=== PATIENT | female | born 1945 | race Caucasian/White ===

== ENCOUNTER 2017-03-22 10:00 | Emergency (ER) | payer MEDICARE, MEDICAID ==
--- NOTE | 2017-03-22 11:00 | RAD ---
CHEST PA AND LATERAL: HISTORY: A 71-year-old female with history of chest pain. COMPARISON: 03/26/15. FINDINGS: Postop midline sternotomy. Minimal cardiomegaly. There appear to be some stable dense calcific irina nges in the region of the mitral valve and mitral valve annulus. No confluent pneumonia, overt sylvester a, or pleural effusion. IMPRESSION: Stable chest. Postop midline sternotomy. No new process. POS: [facility]
[2017-03-22 11:08] LABS: #Lymphocytes 0.8 thou/uL (1.20-3.40); #Monocytes 0.5 thou/uL (0.11-0.59); #Neutrophils 6.3 thou/uL (1.40-6.50); %Eosinophils 0.5 % (0.0-10.0); %Lymphocytes 10.7 % (21.0-51.0); %Monocytes 5.9 % (0.0-10.0); Hematocrit 40.7 % (36.0-47.0); Mean Platelet Volume 7.2 fL (7.4-10.4); Red Blood Cell (RBC) Count 4.33 mill/uL (4.20-5.40); White Blood Cell (WBC) Count 7.6 thou/uL (4.8-10.8)
[2017-03-22] MEDS ORDERED: Acetaminophen 500 MG TAB ONE (11:22)
[2017-03-22 11:30] LABS: ALT (SGPT) 19 U/L (8-55); AST (SGOT) 22 U/L (5-34); Alkaline Phosphatase 84 U/L (40-150); Anion Gap 14 mmol/L (10-20); BUN (Urea Nitrogen) 15 mg/dL (9.8-20.1); Bilirubin, Total 0.7 mg/dL (0.2-1.2); Calc. Creatinine Clearance 0 mL/min (70-130); Calcium 9.3 mg/dL (7.8-10.44); Carbon Dioxide 25 mmol/L (23-31); Chloride 105 mmol/L (98-107); Estimated GFR-MDRD 55; Globulin 3.3 g/dL (2.4-3.5); Protein, Total 7.1 g/dL (6.0-8.3)
[2017-03-22 11:34] LABS: Troponin I 0.014 ng/mL (< 0.028)
[2017-03-22 12:15] LABS: Bilirubin Negative (Negative); Blood, Urine Negative (Negative); Glucose, Urine (Dipstick) Negative (Negative); Ketone, Urine Negative (Negative); Nitrite Negative (Negative); Protein, Urine (Dipstick) 30 mg/dL (Neg-Trace); Urobilinogen 0.2 mg/dL (0.2-1.0)
[2017-03-22 12:18] LABS: Bacteria/HPF None Seen HPF (None Seen); Hyaline Casts/LPF 0-3 HYALINE CAST LPF (0-3 Hyaline); Squamous Epithelial 0-3 HPF (0-3); WBC/HPF 0-3 HPF (0-3)
[2017-03-22 13:46] LABS: Troponin I 0.021 ng/mL (< 0.028)
--- NOTE | 2017-05-09 12:36 | EKG ---
Test Reason : Blood Pressure : / mmHG Vent. Rate : 066 BPM Atrial Rate : 066 BPM P-R Int : 158 ms QRS Dur : 082 ms QT Int : 434 ms P-R-T Axes : 049 055 051 degrees QTc Int : 454 ms Normal sinus rhythm Nospecific ST-T segment abnormalities Normal ECG Confirmed by DAVID CORNEJO ([id number]), senior technical editor ISAMAR FINLEY ([id number] on 05/09/2017 12:35:44 PM Referred By: Confirmed By:DAVID CORNEJO
== END 2017-03-22 14:21 | disposition home or self-care (01) ==
LOC: ERS 10:00
DX: R07.9 Chest pain, unspecified (principal); E11.9 Type 2 diabetes mellitus without complications; E78.5 Hyperlipidemia, unspecified; I10 Essential (primary) hypertension; M19.90 Unspecified osteoarthritis, unspecified site; J45.909 Unspecified asthma, uncomplicated; Z87.891 Personal history of nicotine dependence; Z79.4 Long term (current) use of insulin; Z79.82 Long term (current) use of aspirin; Z79.899 Other long term (current) drug therapy
CPT/HCPCS: 36415; 71020; 80053; 81003; 81015; 82553; 84484; 85025; 87086; 93005

== ENCOUNTER 2017-05-11 18:15 | Inpatient (IN) | payer MEDICARE, MEDICAID ==
[2017-05-11 19:00] LABS: #Eosinphils 0.2 thou/uL (0.0-0.7); #Lymphocytes 0.9 thou/uL (1.20-3.40); #Monocytes 0.9 thou/uL (0.11-0.59); #Neutrophils 5.2 thou/uL (1.40-6.50); %Basophils 0.5 % (0.0-1.0); %Eosinophils 2.4 % (0.0-10.0); %Monocytes 11.9 % (0.0-10.0); %Neutrophils 73.2 % (42.0-75.0); Hemoglobin 12.2 g/dL (12.0-16.0); Mean Corpuscular HGB CONC 32.3 g/dL (32.0-36.0); Mean Corpuscular Hemoglobin 30.3 pg (27.0-31.0); Mean Corpuscular Volume 93.8 fl (81.0-99.0); Mean Platelet Volume 6.7 fL (7.4-10.4); Platelet Count 240 thou/uL (130-400); RBC Distribution Width 15.3 % (11.5-14.5); Red Blood Cell (RBC) Count 4.04 mill/uL (4.20-5.40); White Blood Cell (WBC) Count 7.1 thou/uL (4.8-10.8)
[2017-05-11 19:16] LABS: ALT (SGPT) 20 U/L (8-55); AST (SGOT) 25 U/L (5-34); Albumin 3.9 g/dL (3.4-4.8); Alkaline Phosphatase 84 U/L (40-150); Anion Gap 12 mmol/L (10-20); BUN (Urea Nitrogen) 23 mg/dL (9.8-20.1); Bilirubin, Total 0.5 mg/dL (0.2-1.2); CK (CPK) 100 U/L (29-168); Calc. Creatinine Clearance 0 mL/min (70-130); Calcium 9.8 mg/dL (7.8-10.44); Carbon Dioxide 30 mmol/L (23-31); Chloride 101 mmol/L (98-107); Estimated GFR-MDRD 46; Globulin 3.4 g/dL (2.4-3.5); Glucose 152 mg/dL (80-115); Protein, Total 7.3 g/dL (6.0-8.3); Sodium 138 mmol/L (136-145)
[2017-05-11 19:19] LABS: CKMB 1.2 ng/mL (0-6.6); Troponin I 0.014 ng/mL (< 0.028)
--- NOTE | 2017-05-11 19:22 | RAD ---
AP CHEST: Indication: Cough. IMPRESSION: No focal consolidation. COMMENTS: Stable cardiomegaly. Midline sternotomy changes are similar to comparison dated 11-09-16. No acute osse ous abnormality is evident. POS: FL[facility]
[2017-05-11] MEDS ORDERED: Dextrose 5% in Water 1,000 ML IV PRN (20:00)
[2017-05-11] MEDS ORDERED: Guaifenesin DM 100-10/5 ML UDCUP PO PRN (20:00)
[2017-05-11] MEDS ORDERED: Amlodipine 5 MG TAB PO PRN (20:00)
[2017-05-11] MEDS ORDERED: Senokot 8.6 MG TAB PO PRN (20:00)
[2017-05-11] MEDS ORDERED: Dextrose 50% Abboject 50 ML SYRINGE SLOW IVP PRN (20:00)
[2017-05-11] MEDS ORDERED: methylPREDNISolone Sod Succ/PF 125 MG/2 ML VIAL ONE (20:04)
--- NOTE | 2017-05-11 21:34 | HP ---
REASON FOR ADMISSION: Acute chronic obstructive pulmonary disease exacerbation. HISTORY OF PRESENT ILLNESS: Patient gives history of having right-sided chest pain with coughing spe lls from last Thursday. This has been getting worse to the point she started bringing up brown sputum . She says that it is foul smelling. The right-sided chest discomfort is worse with deep breathing and coughing. No complaints of left-sided chest pain, palpitations, or PND. She normally ambulates inside the house without any assistive devices. Her grandkid had stomach flu, but the patient does n ot have any diarrhea. She uses inhalers in the house, but not nebulizers or oxygen. Has felt feveri sh, but has not measured any temperature as such at home. 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 CURRENT MEDICATIONS: Patient is on Lasix 20 mg daily, Eliquis 5 mg twice daily, Norvasc 5 mg daily, Zocor 20 mg p.o. at bedtime, Multaq 400 mg p.o. twice daily, Lyrica 300 mg p.o. at bedtime, fluoxetin e 40 mg p.o. at bedtime, omega-3 fatty acid 1 capsule daily, fish oil 1 capsule daily, vitamin D3 amador ly, Lopressor twice daily. ALLERGIES: Allergic to PENICILLIN and is LACTOSE intolerant. PERSONAL HISTORY: Quit smoking more than 10 years ago, does not abuse alcohol or drugs now. She stefania es with her daughter. FAMILY HISTORY: Mom in her 80s. She has had diabetes and coronary artery disease. Father too in his 80s. He has had history of rectal cancer, diabetes, and coronary artery disease. REVIEW OF SYSTEMS: The following complete review of systems was negative, unless otherwise mentioned in the HPI or below: Constitutional: Weight loss or gain, ability to conduct usual activities. Skin: Rash, itching. Eyes: Double vision, pain. ENT/Mouth: Nose bleeding, neck stiffness, pain, tenderness. Cardiovascular: Palpitations, dyspnea on exertion, orthopnea. Respiratory: Shortness of breath, wheezing, cough, hemoptysis, fever or night sweats. Gastrointestinal: Poor appetite, abdominal pain, heartburn, nausea, vomiting, constipation, or diarr hea. Genitourinary: Urgency, frequency, dysuria, nocturia. Musculoskeletal: Pain, swelling. Neurologic/Psychiatric: Anxiety, depression. Allergy/Immunologic: Skin rash, bleeding tendency. PHYSICAL EXAMINATION: GENERAL: Patient is a 71-year-old female who is currently not in any acute distress. VITAL SIGNS: Blood pressure 170/60, pulse 70 per minute, respiratory rate 24 per minute, temperature 97.9 degrees Fahrenheit, saturating 89% on room air and 97% on 2 liters nasal cannula. NECK: Supple, no elevated JVD. HEENT: Eyes: Extraocular muscles intact. Pupils reacting to light. Oral cavity mucous membranes a re dry. No exudates or congestion. CARDIOVASCULAR: S1, S2 heard. Regular rhythm. RESPIRATORY: Air entry 1+ bilateral. Scattered wheezes plus bilateral. Rhonchi plus bilateral. ABDOMEN: Soft, bowel sounds heard. No tenderness, rigidity, or guarding. EXTREMITIES: There is 1+ peripheral edema, no calf tenderness. VASCULAR SYSTEM: Peripheral pulses 1+ bilateral. No ischemic ulcerations or gangrene. CENTRAL NERVOUS SYSTEM: No gross focal deficits seen. Patient is alert, awake, and oriented well. PSYCHIATRIC: Patient's mood is euthymic. No hallucinations or delusions. LABORATORY AND X-RAY FINDINGS: EKG done shows normal sinus rhythm at 66 beats per minute, no gross S T-T wave changes. White count of 7, H&H 12 and 37, platelet count 240, MCV is 93 with 73% neutrophil s. Electrolytes are stable. BUN 23, creatinine 1.1, glucose 152. Liver enzymes are within normal l imits. One set of cardiac enzymes are negative. BNP is 260. Albumin is 3.9. Chest x-ray done show s mild cardiomegaly; otherwise no acute abnormality. CLINICAL IMPRESSION AND PLAN: Patient will be under observation on telemetry for acute COPD/asthma e xacerbation. We will place her on DuoNebs q.6 hourly, Solu-Medrol 40 mg IV q.6 hourly, Levaquin 750 mg IV daily. Influenza nasal swab is pending at present. We will continue our Multaq, aspirin, Eliq uis, Norvasc, fluoxetine, 70/30 insulin, Lyrica, Toprol-XL and Zocor as before. Patient's COPD flare -up improves by around 11 in the morning. She will be discharged, if not she will be switched over t o inpatient status. We will also involve walking program for patient to ambulate. She will be on Mu cinex and Tessalon Perles to bring up to help ease with bringing up her sputum.
[2017-05-11] MEDS: Benzonatate 100 MG CAP PO SCH (23:08)
[2017-05-11] MEDS: Acetaminophen 325 MG TAB PO PRN (23:08)
[2017-05-11] MEDS: guaiFENesin ER 600 MG TAB PO SCH (23:08)
[2017-05-11] MEDS: Insulin NPH/Reg Insulin Hm 300 UNITS/3 ML VIAL SC SCH (23:10)
[2017-05-11] MEDS: Apixaban 5 MG TAB PO SCH (23:13)
[2017-05-11] MEDS: Simvastatin 40 MG TAB PO SCH (23:13)
[2017-05-11] MEDS: Pregabalin 75 MG CAP PO SCH (23:13)
[2017-05-11] MEDS: Famotidine 20 MG TAB PO SCH (23:14)
[2017-05-12 02:16] VITALS: BMI 35.2
[2017-05-12 05:52] LABS: #Lymphocytes 0.3 thou/uL (1.20-3.40); #Monocytes 0.1 thou/uL (0.11-0.59); #Neutrophils 6.3 thou/uL (1.40-6.50); %Eosinophils 0.2 % (0.0-10.0); %Lymphocytes 5.1 % (21.0-51.0); %Monocytes 0.9 % (0.0-10.0); %Neutrophils 93.9 % (42.0-75.0); Hemoglobin 11.5 g/dL (12.0-16.0); Mean Corpuscular HGB CONC 32.5 g/dL (32.0-36.0); Mean Corpuscular Hemoglobin 30.2 pg (27.0-31.0); Mean Corpuscular Volume 92.8 fl (81.0-99.0); Mean Platelet Volume 6.9 fL (7.4-10.4); Platelet Count 213 thou/uL (130-400); RBC Distribution Width 15.1 % (11.5-14.5); Red Blood Cell (RBC) Count 3.81 mill/uL (4.20-5.40); White Blood Cell (WBC) Count 6.7 thou/uL (4.8-10.8)
[2017-05-12 06:09] LABS: Anion Gap 15 mmol/L (10-20); BUN (Urea Nitrogen) 27 mg/dL (9.8-20.1); Calc. Creatinine Clearance 68 mL/min (70-130); Calcium 9.1 mg/dL (7.8-10.44); Carbon Dioxide 23 mmol/L (23-31); Chloride 99 mmol/L (98-107); Estimated GFR-MDRD 42; Glucose 274 mg/dL (80-115); Potassium 4.7 mmol/L (3.5-5.1); Sodium 132 mmol/L (136-145)
[2017-05-12] MEDS: HumaLOG 300 UNITS/3 ML VIAL SC PRN ×3 (06:26→21:05)
[2017-05-12] MEDS ORDERED: Insulin NPH/Reg Insulin Hm 300 UNITS/3 ML VIAL SC SCH ×4 (09:00→22:00)
[2017-05-12] MEDS: Dronedarone HCl 400 MG TAB PO SCH ×2 (10:01→17:09)
[2017-05-12] MEDS: Amlodipine 5 MG TAB PO SCH (10:01)
[2017-05-12] MEDS: Benzonatate 100 MG CAP PO SCH ×3 (10:02→21:04)
[2017-05-12] MEDS: Apixaban 5 MG TAB PO SCH ×2 (10:02→21:03)
[2017-05-12] MEDS: Famotidine 20 MG TAB PO SCH ×2 (10:03→21:03)
[2017-05-12] MEDS: FLUoxetine HCl 20 MG/5 ML UDCUP PO SCH (10:03)
[2017-05-12] MEDS: guaiFENesin ER 600 MG TAB PO SCH ×2 (10:03→21:03)
[2017-05-12] MEDS: Insulin NPH/Reg Insulin Hm 300 UNITS/3 ML VIAL SC SCH (10:03)
[2017-05-12] MEDS ORDERED: Diabetic Tussin 200 MG/10 ML UDCUP PO PRN (12:49)
[2017-05-12] MEDS: Doxycycline 100 MG CAP PO SCH (21:03)
[2017-05-12] MEDS: Pregabalin 75 MG CAP PO SCH (21:04)
[2017-05-12] MEDS: Simvastatin 40 MG TAB PO SCH (21:04)
--- NOTE | 2017-05-12 22:20 | PDOC.PN ---
- Subjective Encounter Start Date: 05/12/17 Encounter Start Time: 12:00 Patient seen and examined. SOB/Wheezing +. No overnight events - Objective MAR Reviewed: Yes Vital Signs & Weight: Vital Signs (12 hours) Temp Pulse Resp BP Pulse Ox 05/12/17 19:47 97.2 F L 83 20 159/65 H 92 L 05/12/17 19:23 76 16 97 05/12/17 15:20 97.8 F 76 16 147/62 H 96 I&O: 05/11/17 05/12/17 05/13/17 06:59 06:59 06:59 Intake Total 300 Balance 300 Result Diagrams: 05/13/17 04:19 05/13/17 04:19 Additional Labs: Accuchecks 05/12/17 05/12/17 20:34 17:08 POC Glucose 367 H 309 H Radiology Reviewed by me: Yes (CXR - No infiltrate) EKG Reviewed by me: Yes (Tele SR) Phys Exam - Physical Examination Pt in mild resp distress, Accessory muscle of resp in use Respiratory: no rales, wheezing present Scat rhonchi. symmetrical Cardiovascular: RRR, no rub no heaves/pulsations Gastrointestinal: soft, non-tender, no distention, positive bowel sounds Musculoskeletal: no edema Neurological: non-focal, moves all 4 limbs Psychiatric: normal affect, A&O x 3 Dx/Plan - Plan IMPRESSION: 1. Acute hypoxic Resp failure/COPD Exacerbation 2. Par Afib on anticoag 3. DM2 - uncontrolled 4. HTN 5. Obesity BMI 35/CKD 3/CAD s/p CABG/Dyslipidemia PLAN: * Change Levaquin to Ceftriaxone with Doxy (Interaction with Multaq) * Cont IV Steroids * Increase Insulin dose due to hyperglycemia * Cont current meds as below * Change to inpt Review of Systems - Review of Systems Cardiovascular: negative: chest pain, palpitations, orthopnea, paroxysmal nocturnal dyspnea, edema, light headedness Gastrointestinal: negative: Nausea, Vomiting, Abdominal Pain, Diarrhea, Constipation, Melena, Hematochezia, Other Genitourinary: negative: Dysuria, Frequency, Incontinence, Hematuria, Retention - Medications/Allergies Allergies/Adverse Reactions: Allergies Allergy/AdvReac Type Severity Reaction Status Date / Time Penicillins Allergy Intermediate Verified 05/11/17 21:57 lactose Allergy Verified 05/11/17 21:57 Medications: Current Medications Acetaminophen (Tylenol) 650 mg PO Q4H PRN PRN Reason: Headache/Fever or Pain Last Admin: 05/11/17 23:08 Dose: 650 mg Albuterol/Ipratropium (Duoneb) 3 ml NEB [id number] [facility] Last Admin: 05/12/17 19:23 Dose: 3 ml Amlodipine Besylate (Norvasc) 5 mg PO DAILY [facility] Last Admin: 05/12/17 10:01 Dose: 5 mg Apixaban (Eliquis) 5 mg PO BID [facility] Last Admin: 05/12/17 21:03 Dose: 5 mg Aspirin (Aspirin Chewable) 81 mg PO DAILY [facility] Last Admin: 05/12/17 10:02 Dose: 81 mg Benzonatate (Tessalon) 100 mg PO TID [facility] Last Admin: 05/12/17 21:04 Dose: 100 mg Dextrose/Water (Dextrose 50%) 25 gm SLOW IVP PRN PRN PRN Reason: Hypoglycemia Doxycycline Hyclate (Vibramycin) 100 mg PO BID [facility] Last Admin: 05/12/17 21:03 Dose: 100 mg Dronedarone (Multaq) 400 mg PO BID-[facility] Last Admin: 05/12/17 17:09 Dose: 400 mg Famotidine (Pepcid) 20 mg PO BID [facility] Last Admin: 05/12/17 21:03 Dose: 20 mg Fluoxetine HCl (Prozac Oral Soln) 40 mg PO DAILY [facility] Last Admin: 05/12/17 10:03 Dose: 40 mg Glucagon (Glucagon) 1 mg IM PRN PRN PRN Reason: Hypoglycemia Guaifenesin (Mucinex) 600 mg PO Q12HR [facility] Last Admin: 05/12/17 21:03 Dose: 600 mg Guaifenesin (Robitussin Sf) 200 mg PO Q4H PRN PRN Reason: Cough Guaifenesin/Dextromethorphan (Robitussin Dm) 15 ml PO Q4H PRN PRN Reason: Cough Dextrose/Water (D5w) 1,000 mls @ 0 mls/hr IV .Q0M PRN; As Directed PRN Reason: Hypoglycemia Insulin Human Isoph/Insulin Regular (Humulin 70/30) 28 units SC BID-[facility] Insulin Human Isoph/Insulin Regular (Humulin 70/30) 28 units SC NOW [facility] Stop: 05/12/17 23:59 Insulin Human Lispro (Humalog) 0 units SC .MILD SLIDING SCALE PRN PRN Reason: Mild Correctional Scale Last Admin: 05/12/17 13:21 Dose: 5 unit Insulin Human Lispro (Humalog) 0 units SC .BEDTIME SLIDING SC PRN PRN Reason: Bedtime Correctional Scale Last Admin: 05/12/17 21:05 Dose: 5 unit Methylprednisolone Sodium Succinate (Solu-Medrol) 20 mg IVP Q8HR [facility] Last Admin: 05/12/17 21:57 Dose: 20 mg Metoprolol Succinate (Toprol Xl) 25 mg PO DAILY [facility] Last Admin: 05/12/17 10:03 Dose: 25 mg Pregabalin (Lyrica) 300 mg PO HS [facility] Last Admin: 05/12/17 21:04 Dose: 300 mg Senna (Senokot) 2 tab PO HSPRN PRN PRN Reason: Constipation Simvastatin (Zocor) 20 mg PO QPM [facility] Last Admin: 05/12/17 21:04 Dose: 20 mg Sodium Chloride (Flush - Normal Saline) 10 ml IVF Q12HR [facility] Last Admin: 05/12/17 21:05 Dose: 10 ml Sodium Chloride (Flush - Normal Saline) 10 ml IVF PRN PRN PRN Reason: Saline Flush Last Admin: 05/12/17 21:56 Dose: 10 ml
[2017-05-13] MEDS: Acetaminophen 325 MG TAB PO PRN (00:19)
[2017-05-13] MEDS: HumaLOG 300 UNITS/3 ML VIAL SC PRN ×3 (02:13→17:33)
[2017-05-13 05:37] LABS: ALT (SGPT) 19 U/L (8-55); AST (SGOT) 22 U/L (5-34); Albumin 3.4 g/dL (3.4-4.8); Alkaline Phosphatase 70 U/L (40-150); Anion Gap 15 mmol/L (10-20); BUN (Urea Nitrogen) 33 mg/dL (9.8-20.1); Bilirubin, Total 0.5 mg/dL (0.2-1.2); Calc. Creatinine Clearance 78 mL/min (70-130); Calcium 9.3 mg/dL (7.8-10.44); Carbon Dioxide 24 mmol/L (23-31); Chloride 98 mmol/L (98-107); Estimated GFR-MDRD 49; Glucose 124 mg/dL (80-115); Magnesium 2.1 mg/dL (1.6-2.6); Potassium 4.8 mmol/L (3.5-5.1); Protein, Total 6.4 g/dL (6.0-8.3); Sodium 132 mmol/L (136-145)
[2017-05-13 06:43] LABS: Hemoglobin 11.1 g/dL (12.0-16.0); Mean Corpuscular HGB CONC 32.9 g/dL (32.0-36.0); Mean Corpuscular Hemoglobin 30.4 pg (27.0-31.0); Mean Corpuscular Volume 92.5 fl (81.0-99.0); Platelet Count 240 thou/uL (130-400); RBC Distribution Width 15.3 % (11.5-14.5); Red Blood Cell (RBC) Count 3.65 mill/uL (4.20-5.40); White Blood Cell (WBC) Count 12.8 thou/uL (4.8-10.8)
[2017-05-13 06:57] LABS: Anisocytosis SLIGHT = 6-15 cells (100X) (0-5/hpf); Band 5 % (5-11); Lymphocytes 5 % (21-51); MDiff Complete? YES; Monocytes 2 % (0-10); Neutrophil 87 % (42-75); PLT Morphology Comment Appears Adequate; Reactive Lymphocytes 1 % (0-10)
[2017-05-13] MEDS: Dronedarone HCl 400 MG TAB PO SCH ×2 (09:36→16:30)
[2017-05-13] MEDS: FLUoxetine HCl 20 MG/5 ML UDCUP PO SCH (09:37)
[2017-05-13] MEDS: guaiFENesin ER 600 MG TAB PO SCH ×2 (09:37→21:18)
[2017-05-13] MEDS: Benzonatate 100 MG CAP PO SCH ×3 (09:37→21:18)
[2017-05-13] MEDS: Amlodipine 5 MG TAB PO SCH (09:37)
[2017-05-13] MEDS: Apixaban 5 MG TAB PO SCH ×2 (09:37→21:17)
[2017-05-13] MEDS: Famotidine 20 MG TAB PO SCH ×2 (09:38→21:18)
[2017-05-13] MEDS: Doxycycline 100 MG CAP PO SCH ×2 (09:38→21:17)
[2017-05-13] MEDS: Insulin NPH/Reg Insulin Hm 300 UNITS/3 ML VIAL SC SCH ×2 (09:39→17:32)
--- NOTE | 2017-05-13 21:05 | PDOC.PN ---
- Subjective Encounter Start Date: 05/13/17 Encounter Start Time: 11:00 Patient seen and examined. SOB on exertion +. Cough with scant production +. No overnight events - Objective MAR Reviewed: Yes Vital Signs & Weight: Vital Signs (12 hours) Temp Pulse Resp BP Pulse Ox 05/13/17 20:08 97.6 F 67 22 H 128/70 93 L 05/13/17 17:00 97.4 F L 67 22 H 94 L 05/13/17 16:50 97.4 F L 67 22 H 153/71 H 94 L 05/13/17 15:57 66 16 05/13/17 14:56 97.6 F 66 18 157/71 H 94 L 05/13/17 11:47 89 L 05/13/17 11:45 97.7 F 68 20 144/65 H 89 L 05/13/17 09:37 73 I&O: 05/12/17 05/13/17 05/14/17 06:59 06:59 06:59 Intake Total 1680 480 Output Total 800 1600 Balance 880 -1120 Result Diagrams: 05/13/17 04:19 05/13/17 04:19 Additional Labs: Accuchecks 05/13/17 05/13/17 05/13/17 16:56 11:49 02:07 POC Glucose 176 H 258 H 215 H 05/12/17 20:34 POC Glucose 367 H Phys Exam - Physical Examination Constitutional: NAD Respiratory: no rales Scat wheezing/rhochi Cardiovascular: RRR, no rub Gastrointestinal: soft, non-tender, positive bowel sounds Neurological: non-focal, moves all 4 limbs Dx/Plan - Plan IMPRESSION: 1. Acute hypoxic Resp failure/COPD Exacerbation 2. Par Afib on anticoag 3. DM2 - uncontrolled 4. HTN 5. Obesity BMI 35/CKD 3/CAD s/p CABG/Dyslipidemia PLAN: * Cont Ceftriaxone with Doxy * Cont IV Steroids at current dose * Novolin 70/30 changed to 28 units BID * Cont current meds as below * Probably need home O2 at dc Review of Systems - Review of Systems Cardiovascular: negative: chest pain, palpitations, orthopnea, paroxysmal nocturnal dyspnea, edema, light headedness Gastrointestinal: negative: Nausea, Vomiting, Abdominal Pain, Diarrhea, Constipation, Melena, Hematochezia Genitourinary: negative: Dysuria, Frequency, Incontinence, Hematuria, Retention - Medications/Allergies Allergies/Adverse Reactions: Allergies Allergy/AdvReac Type Severity Reaction Status Date / Time Penicillins Allergy Intermediate Verified 05/11/17 21:57 lactose Allergy Verified 05/11/17 21:57 Medications: Current Medications Acetaminophen (Tylenol) 650 mg PO Q4H PRN PRN Reason: Headache/Fever or Pain Last Admin: 05/13/17 00:19 Dose: 650 mg Albuterol/Ipratropium (Duoneb) 3 ml NEB [id number] [facility] Last Admin: 05/13/17 19:40 Dose: 3 ml Amlodipine Besylate (Norvasc) 5 mg PO DAILY [facility] Last Admin: 05/13/17 09:37 Dose: 5 mg Apixaban (Eliquis) 5 mg PO BID [facility] Last Admin: 05/13/17 09:37 Dose: 5 mg Aspirin (Aspirin Chewable) 81 mg PO DAILY [facility] Last Admin: 05/13/17 09:37 Dose: 81 mg Benzonatate (Tessalon) 100 mg PO TID [facility] Last Admin: 05/13/17 16:30 Dose: Not Given Dextrose/Water (Dextrose 50%) 25 gm SLOW IVP PRN PRN PRN Reason: Hypoglycemia Doxycycline Hyclate (Vibramycin) 100 mg PO BID [facility] Last Admin: 05/13/17 09:38 Dose: 100 mg Dronedarone (Multaq) 400 mg PO BID-[facility] Last Admin: 05/13/17 16:30 Dose: 400 mg Famotidine (Pepcid) 20 mg PO BID [facility] Last Admin: 05/13/17 09:38 Dose: 20 mg Fluoxetine HCl (Prozac Oral Soln) 40 mg PO DAILY [facility] Last Admin: 05/13/17 09:37 Dose: 40 mg Glucagon (Glucagon) 1 mg IM PRN PRN PRN Reason: Hypoglycemia Guaifenesin (Mucinex) 600 mg PO Q12HR [facility] Last Admin: 05/13/17 09:37 Dose: 600 mg Guaifenesin (Robitussin Sf) 200 mg PO Q4H PRN PRN Reason: Cough Last Admin: 05/13/17 00:20 Dose: 200 mg Guaifenesin/Dextromethorphan (Robitussin Dm) 15 ml PO Q4H PRN PRN Reason: Cough Dextrose/Water (D5w) 1,000 mls @ 0 mls/hr IV .Q0M PRN; As Directed PRN Reason: Hypoglycemia Insulin Human Isoph/Insulin Regular (Humulin 70/30) 28 units SC BID-[facility] Last Admin: 05/13/17 17:32 Dose: 28 unit Insulin Human Lispro (Humalog) 0 units SC .MILD SLIDING SCALE PRN PRN Reason: Mild Correctional Scale Last Admin: 05/13/17 17:33 Dose: 2 unit Insulin Human Lispro (Humalog) 0 units SC .BEDTIME SLIDING SC PRN PRN Reason: Bedtime Correctional Scale Last Admin: 05/13/17 02:13 Dose: 2 unit Methylprednisolone Sodium Succinate (Solu-Medrol) 20 mg IVP Q8HR [facility] Last Admin: 05/13/17 15:14 Dose: 20 mg Metoprolol Succinate (Toprol Xl) 25 mg PO DAILY [facility] Last Admin: 05/13/17 09:38 Dose: 25 mg Pregabalin (Lyrica) 300 mg PO HS [facility] Last Admin: 05/12/17 21:04 Dose: 300 mg Senna (Senokot) 2 tab PO HSPRN PRN PRN Reason: Constipation Simvastatin (Zocor) 20 mg PO QPM [facility] Last Admin: 05/12/17 21:04 Dose: 20 mg Sodium Chloride (Flush - Normal Saline) 10 ml IVF Q12HR [facility] Last Admin: 05/13/17 11:31 Dose: 10 ml Sodium Chloride (Flush - Normal Saline) 10 ml IVF PRN PRN PRN Reason: Saline Flush Last Admin: 05/13/17 06:00 Dose: 10 ml
[2017-05-13] MEDS: Pregabalin 75 MG CAP PO SCH (21:17)
[2017-05-13] MEDS: Simvastatin 40 MG TAB PO SCH (21:18)
[2017-05-14] MEDS: HumaLOG 300 UNITS/3 ML VIAL SC PRN ×3 (05:49→20:30)
[2017-05-14] MEDS: Amlodipine 5 MG TAB PO SCH (08:10)
[2017-05-14] MEDS: Apixaban 5 MG TAB PO SCH ×2 (08:10→20:20)
[2017-05-14] MEDS: Benzonatate 100 MG CAP PO SCH ×3 (08:10→20:19)
[2017-05-14] MEDS: guaiFENesin ER 600 MG TAB PO SCH ×2 (08:10→20:20)
[2017-05-14] MEDS: Dronedarone HCl 400 MG TAB PO SCH ×2 (08:10→16:19)
[2017-05-14] MEDS: Doxycycline 100 MG CAP PO SCH ×2 (08:10→20:18)
[2017-05-14] MEDS: Famotidine 20 MG TAB PO SCH ×2 (08:10→20:20)
[2017-05-14] MEDS: Insulin NPH/Reg Insulin Hm 300 UNITS/3 ML VIAL SC SCH ×2 (08:11→16:19)
[2017-05-14] MEDS: FLUoxetine HCl 20 MG/5 ML UDCUP PO SCH (08:11)
--- NOTE | 2017-05-14 17:27 | PDOC.PN ---
- Subjective Encounter Start Date: 05/14/17 Encounter Start Time: 16:00 Patient seen and examined. SOB improving. Cough +. No overnight events - Objective MAR Reviewed: Yes Vital Signs & Weight: Vital Signs (12 hours) Temp Pulse Resp BP Pulse Ox 05/14/17 16:37 98.3 F 69 20 149/75 H 95 05/14/17 11:30 97.4 F L 68 20 145/69 H 90 L 05/14/17 08:10 73 05/14/17 08:02 97.7 F 73 20 147/74 H 93 L 05/14/17 08:00 97.7 F 73 20 93 L 05/14/17 06:28 62 16 92 L I&O: 05/13/17 05/14/17 05/15/17 06:59 06:59 06:59 Intake Total 1680 480 Output Total 800 1600 Balance 880 -1120 Result Diagrams: 05/13/17 04:19 05/13/17 04:19 Additional Labs: Accuchecks 05/14/17 05/14/17 05/14/17 16:06 11:15 05:25 POC Glucose 137 H 308 H 214 H 05/13/17 21:32 POC Glucose 259 H Phys Exam - Physical Examination Constitutional: NAD Respiratory: no rales, no rhonchi Scat wheezing Cardiovascular: RRR, no rub Gastrointestinal: soft, non-tender, positive bowel sounds Musculoskeletal: no edema Neurological: moves all 4 limbs Dx/Plan - Plan IMPRESSION: 1. Acute hypoxic Resp failure/COPD Exacerbation - improving 2. Par Afib on anticoag 3. DM2 - uncontrolled 4. HTN 5. Obesity BMI 35/CKD 3/CAD s/p CABG/Dyslipidemia PLAN: * Change IV steroids to PO * DC IV Ceftriaxone at dc * Cont PO Doxy * Cont Novolin 70/30 at 28 units BID * Cont current meds as below * Probably need home O2 at dc * DC in AM if stable Review of Systems - Review of Systems Cardiovascular: negative: chest pain, palpitations, orthopnea, paroxysmal nocturnal dyspnea, edema, light headedness Gastrointestinal: negative: Nausea, Vomiting, Abdominal Pain, Diarrhea, Constipation, Melena, Hematochezia - Medications/Allergies Allergies/Adverse Reactions: Allergies Allergy/AdvReac Type Severity Reaction Status Date / Time Penicillins Allergy Intermediate Verified 05/11/17 21:57 lactose Allergy Verified 05/11/17 21:57 Medications: Current Medications Acetaminophen (Tylenol) 650 mg PO Q4H PRN PRN Reason: Headache/Fever or Pain Last Admin: 05/13/17 00:19 Dose: 650 mg Albuterol/Ipratropium (Duoneb) 3 ml NEB [id number] [facility] Last Admin: 05/14/17 16:27 Dose: Not Given Amlodipine Besylate (Norvasc) 5 mg PO DAILY [facility] Last Admin: 05/14/17 08:10 Dose: 5 mg Apixaban (Eliquis) 5 mg PO BID [facility] Last Admin: 05/14/17 08:10 Dose: 5 mg Aspirin (Aspirin Chewable) 81 mg PO DAILY [facility] Last Admin: 05/14/17 08:10 Dose: 81 mg Benzonatate (Tessalon) 100 mg PO TID [facility] Last Admin: 05/14/17 14:01 Dose: 100 mg Dextrose/Water (Dextrose 50%) 25 gm SLOW IVP PRN PRN PRN Reason: Hypoglycemia Doxycycline Hyclate (Vibramycin) 100 mg PO BID [facility] Last Admin: 05/14/17 08:10 Dose: 100 mg Dronedarone (Multaq) 400 mg PO BID-[facility] Last Admin: 05/14/17 16:19 Dose: 400 mg Famotidine (Pepcid) 20 mg PO BID [facility] Last Admin: 05/14/17 08:10 Dose: 20 mg Fluoxetine HCl (Prozac Oral Soln) 40 mg PO DAILY [facility] Last Admin: 05/14/17 08:11 Dose: 40 mg Glucagon (Glucagon) 1 mg IM PRN PRN PRN Reason: Hypoglycemia Guaifenesin (Mucinex) 600 mg PO Q12HR [facility] Last Admin: 05/14/17 08:10 Dose: 600 mg Guaifenesin (Robitussin Sf) 200 mg PO Q4H PRN PRN Reason: Cough Last Admin: 05/13/17 00:20 Dose: 200 mg Guaifenesin/Dextromethorphan (Robitussin Dm) 15 ml PO Q4H PRN PRN Reason: Cough Dextrose/Water (D5w) 1,000 mls @ 0 mls/hr IV .Q0M PRN; As Directed PRN Reason: Hypoglycemia Insulin Human Isoph/Insulin Regular (Humulin 70/30) 28 units SC BID-[facility] Last Admin: 05/14/17 16:19 Dose: 28 unit Insulin Human Lispro (Humalog) 0 units SC .MILD SLIDING SCALE PRN PRN Reason: Mild Correctional Scale Last Admin: 05/14/17 11:17 Dose: 5 unit Insulin Human Lispro (Humalog) 0 units SC .BEDTIME SLIDING SC PRN PRN Reason: Bedtime Correctional Scale Last Admin: 05/13/17 02:13 Dose: 2 unit Metoprolol Succinate (Toprol Xl) 25 mg PO DAILY [facility] Last Admin: 05/14/17 08:10 Dose: 25 mg Prednisone (Prednisone) 20 mg PO QAM-[facility] Pregabalin (Lyrica) 300 mg PO HS [facility] Last Admin: 05/13/17 21:17 Dose: 300 mg Senna (Senokot) 2 tab PO HSPRN PRN PRN Reason: Constipation Simvastatin (Zocor) 20 mg PO QPM [facility] Last Admin: 05/13/17 21:18 Dose: 20 mg Sodium Chloride (Flush - Normal Saline) 10 ml IVF Q12HR [facility] Last Admin: 05/14/17 08:15 Dose: 10 ml Sodium Chloride (Flush - Normal Saline) 10 ml IVF PRN PRN PRN Reason: Saline Flush Last Admin: 05/13/17 06:00 Dose: 10 ml
[2017-05-14] MEDS: Pregabalin 75 MG CAP PO SCH (20:19)
[2017-05-14] MEDS: Simvastatin 40 MG TAB PO SCH (20:19)
[2017-05-15] MEDS ORDERED: predniSONE 20 MG TAB PO SCH (08:00)
[2017-05-15] MEDS: FLUoxetine HCl 20 MG/5 ML UDCUP PO SCH (08:02)
[2017-05-15] MEDS: Famotidine 20 MG TAB PO SCH (08:03)
[2017-05-15] MEDS: Benzonatate 100 MG CAP PO SCH ×2 (08:03→14:41)
[2017-05-15] MEDS: guaiFENesin ER 600 MG TAB PO SCH (08:03)
[2017-05-15] MEDS: Doxycycline 100 MG CAP PO SCH (08:03)
[2017-05-15] MEDS: Apixaban 5 MG TAB PO SCH (08:03)
[2017-05-15] MEDS: Amlodipine 5 MG TAB PO SCH (08:03)
[2017-05-15] MEDS: Dronedarone HCl 400 MG TAB PO SCH (08:03)
[2017-05-15] MEDS: Insulin NPH/Reg Insulin Hm 300 UNITS/3 ML VIAL SC SCH (08:04)
[2017-05-15] MEDS: Acetaminophen 325 MG TAB PO PRN (09:26)
--- NOTE | 2017-05-15 13:13 | DIS ---
DATE OF ADMISSION: 05/12/2017 DATE OF DISCHARGE: 05/15/2017 DISCHARGE DISPOSITION: Home. FOLLOWUP: 1. Follow up with primary care physician, Kristi Castro in 1 week. 2. Home oxygen has been arranged. The patient was seen and examined on the day of discharge. Denies any new complaints. No chest pain , shortness of breath, palpitations. Overall, symptomatically feels much better. ALLERGIES: PENICILLIN and LACTOSE. DISCHARGE MEDICATIONS: 1. Doxycycline 100 mg twice a day for next 4 days. 2. Prednisone taper. 3. Other home medications were resumed including amlodipine 5 mg daily, Eliquis 5 mg b.i.d., aspirin 81 mg daily, vitamin D3 2000 units b.i.d., Multaq 400 mg b.i.d., fish oil b.i.d., Prozac 40 mg daily , Lasix 20 mg daily, NovoLog mix 70-30 20 units b.i.d., Toprol-XL 25 mg daily, Lyrica 300 mg at [facility], simvastatin 20 mg q.p.m. INPATIENT CONSULTANTS: None. BRIEF HOSPITAL COURSE: The patient is a 71-year-old female with COPD, coronary artery disease, hyper tension and diabetes mellitus type 2, presented to the hospital with worsening shortness of breath. Her workup in the emergency room was consistent with acute hypoxic respiratory failure secondary to c hronic obstructive pulmonary disease exacerbation. She showed good improvement with steroids, antibi otics and nebulizer treatments. On the day of discharge, she quantified for home oxygen which will b e arranged. Symptomatically, she feels much better and stable for discharge. Plan of care was discussed with the patient in detail. She stated understanding. FINAL DIAGNOSES: 1. Acute hypoxic respiratory failure secondary to chronic obstructive pulmonary disease exacerbation . 2. Chronic respiratory failure. Home oxygen will be arranged. 3. Diabetes mellitus type 2, uncontrolled secondary to steroids. 4. Paroxysmal atrial fibrillation on anticoagulation. 5. Hypertension. 6. Obesity with a BMI of 35. 7. Chronic kidney disease stage 3. 8. Coronary artery disease, status post coronary artery bypass graft. 9. Dyslipidemia. Plan of care was discussed with the patient in detail. She stated understanding. Total time coordinating the discharge of this patient including the home oxygen setup was 35 minutes.
[2017-05-15 15:37] VITALS: BP 171/78; TEMP 97.2
--- NOTE | 2017-06-20 20:17 | EKG ---
Test Reason : Blood Pressure : / mmHG Vent. Rate : 066 BPM Atrial Rate : 066 BPM P-R Int : 178 ms QRS Dur : 086 ms QT Int : 418 ms P-R-T Axes : 038 059 039 degrees QTc Int : 438 ms Normal sinus rhythm with sinus arrhythmia Normal ECG Confirmed by TO JOSE MANUEL Mukherjee ([id number]), city editor ISAMAR FINLEY ([id number]) on 06/20/2017 8:17:00 PM Referred By: Confirmed By:JOSE MANUEL ECHAVARRIA M.D.
== END 2017-05-15 15:23 | disposition home or self-care (01) | DRG 189 ==
LOC: ERS 18:15 → 2SW 19:01 → OBSVTOIN 05-12 14:17 → T4-A 05-13 16:25
PROVIDERS: ADMIT Internal Medicine; ATTEND Internal Medicine
DX: J96.21 Acute and chronic respiratory failure with hypoxia (principal); E11.22 Type 2 diabetes mellitus with diabetic chronic kidney disease; E11.65 Type 2 diabetes mellitus with hyperglycemia; J44.1 Chronic obstructive pulmonary disease with (acute) exacerbation; I48.0 Paroxysmal atrial fibrillation; Z79.01 Long term (current) use of anticoagulants; E66.9 Obesity, unspecified; Z68.35 Body mass index [BMI] 35.0-35.9, adult; E78.5 Hyperlipidemia, unspecified; I25.10 Atherosclerotic heart disease of native coronary artery without angina pectoris; Z95.1 Presence of aortocoronary bypass graft; I12.9 Hypertensive chronic kidney disease with stage 1 through stage 4 chronic kidney disease, or unspecified chronic kidney disease; N18.3 Chronic kidney disease, stage 3 (moderate); T38.0X5A Adverse effect of glucocorticoids and synthetic analogues, initial encounter; Z23 Encounter for immunization; Z79.4 Long term (current) use of insulin
CPT/HCPCS: 36415; 36416; 71045; 80048; 80053; 82553; 83605; 83735; 83880; 84484; 85025; 87040; 87070; 87205; 87804; 90471; 90732; 93005; 94640; 94760; 96374; A4216; G0009; J1956; J2920; J2930; J7506; J7620

== ENCOUNTER 2017-06-01 14:05 | Outpatient (CLI) | payer MEDICARE, MEDICAID ==
--- NOTE | 2017-06-01 15:40 | RAD ---
RADIOGRAPH CHEST 2 VIEWS: Date: 06/01/17. Time: 2:57 p.m. HISTORY: A 71-year-old female with fever. COMPARISON: 05/11/17. FINDINGS: There is cardiomegaly, and the cardiac size has increased since the prior study. There are diffuse b ilateral mild interstitial infiltrates, which could represent pulmonary interstitial edema, new or wo rse since the prior study. Sternotomy wires are again noted. No pneumothorax. No consolidation. N o definite pleural effusion identified. IMPRESSION: 1. Diffuse mild interstitial densities, which questionably represent pulmonary interstitial edema. 2. Cardiomegaly. 3. The findings questionably represent congestive heart failure. 4. Recommend short interval followup. [facility] [] POS: [facility]
== END 2017-06-01 14:06 | disposition home or self-care (01) ==
LOC: RAD-FRANK 14:05
PROVIDERS: ATTEND Nurse Practitioner Family
DX: R50.9 Fever, unspecified (principal); J98.4 Other disorders of lung; I51.7 Cardiomegaly
CPT/HCPCS: 71046

== ENCOUNTER 2017-06-02 10:46 | Observation (INO) | payer MEDICARE, MEDICAID ==
[2017-06-02] MEDS ORDERED: Acetaminophen 500 MG TAB ONE (11:01)
[2017-06-02 11:25] LABS: #Lymphocytes 0.8 thou/uL (1.20-3.40); #Monocytes 0.4 thou/uL (0.11-0.59); #Neutrophils 2.4 thou/uL (1.40-6.50); %Basophils 0.4 % (0.0-1.0); %Eosinophils 0.2 % (0.0-10.0); %Lymphocytes 21.6 % (21.0-51.0); %Monocytes 10.5 % (0.0-10.0); %Neutrophils 67.3 % (42.0-75.0); Hemoglobin 12.9 g/dL (12.0-16.0); Mean Corpuscular HGB CONC 31.9 g/dL (32.0-36.0); Mean Corpuscular Hemoglobin 29.3 pg (27.0-31.0); Mean Corpuscular Volume 92.1 fl (81.0-99.0); Mean Platelet Volume 7.5 fL (7.4-10.4); Platelet Count 143 thou/uL (130-400); RBC Distribution Width 15.6 % (11.5-14.5); White Blood Cell (WBC) Count 3.6 thou/uL (4.8-10.8)
[2017-06-02 11:50] LABS: ALT (SGPT) 25 U/L (8-55); AST (SGOT) 31 U/L (5-34); Albumin 3.6 g/dL (3.4-4.8); Alkaline Phosphatase 56 U/L (40-150); Anion Gap 16 mmol/L (10-20); BUN (Urea Nitrogen) 17 mg/dL (9.8-20.1); Bilirubin, Total 0.5 mg/dL (0.2-1.2); CK (CPK) 131 U/L (29-168); Calc. Creatinine Clearance 0 mL/min (70-130); Calcium 9.1 mg/dL (7.8-10.44); Carbon Dioxide 24 mmol/L (23-31); Chloride 101 mmol/L (98-107); Estimated GFR-MDRD 64; Globulin 3.2 g/dL (2.4-3.5); Glucose 149 mg/dL (80-115); Potassium 4.3 mmol/L (3.5-5.1); Protein, Total 6.8 g/dL (6.0-8.3); Sodium 137 mmol/L (136-145)
[2017-06-02 11:51] LABS: CKMB 1.7 ng/mL (0-6.6); Troponin I 0.084 ng/mL (< 0.028)
--- NOTE | 2017-06-02 12:05 | RAD ---
CHEST 1 VIEW: Date: 06/02/17 HISTORY: Chest pain. COMPARISON: 05/30/17, 06/01/17. FINDINGS: Portable upright chest demonstrates sternotomy wires. Normal cardiac silhouette. Pulmonary vessels ar e slightly prominent. Patchy interstitial opacities superimposed upon chronic change. No pneumothorax or osseous abnormalities. IMPRESSION: 1. Atherosclerosis. 2. Interstitial infiltrates superimposed upon chronic change. POS: [facility]
[2017-06-02 15:10] LABS: Troponin I 0.074 ng/mL (< 0.028)
[2017-06-02] MEDS ORDERED: Guaifenesin DM 100-10/5 ML UDCUP PO PRN (15:34)
[2017-06-02 15:54] VITALS: BMI 35.9
--- NOTE | 2017-06-02 16:06 | HP ---
REASON FOR ADMISSION: Chest pain and severe deconditioning. HISTORY OF PRESENT ILLNESS: The patient gives history of feeling sick for almost a week now. The pa nika has had nauseous feeling and has not been able to eat well. She was also feeling weak and had felt feverish. This was from Thursday. She went to see her primary care physician yesterday, Ms. Kristi Bustillo. She was checked for flu and it was negative. The patient has complaints of cough with expe ctoration of brown sputum. She has had some back pain which started this morning. This was associat ed with headache. Home health came to check on her this morning and they asked her to go to the [facility] room. Her daughter who is here at bedside also mentions that her family members have had flu-l jordon illness and patient also got it. On Thursday, patient's blood pressure was 88/40. Yesterday when they went to see her primary care physician, Dr. Kristi Bustillo, most of her medications were discontinu ed and she was asked to take only Toprol-XL, Eliquis, and Multaq. Currently, she has no complaints o f shortness of breath, chest pain or palpitation. PAST MEDICAL AND SURGICAL HISTORY: Chronic atrial fibrillation, hypertension, diabetes mellitus type 2, history of CABG for 4-vessel disease, hysterectomy, bilateral carotid artery disease, dyslipidemi a, peripheral neuropathy, tonsillectomy, and depression. CURRENT MEDICATIONS: The patient is on Toprol-XL 25 mg daily, Eliquis 5 mg twice daily, Multaq 400 m g twice daily, and NovoLog 70/30 two times daily. ALLERGIES: Allergic to LACTOSE and PENICILLIN. PERSONAL HISTORY: Quit smoking more than 10 years ago, does not abuse alcohol or drugs. She lives w ith her daughter. FAMILY HISTORY: Mother had history of diabetes and coronary artery disease. Both parents in . Father had history of rectal cancer, diabetes and coronary artery disease. REVIEW OF SYSTEMS: The following complete review of systems was negative, unless otherwise mentioned in the HPI or below: Constitutional: Weight loss or gain, ability to conduct usual activities. Sk in: Rash, itching. Eyes: Double vision, pain. ENT/Mouth: Nose bleeding, neck stiffness, pain, te nderness. Cardiovascular: Palpitations, dyspnea on exertion, orthopnea. Respiratory: Shortness of breath, wheezing, cough, hemoptysis, fever or night sweats. Gastrointestinal: Poor appetite, abdom inal pain, heartburn, nausea, vomiting, constipation, or diarrhea. Genitourinary: Urgency, frequenc y, dysuria, nocturia. Musculoskeletal: Pain, swelling. Neurologic/Psychiatric: Anxiety, depressio n. Allergy/Immunologic: Skin rash, bleeding tendency. PHYSICAL EXAMINATION: GENERAL: The patient is a 71-year-old female who is currently not in any acute distress. VITAL SIGNS: Blood pressure 122/46, pulse 74 per minute, respiratory rate 18 per minute, temperature 98.3 degrees Fahrenheit, saturating 98% on 2 liters nasal cannula. NECK: Supple, no elevated JVD. HEENT: Eyes, extraocular muscles intact. Pupils reacting to light. Oral cavity mucous membranes ar e moist. No exudates or congestion. CARDIOVASCULAR: S1, S2 heard. Regular rhythm. RESPIRATORY: Air entry 1+ bilateral. Scattered rhonchi plus no wheezes. ABDOMEN: Soft, bowel sounds heard. No tenderness, rigidity or guarding. EXTREMITIES: No peripheral edema or calf tenderness. VASCULAR SYSTEM: Peripheral pulses 1+ bilateral. No ischemic ulcerations or gangrene. CENTRAL NERVOUS SYSTEM: No gross focal deficits seen. Patient is alert, awake, and oriented well. PSYCHIATRIC: The patient's mood is euthymic. No hallucinations or delusions. LABORATORY DATA AND X-RAY FINDINGS: White count 3.6, H and H 12 and 40, platelet count 143, MCV is 9 2 with 67% neutrophils. Electrolytes are stable. BUN 17, creatinine 0.8, glucose 149, troponin I 0. 08. BNP is 431, albumin is 3.6. Chest x-ray done shows no acute process. Chest x-ray done shows pa tchy infiltrates superimposed upon chronic changes. CLINICAL IMPRESSION AND PLAN: The patient will be under observation on telemetry for atypical chest pain with demand ischemia and mild elevation in her BNP. The patient states she has had bronchitis a nd was recently hospitalized and has not really recovered well plus she apparently got really reinfec vijaya with another virus, which was running in the family. She will be closely monitored on telemetry. We will not diurese her for now. The plan is to get PT evaluation and rehabilitation evaluation as well. We will place her back on Eliquis, aspirin, and Multaq as before along with Toprol-XL. We wi ll see if she has any RVR with her atrial fibrillation in which case, we will get Dr. Parisi to co me see her and then diurese her if needed. We will continue to closely monitor her otherwise.
[2017-06-02 17:52] LABS: Troponin I 0.071 ng/mL (< 0.028)
[2017-06-02] MEDS: Dronedarone HCl 400 MG TAB PO SCH (17:55)
[2017-06-02] MEDS: Ondansetron HCl/PF 4 MG/2 ML Vial SLOW IVP PRN (18:44)
[2017-06-02] MEDS: Famotidine 20 MG TAB PO SCH (21:22)
[2017-06-02] MEDS: Docusate 100 MG CAP PO SCH (21:22)
[2017-06-02] MEDS: Apixaban 5 MG TAB PO SCH (21:22)
[2017-06-03 05:21] LABS: #Lymphocytes 0.6 thou/uL (1.20-3.40); #Monocytes 0.4 thou/uL (0.11-0.59); %Basophils 0.2 % (0.0-1.0); %Eosinophils 1.2 % (0.0-10.0); %Lymphocytes 18.9 % (21.0-51.0); %Monocytes 13.1 % (0.0-10.0); %Neutrophils 66.6 % (42.0-75.0); Hemoglobin 11.4 g/dL (12.0-16.0); Mean Corpuscular HGB CONC 32.1 g/dL (32.0-36.0); Mean Corpuscular Hemoglobin 29.4 pg (27.0-31.0); Mean Corpuscular Volume 91.9 fl (81.0-99.0); Mean Platelet Volume 7.6 fL (7.4-10.4); Platelet Count 132 thou/uL (130-400); RBC Distribution Width 15.3 % (11.5-14.5); Red Blood Cell (RBC) Count 3.87 mill/uL (4.20-5.40); White Blood Cell (WBC) Count 2.9 thou/uL (4.8-10.8)
[2017-06-03 05:34] LABS: Anion Gap 13 mmol/L (10-20); BUN (Urea Nitrogen) 15 mg/dL (9.8-20.1); Calc. Creatinine Clearance 109 mL/min (70-130); Calcium 8.6 mg/dL (7.8-10.44); Carbon Dioxide 23 mmol/L (23-31); Chloride 103 mmol/L (98-107); Estimated GFR-MDRD 72; Glucose 112 mg/dL (80-115); Potassium 4.4 mmol/L (3.5-5.1); Sodium 135 mmol/L (136-145)
[2017-06-03] MEDS: Acetaminophen 325 MG TAB PO PRN ×2 (08:18→22:15)
[2017-06-03] MEDS: Famotidine 20 MG TAB PO SCH ×2 (08:19→20:31)
[2017-06-03] MEDS: Docusate 100 MG CAP PO SCH ×2 (08:19→20:31)
[2017-06-03] MEDS: Apixaban 5 MG TAB PO SCH ×2 (08:19→20:31)
[2017-06-03] MEDS: Dronedarone HCl 400 MG TAB PO SCH ×2 (08:19→16:02)
[2017-06-03] MEDS ORDERED: FLU VACC TS2017-18 (>65YR) 0.5 ML SYRINGE IM ONE (09:00)
--- NOTE | 2017-06-03 11:25 | PDOC.PN ---
- Subjective Encounter Start Date: 06/03/17 Encounter Start Time: 08:00 Subjective: no chest pain or palp -: breathing better, is amb in room - Objective Resuscitation Status: Resuscitation Status FULL:Full Resuscitation MAR Reviewed: Yes Vital Signs & Weight: Vital Signs (12 hours) Temp Pulse Pulse Pulse Resp BP BP 06/03/17 10:30 57 L 62 116/65 06/03/17 08:00 97.8 F 75 20 06/03/17 04:00 98.2 F 85 24 H 126/58 L 06/03/17 03:28 06/02/17 23:45 99.0 F 90 22 H BP BP Pulse Ox 06/03/17 10:30 126/59 L 06/03/17 08:00 165/74 H 93 L 06/03/17 04:00 96 06/03/17 03:28 93 L 06/02/17 23:45 136/62 93 L Weight Weight 229 lb 3 oz I&O: 06/02/17 06/03/17 06/04/17 06:59 06:59 06:59 Intake Total 462 Output Total 800 200 Balance -338 -200 Result Diagrams: 06/03/17 04:56 06/03/17 04:56 Phys Exam - Physical Examination HEENT: PERRLA, moist MMs Neck: no JVD, supple Respiratory: no wheezing, no rales Cardiovascular: RRR, no significant murmur Gastrointestinal: soft, non-tender, positive bowel sounds Musculoskeletal: no edema, pulses present Neurological: non-focal, moves all 4 limbs Psychiatric: A&O x 3 Dx/Plan (1) Demand ischemia of myocardium Code(s): I24.8 - OTHER FORMS OF ACUTE ISCHEMIC HEART DISEASE Status: Acute (2) Physical deconditioning Code(s): R53.81 - OTHER MALAISE Status: Acute (3) Acute bronchitis Code(s): J20.9 - ACUTE BRONCHITIS, UNSPECIFIED Status: Acute Qualifiers: Bronchitis organism: unspecified organism Qualified Code(s): J20.9 - Acute bronchitis, unspecified (4) CAD (coronary artery disease) Code(s): I25.10 - ATHSCL HEART DISEASE OF [place] CORONARY ARTERY W/O ANG PCTRS Status: Chronic Qualifiers: Coronary Disease-Associated Artery/Lesion type: [place] artery [place] vs. transplanted heart: [place] heart Associated angina: without angina Qualified Code(s): I25.10 - Atherosclerotic heart disease of [place] coronary artery without angina pectoris Comment: chronic and stable (5) DM type 2 (diabetes mellitus, type 2) Status: Chronic Qualifiers: Diabetes mellitus complication status: with unspecified complications Diabetes mellitus long term care phlebotomist insulin use: with fci use Qualified Code(s) : E11.8 - Type 2 diabetes mellitus with unspecified complications; Z79.4 - terminal block assembler (current) use of insulin; Z79.4 - terminal block assembler (current) use of insulin; Z79.4 - prison (current) use of insulin; Z79.4 - terminal block assembler (current) use of insulin (6) Dyslipidemia Code(s): E78.5 - HYPERLIPIDEMIA, UNSPECIFIED Status: Chronic (7) HTN (hypertension) Code(s): I10 - ESSENTIAL (PRIMARY) HYPERTENSION Status: Chronic Qualifiers: Hypertension type: essential hypertension Qualified Code(s): I10 - Essential (primary) hypertension (8) Paroxysmal a-fib Code(s): I48.0 - PAROXYSMAL ATRIAL FIBRILLATION Status: Chronic Comment: on eliquis and multaq - Plan hemostable -: may dc to inpt rehab if accepted anytime -: afib is rate controlled, no other arrythmias seen on telemetry * . Review of Systems - Medications/Allergies Allergies/Adverse Reactions: Allergies Allergy/AdvReac Type Severity Reaction Status Date / Time Penicillins Allergy Intermediate Verified 05/11/17 21:57 lactose Allergy Verified 05/11/17 21:57 Medications: Current Medications Acetaminophen (Tylenol) 650 mg PO Q4H PRN PRN Reason: Headache/Fever or Pain Last Admin: 06/03/17 08:18 Dose: 650 mg Apixaban (Eliquis) 5 mg PO BID [facility] Last Admin: 06/03/17 08:19 Dose: 5 mg Aspirin (Aspirin Chewable) 81 mg PO DAILY [facility] Last Admin: 06/03/17 08:19 Dose: 81 mg Docusate Sodium (Colace) 100 mg PO BID [facility] Last Admin: 06/03/17 08:19 Dose: 100 mg [facility] Last Admin: 06/03/17 08:19 Dose: 400 mg Famotidine (Pepcid) 20 mg PO BID [facility] Last Admin: 06/03/17 08:19 Dose: 20 mg Guaifenesin/Dextromethorphan (Robitussin Dm) 15 ml PO Q4H PRN PRN Reason: Cough Insulin Detemir 20 units/ (Miscellaneous Medication) 0.2 mls @ 0 mls/hr SC QAM [facility] Metoprolol Succinate (Toprol Xl) 25 mg PO DAILY [facility] Last Admin: 06/03/17 08:19 Dose: 25 mg Ondansetron HCl (Zofran) 4 mg SLOW IVP Q4H PRN PRN Reason: Nausea/Vomiting Last Admin: 06/02/17 18:44 Dose: 4 mg
[2017-06-03] MEDS: Insulin Detemir 100 UNITS/ML 20 UNITS in Pre-Filled Syringe 1 EACH SC SCH (13:23)
[2017-06-03] MEDS: Ondansetron HCl/PF 4 MG/2 ML Vial SLOW IVP PRN (23:09)
[2017-06-03] MEDS ORDERED: Benzonatate 100 MG CAP PO PRN (23:44)
[2017-06-04] MEDS: Acetaminophen 325 MG TAB PO PRN ×2 (04:59→09:47)
[2017-06-04 08:03] VITALS: TEMP 97.6
[2017-06-04] MEDS: Docusate 100 MG CAP PO SCH (08:23)
[2017-06-04] MEDS: Dronedarone HCl 400 MG TAB PO SCH (08:23)
[2017-06-04] MEDS: Famotidine 20 MG TAB PO SCH (08:23)
[2017-06-04] MEDS: Apixaban 5 MG TAB PO SCH (08:23)
[2017-06-04] MEDS: Insulin Detemir 100 UNITS/ML 20 UNITS in Pre-Filled Syringe 1 EACH SC SCH (08:24)
[2017-06-04] MEDS: Ondansetron HCl/PF 4 MG/2 ML Vial SLOW IVP PRN (09:47)
--- NOTE | 2017-06-04 11:29 | PDOC.PN ---
- Subjective Encounter Start Date: 06/04/17 Encounter Start Time: 08:20 Subjective: feels better -: this am is amb to restroom and back in the room -: no sob - Objective Resuscitation Status: Resuscitation Status FULL:Full Resuscitation MAR Reviewed: Yes Vital Signs & Weight: Vital Signs (12 hours) Temp Pulse Resp BP Pulse Ox 06/04/17 07:50 97.6 F 62 18 06/04/17 07:33 97.6 F 62 18 157/63 H 95 06/04/17 05:25 59 L 20 89 L 06/04/17 04:56 98.1 F 59 L 16 132/78 98 06/04/17 02:44 96 06/03/17 23:30 152/59 H Weight Weight 229 lb 3 oz I&O: 06/03/17 06/04/17 06/05/17 06:59 06:59 06:59 Intake Total 462 1890 480 Output Total 800 200 200 Balance -338 1690 280 Result Diagrams: 06/03/17 04:56 06/03/17 04:56 Additional Labs: Accuchecks 06/04/17 08:20 POC Glucose 128 H Phys Exam - Physical Examination HEENT: PERRLA, moist MMs Neck: no JVD, supple Respiratory: no wheezing, no rales rhonchi+ Cardiovascular: RRR, no significant murmur Gastrointestinal: soft, non-tender, positive bowel sounds Musculoskeletal: no edema, pulses present Neurological: non-focal, moves all 4 limbs Psychiatric: A&O x 3 Dx/Plan (1) Demand ischemia of myocardium Code(s): I24.8 - OTHER FORMS OF ACUTE ISCHEMIC HEART DISEASE Status: Resolved (2) Physical deconditioning Code(s): R53.81 - OTHER MALAISE Status: Acute (3) Acute bronchitis Code(s): J20.9 - ACUTE BRONCHITIS, UNSPECIFIED Status: Acute Qualifiers: Bronchitis organism: unspecified organism Qualified Code(s): J20.9 - Acute bronchitis, unspecified Comment: resolving (4) CAD (coronary artery disease) Code(s): I25.10 - ATHSCL HEART DISEASE OF [place] CORONARY ARTERY W/O ANG PCTRS Status: Chronic Qualifiers: Coronary Disease-Associated Artery/Lesion type: [place] artery [place] vs. transplanted heart: [place] heart Associated angina: without angina Qualified Code(s): I25.10 - Atherosclerotic heart disease of [place] coronary artery without angina pectoris Comment: chronic and stable (5) DM type 2 (diabetes mellitus, type 2) Status: Chronic Qualifiers: Diabetes mellitus complication status: with unspecified complications Diabetes mellitus long term care pharmacist insulin use: with long term care pharmacist use Qualified Code(s) : E11.8 - Type 2 diabetes mellitus with unspecified complications; Z79.4 - residential (current) use of insulin; Z79.4 - residential (current) use of insulin; Z79.4 - residential (current) use of insulin; Z79.4 - residential (current) use of insulin (6) Dyslipidemia Code(s): E78.5 - HYPERLIPIDEMIA, UNSPECIFIED Status: Chronic (7) HTN (hypertension) Code(s): I10 - ESSENTIAL (PRIMARY) HYPERTENSION Status: Chronic Qualifiers: Hypertension type: essential hypertension Qualified Code(s): I10 - Essential (primary) hypertension (8) Paroxysmal a-fib Code(s): I48.0 - PAROXYSMAL ATRIAL FIBRILLATION Status: Chronic Comment: on reagan and vivian - Plan hemostable -: may dc to inpt rehab anytime -: demetrice avilad at rehab -: d/w daughter and patient at bedside * .
[2017-06-04 14:28] VITALS: BP 139/65
--- NOTE | 2017-06-05 14:11 | DIS ---
DISCHARGE DISPOSITION: To home. PRIMARY DISCHARGE DIAGNOSES: 1. Acute bronchitis with recent viral illness. 2. Deconditioning. 3. Demand ischemia. SECONDARY DISCHARGE DIAGNOSES: Coronary artery disease, diabetes mellitus type 2, dyslipidemia, hype rtension, paroxysmal atrial fibrillation. PROCEDURES DONE DURING HOSPITALIZATION: Chest x-ray showed chronic interstitial lung changes. White count of 2.9, H&H 11 and 35, platelet count 132 with 66% neutrophils. Troponin I was indetermi cassidy with peaking up to 0.08, CK-MB 1.7. BNP 431, BUN 15, creatinine 0.7. DISCHARGE MEDICATIONS: Eliquis 5 mg twice daily, aspirin 81 mg daily, Symbicort inhaler 2 puffs twic e daily, Multaq 400 mg b.i.d., Pepcid 20 mg twice daily, fish oil 1 capsule twice daily, Prozac 40 mg daily, 70/30 insulin 20 units q.a.m. and 28 units q.p.m., metoprolol 25 mg daily, simvastatin 20 mg p.o. q.p.m. ALLERGIES: PENICILLIN and LACTOSE. DISCHARGE PLAN: The patient is being discharged to inpatient rehab. BRIEF COURSE DURING HOSPITALIZATION: The patient initially came in with complaints of chest pain and deconditioning. She had not been eating well, was feeling weak. She had recent history of viral fe marisol. Also, systolic blood pressures on Thursday were 88/40. In view of above-mentioned factors, she w as placed under observation. The patient had deconditioning and was exhausted from the recent viral illness. She still has some bronchitis associated with that. Otherwise, she remained hemodynamicall y stable. A troponin was trended and has remained stable. She is chest pain free. Due to deconditi oning, she is being discharged to inpatient rehab for further recuperation prior to going home. Karol sánchez see a face to face documentation on [place] for the day of discharge. A total of 35 minutes was spent on discharge plan.
== END 2017-06-04 15:51 ==
LOC: ERS 10:46 → 2SW 13:14
PROVIDERS: ADMIT Internal Medicine; ATTEND Internal Medicine
DX: J20.9 Acute bronchitis, unspecified (principal); B34.9 Viral infection, unspecified; R53.81 Other malaise; I24.8 Other forms of acute ischemic heart disease; I25.10 Atherosclerotic heart disease of native coronary artery without angina pectoris; E78.5 Hyperlipidemia, unspecified; I48.0 Paroxysmal atrial fibrillation; I10 Essential (primary) hypertension; R07.9 Chest pain, unspecified; E11.42 Type 2 diabetes mellitus with diabetic polyneuropathy; F32.9 Major depressive disorder, single episode, unspecified; Z79.4 Long term (current) use of insulin; Z79.82 Long term (current) use of aspirin; Z79.01 Long term (current) use of anticoagulants; Z79.899 Other long term (current) drug therapy; Z88.0 Allergy status to penicillin; Z91.011 Allergy to milk products; Z95.1 Presence of aortocoronary bypass graft; Z90.710 Acquired absence of both cervix and uterus; Z90.89 Acquired absence of other organs; Z87.891 Personal history of nicotine dependence
CPT/HCPCS: 71045; 80048; 80053; 82550; 82553; 82962; 83880; 84484 ×2; 85025 ×2; 93005; 94640; 96374; 96376 ×2; 97116 ×2; 97139; 99285; G0378; G8978; G8979; G8987; G8988; 36415; 36416; J1815; J2405; J7620

== ENCOUNTER 2018-01-03 10:54 | Emergency (ER) | payer MEDICARE, MEDICAID ==
[2018-01-03] MEDS ORDERED: Metoclopramide HCl 10 MG/2 ML VIAL ONE ×2 (11:15→13:14)
[2018-01-03] MEDS ORDERED: Ketorolac Tromethamine 30 MG/ML VIAL ONE (11:15)
[2018-01-03] MEDS ORDERED: diphenhydrAMINE 50 MG/ML VIAL ONE ×2 (11:15→13:14)
[2018-01-03] MEDS ORDERED: hydrALAZINE 20 MG/ML VIAL ONE (11:21)
[2018-01-03 11:33] LABS: #Eosinphils 0.1 thou/uL (0.0-0.7); #Lymphocytes 0.9 thou/uL (1.20-3.40); #Monocytes 0.5 thou/uL (0.11-0.59); #Neutrophils 5.6 thou/uL (1.40-6.50); %Basophils 0.3 % (0.0-1.0); %Eosinophils 1.8 % (0.0-10.0); %Lymphocytes 12.4 % (21.0-51.0); %Neutrophils 78.4 % (42.0-75.0); Hemoglobin 14.1 g/dL (12.0-16.0); Mean Corpuscular HGB CONC 34.1 g/dL (32.0-36.0); Mean Corpuscular Hemoglobin 30.4 pg (27.0-31.0); Mean Corpuscular Volume 89.1 fL (78.0-98.0); Mean Platelet Volume 6.9 fL (7.4-10.4); Platelet Count 216 thou/uL (130-400); RBC Distribution Width 15.7 % (11.5-14.5); Red Blood Cell (RBC) Count 4.64 mill/uL (4.20-5.40); White Blood Cell (WBC) Count 7.2 thou/uL (4.8-10.8)
[2018-01-03 11:53] LABS: ALT (SGPT) 17 U/L (8-55); AST (SGOT) 20 U/L (5-34); Alkaline Phosphatase 83 U/L (40-150); Anion Gap 14 mmol/L (10-20); BUN (Urea Nitrogen) 18 mg/dL (9.8-20.1); Bilirubin, Total 0.7 mg/dL (0.2-1.2); CRP (Inflammatory) 3.93 mg/dL (= or < 0.5); Calc. Creatinine Clearance 0 mL/min (70-130); Calcium 9.8 mg/dL (7.8-10.44); Carbon Dioxide 27 mmol/L (23-31); Chloride 105 mmol/L (98-107); Estimated GFR-MDRD 48; Globulin 3.7 g/dL (2.4-3.5); Glucose 98 mg/dL (83-110); Potassium 5.4 mmol/L (3.5-5.1); Protein, Total 7.7 g/dL (6.0-8.3); Sodium 141 mmol/L (136-145)
--- NOTE | 2018-01-03 12:00 | CT ---
CT HEAD WITOUT CONTRAST: Multiple axial tomograms were obtained through the head without IV enhancement. INDICATION: Headache. COMPARISON: CT head 09/26/16. FINDINGS: Low attenuation in the brainstem at the level of the shannon is stable from the prior study. Ventricles have normal size and position. There is mild cortical volume loss. There is no evidence of intracr anial hemorrhage or mass. No evidence of acute infarct. Sinuses and mastoids are well aerated and c lear. IMPRESSION: No acute abnormality identified. POS: [facility]
== END 2018-01-03 15:06 | disposition home or self-care (01) ==
LOC: ERS 10:54
DX: R51 Headache (principal); R11.0 Nausea; E78.5 Hyperlipidemia, unspecified; M19.90 Unspecified osteoarthritis, unspecified site; J45.909 Unspecified asthma, uncomplicated; I48.91 Unspecified atrial fibrillation; E11.40 Type 2 diabetes mellitus with diabetic neuropathy, unspecified; I11.0 Hypertensive heart disease with heart failure; I50.9 Heart failure, unspecified; F41.9 Anxiety disorder, unspecified; Z86.73 Personal history of transient ischemic attack (TIA), and cerebral infarction without residual deficits; Z79.4 Long term (current) use of insulin; Z87.891 Personal history of nicotine dependence; Z79.899 Other long term (current) drug therapy; Z79.82 Long term (current) use of aspirin
CPT/HCPCS: 36415; 70450; 80053; 85025; 85652; 86140; 96365; 96375; J0360; J1200; J1885; J2765

== ENCOUNTER 2018-06-25 20:26 | Inpatient (IN) | payer MEDICARE, MEDICAID ==
--- NOTE | 2018-06-25 21:24 | RAD ---
PORTABLE CHEST ONE VIEW: 06/25/18 at 8:05 p.m. HISTORY: Shortness of breath. FINDINGS/IMPRESSION: Comparison made with exam of 06/01/17. There are changes of median sternotomy. The heart size is borderline. Mild pulmonary vascular congest ion is seen with small pleural effusions. No pneumothoraces or lobar consolidation are seen. POS: [facility]
[2018-06-25] MEDS ORDERED: Furosemide 40 MG/4 ML VIAL ONE (21:49)
[2018-06-25 22:40] LABS: #Basophils 0.1 thou/uL (0.0-0.2); #Eosinphils 0.1 thou/uL (0.0-0.7); #Lymphocytes 0.8 thou/uL (1.20-3.40); #Monocytes 0.7 thou/uL (0.11-0.59); #Neutrophils 4.8 thou/uL (1.40-6.50); %Basophils 0.8 % (0.0-1.0); %Eosinophils 1.9 % (0.0-10.0); %Lymphocytes 12.9 % (21.0-51.0); %Monocytes 10.2 % (0.0-10.0); %Neutrophils 74.2 % (42.0-75.0); Hemoglobin 9.8 g/dL (12.0-16.0); Mean Corpuscular HGB CONC 30.1 g/dL (32.0-36.0); Mean Corpuscular Hemoglobin 26.1 pg (27.0-31.0); Mean Corpuscular Volume 86.8 fL (78.0-98.0); Mean Platelet Volume 8.3 fL (7.4-10.4); Platelet Count 188 thou/uL (130-400); RBC Distribution Width 18.2 % (11.5-14.5); Red Blood Cell (RBC) Count 3.76 mill/uL (4.20-5.40); White Blood Cell (WBC) Count 6.5 thou/uL (4.8-10.8)
[2018-06-25] MEDS ORDERED: Nitroglycerin 2% Ointment 1 INCH/1 GM Packet ONE (23:25)
[2018-06-25 23:28] LABS: ALT (SGPT) 27 U/L (8-55); AST (SGOT) 24 U/L (5-34); Albumin 3.7 g/dL (3.4-4.8); Alkaline Phosphatase 85 U/L (40-150); Anion Gap 12 mmol/L (10-20); BUN (Urea Nitrogen) 25 mg/dL (9.8-20.1); Bilirubin, Total 0.8 mg/dL (0.2-1.2); Calc. Creatinine Clearance 0 mL/min (70-130); Carbon Dioxide 26 mmol/L (23-31); Chloride 107 mmol/L (98-107); Estimated GFR-MDRD 44; Globulin 2.9 g/dL (2.4-3.5); Glucose 100 mg/dL (83-110); Potassium 4.8 mmol/L (3.5-5.1); Protein, Total 6.6 g/dL (6.0-8.3); Sodium 140 mmol/L (136-145)
[2018-06-26] MEDS ORDERED: Ondansetron PF 4 MG/2 ML Vial IVP PRN ×2 (01:21→10:03)
[2018-06-26] MEDS ORDERED: Acetaminophen 325 MG TAB PO PRN ×2 (01:21→10:03)
[2018-06-26] MEDS ORDERED: Ondansetron ODT 4 MG TAB SL PRN (01:21)
[2018-06-26] MEDS ORDERED: Ondansetron ODT 4 MG TAB PO PRN (10:03)
[2018-06-26] MEDS ORDERED: HumaLOG 300 UNITS/3 ML VIAL SC PRN ×2 (10:03)
[2018-06-26] MEDS ORDERED: hydrALAZINE 20 MG/ML VIAL SLOW IVP PRN (10:03)
[2018-06-26] MEDS ORDERED: Dextrose 5% in Water 1,000 ML IV PRN (10:03)
[2018-06-26] MEDS ORDERED: Dextrose 50% Abboject 50 ML SYRINGE SLOW IVP PRN (10:03)
[2018-06-26] MEDS ORDERED: HYDROcodone/Acetaminophen 5/325 mg Tablet PO PRN (10:03)
[2018-06-26] MEDS ORDERED: Calcium Carbonate 500 MG ChewTAB PO PRN (10:03)
[2018-06-26] MEDS: PROVENTIL INHALER 6.7 G (200 INHALATIONS) INH SCH ×3 (13:22→23:27)
[2018-06-26] MEDS: Furosemide 40 MG/4 ML VIAL SLOW IVP SCH (14:21)
--- NOTE | 2018-06-26 14:21 | HP ---
PRIMARY CARE PHYSICIAN: DEMETRIO Brito HAND [employer]: Ryan Parisi MD CHIEF COMPLAINT: Shortness of breath. HISTORY OF PRESENT ILLNESS: Ms. Hadley is a very pleasant 73-year-old female, who has a history of coronary artery disease. She has a history of 4-vessel CABG about 5 years ago. Also has hypertension, diabetes, and atrial fibrillation as well as asthma. She says that she has been getting short of breath off and on for some time, but in the last 2 days, it got extremely worse. She says she got to the point, where she could barely walk from the living room and back and get extremely short of breath. She said this is not typical for her. She also says she could not sleep in the last couple of days. When asked if she got short of breath if she were to try to lay flat, she says yes and in fact, she was having to sleep pretty much sitting upright. She also says she could hear her heart beating in her ears and it felt like it was irregular. She also was noting some muscle cramps in both legs as well as increasing swelling in her legs. She told her daughter about her symptoms and her daughter convinced her to come to the emergency room. In the ER, she was evaluated and found to have an elevated BNP. A chest x-ray was done and showed increased pulmonary vascular markings consistent with congestive heart failure and she is being admitted for this. She denies having any chest pain; however. She says that she recently saw Dr. Parisi, a couple of weeks ago. He did an echocardiogram at that time. She said that he told her she had some type of valve that was pressed against her chest wall, but otherwise there had been no significant change. He made a decrease in her dose of isosorbide, but otherwise there were no other changes. REVIEW OF SYSTEMS: All systems were reviewed and are negative except for that mentioned in the history of present illness. PAST MEDICAL HISTORY: Significant for asthma, atrial fibrillation, hypertension, diabetes, coronary artery disease status post bypass, carotid artery disease, peripheral neuropathy and peripheral vascular disease, hyperlipidemia, and depression. PAST SURGICAL HISTORY: She has had a hysterectomy, tonsillectomy, and 4-vessel bypass. She has had surgery for peripheral vascular disease with stents placed in her legs as well as her abdomen and bilateral carotid endarterectomies. ALLERGIES: ALLERGIES ARE TO PENICILLIN, WHICH SHE SAYS CAUSES SOME MEDICINE TO LOCALIZE IN 1 AREA AND GET IT VERY HARD, PAINFUL ABOVE, SOUNDS LIKE A LOCALIZED REACTION. SOCIAL HISTORY: She has 2 living children and 1 is . She is single. She lives with her daughter. She is a former smoker. She quit back in 2007. She started smoking when she was 11 years old and she says at the most, she smoked up to 5 packs of cigarettes a day, but on average about a pack a day and possibly for about 40 years. She denies any alcohol use and with regard to code status, she says she really does not know, but for right now, she is a full code. FAMILY HISTORY: Significant for coronary artery disease in her father. He also had rectal cancer. There is also diabetes in the family as well. MEDICATIONS: Her medications include; 1. Albuterol inhaler 2 puffs q.6 as needed. 2. Eliquis 5 mg twice daily. 3. Aspirin 81 mg daily. 4. Symbicort 160/4.5 one puff twice a day. 5. Multaq 400 mg twice daily. 6. Fish oil 1 capsule twice a day. 7. Fluoxetine 40 mg daily. 8. Insulin 70/30 of 20 units in the morning and in the evening. 9. Isosorbide 15 mg daily. 10. Metoprolol 25 mg daily. 11. Montelukast 10 mg daily. 12. Pregabalin 300 mg at bedtime. 13. Simvastatin 20 mg q.p.m. PHYSICAL EXAMINATION: GENERAL: She is alert and oriented. She is in no acute distress; however, she is sitting up almost upright and says that she is unable to lay back flat. She is well developed and well nourished. VITAL SIGNS: Her blood pressure is 134/74, heart rate is 51, respiratory rate is 14, and temperature is 97.7. HEENT: Pupils are equal, round, and reactive. Extraocular muscles are intact. Her sclerae anicteric. Throat, there is no erythema and no exudates. NECK: No adenopathy. She did have bilateral carotid bruits. LUNGS: She has some scattered rales, but no rhonchi. CARDIOVASCULAR: She had a normal S1 and S2. She had a grade 2/6 systolic murmur. ABDOMEN: Obese. It is soft. She had some mild mid to left upper quadrant tenderness. There is no rebound. No guarding. No organomegaly. EXTREMITIES: On her extremities, she has 1+ edema and some mild erythema. NEUROLOGIC: Grossly intact. SKIN AND INTEGUMENT: She had some mild erythema on her lower extremities, but there were no skin lesions. No appreciable rashes. LABORATORY RESULTS: Her white blood cell count 6.5, hemoglobin 9.8, hematocrit is 32.6, and platelet count is 188. Sodium is 140, potassium 4.8, chloride is 107, CO2 is 26, BUN of 25, creatinine 1.2, and glucose is 109. Natriuretic peptide was 775 and troponin is less than 0.010. Chest x-ray, she had cardiomegaly as well as increased pulmonary vascular markings and what appeared to be bilateral pleural effusions with the right greater than the left. Her EKG was a left bundle-branch block. ASSESSMENT AND PLAN: This is a pleasant 73-year-old female, who presents with shortness of breath with hypoxemia, which is new onset in the setting of having history of coronary artery disease. She had a chest x-ray radiographic evidence of decompensated heart failure. 1. For new onset heart failure, we will need to get the echo results from Dr. Parisi's office. She will be started on Lasix IV. Continue her home medications. Consider adding an angiotensin-converting enzyme inhibitor if her renal function will tolerate and we will consult Cardiology for further recommendations. There are no obvious precipitating factors at this time. 2. Coronary artery disease. This appears to be clinically stable. Her troponins were all negative. She has had 3 sets. Once again, we will start her usual home medications and further recommendations from Cardiology. 3. Diabetes mellitus. Continue her home medications as well as a sliding scale insulin. 4. Atrial fibrillation. Her heart rate appears to be controlled and she is on Eliquis for stroke prevention. Further recommendations are to follow. Job ID: [id number]
[2018-06-26] MEDS: Dronedarone HCl 400 MG TAB PO SCH (17:38)
[2018-06-26] MEDS: Mometasone/Formoterol 120 PUFF INHALER INH SCH (18:52)
[2018-06-26] MEDS: Pregabalin 75 MG CAP PO SCH (20:09)
[2018-06-26] MEDS: Atorvastatin Calcium 20 MG TAB PO SCH (20:10)
[2018-06-26] MEDS: Apixaban 5 MG TAB PO SCH (20:10)
[2018-06-26] MEDS: HumuLIN 70/30 (300 UNITS/3 ML VIAL) SC SCH (20:11)
[2018-06-26] MEDS: Isosorbide Dinitrate 5 MG TAB PO SCH (20:12)
[2018-06-27 04:22] VITALS: BMI 34.5
[2018-06-27] MEDS: Furosemide 40 MG/4 ML VIAL SLOW IVP SCH ×3 (05:32→14:48)
[2018-06-27 06:11] LABS: #Eosinphils 0.2 thou/uL (0.0-0.7); #Lymphocytes 0.7 thou/uL (1.20-3.40); #Monocytes 0.7 thou/uL (0.11-0.59); #Neutrophils 4.8 thou/uL (1.40-6.50); %Basophils 0.6 % (0.0-1.0); %Eosinophils 2.7 % (0.0-10.0); %Lymphocytes 10.2 % (21.0-51.0); %Monocytes 10.2 % (0.0-10.0); %Neutrophils 76.3 % (42.0-75.0); Hemoglobin 9.8 g/dL (12.0-16.0); Mean Corpuscular HGB CONC 30.9 g/dL (32.0-36.0); Mean Corpuscular Hemoglobin 26.7 pg (27.0-31.0); Mean Corpuscular Volume 86.6 fL (78.0-98.0); Platelet Count 211 thou/uL (130-400); RBC Distribution Width 17.8 % (11.5-14.5); Red Blood Cell (RBC) Count 3.67 mill/uL (4.20-5.40); White Blood Cell (WBC) Count 6.4 thou/uL (4.8-10.8)
[2018-06-27 06:31] LABS: Anion Gap 15 mmol/L (10-20); BUN (Urea Nitrogen) 24 mg/dL (9.8-20.1); Calc. Creatinine Clearance 72 mL/min (70-130); Calcium 8.9 mg/dL (7.8-10.44); Carbon Dioxide 24 mmol/L (23-31); Chloride 102 mmol/L (98-107); Estimated GFR-MDRD 48; Glucose 78 mg/dL (83-110); Potassium 4.3 mmol/L (3.5-5.1); Sodium 137 mmol/L (136-145)
[2018-06-27] MEDS: Fish Oil 1,000 MG CAP PO SCH ×2 (08:52→22:53)
[2018-06-27] MEDS: HumuLIN 70/30 (300 UNITS/3 ML VIAL) SC SCH ×2 (08:52→22:54)
[2018-06-27] MEDS: Isosorbide Dinitrate 5 MG TAB PO SCH (08:52)
[2018-06-27] MEDS: FLUoxetine HCl 20 MG CAP PO SCH (08:52)
[2018-06-27] MEDS: Dronedarone HCl 400 MG TAB PO SCH ×2 (08:53→17:17)
[2018-06-27] MEDS: Apixaban 5 MG TAB PO SCH ×2 (08:53→22:59)
[2018-06-27] MEDS: Montelukast Sodium 10 mg Tablet PO SCH (08:53)
[2018-06-27] MEDS: Aspirin Chewable 81 MG TAB PO SCH (08:53)
[2018-06-27] MEDS: PROVENTIL INHALER 6.7 G (200 INHALATIONS) INH SCH ×3 (08:55→18:32)
[2018-06-27] MEDS: Mometasone/Formoterol 120 PUFF INHALER INH SCH ×2 (08:56→18:31)
[2018-06-27] MEDS ORDERED: Metoprolol Tartrate 25 MG TAB PO SCH (09:00)
--- NOTE | 2018-06-27 09:35 | PDOC.PN ---
- Subjective Encounter Start Date: 06/27/18 Encounter Start Time: 09:33 Ms. Hadley was seen today in follow-up of CHF exacerbation. She is breathing better today. She notes less leg edema - Objective Resuscitation Status - Order Detail: 06/26/18 09:57 Resuscitation Status Routine Resuscitation Status: FULL: Full Resuscitation MAR Reviewed: Yes Vital Signs & Weight: Vital Signs (12 hours) Temp Pulse Resp BP Pulse Ox 06/27/18 08:56 52 L 12 97 06/27/18 08:55 52 L 12 06/27/18 07:44 97.5 F L 51 L 18 114/68 96 06/27/18 04:00 98.5 F 57 L 16 106/59 L 94 L 06/27/18 00:00 97.9 F 56 L 16 122/86 93 L Weight Weight 218 lb I&O: 06/26/18 06/27/18 06/28/18 06:59 06:59 06:59 Intake Total 460 1640 Output Total 400 3825 Balance 60 -2185 Result Diagrams: 06/27/18 05:52 06/27/18 05:52 Additional Labs: Accuchecks 06/27/18 06/26/18 06/26/18 05:31 20:00 16:37 POC Glucose 92 225 H 112 H 06/26/18 10:44 POC Glucose 119 H Phys Exam - Physical Examination HEENT: PERRLA Respiratory: no wheezing + rales at both bases Cardiovascular: RRR, no significant murmur, no rub Gastrointestinal: soft, non-tender, no distention, positive bowel sounds Musculoskeletal: pulses present, edema present trace pedal edema Dx/Plan (1) CHF exacerbation Code(s): I50.9 - HEART FAILURE, UNSPECIFIED Status: Acute (2) Atrial fibrillation Code(s): I48.91 - UNSPECIFIED ATRIAL FIBRILLATION Status: Chronic (3) DM type 2 (diabetes mellitus, type 2) Status: Chronic Qualifiers: (4) Dyslipidemia Code(s): E78.5 - HYPERLIPIDEMIA, UNSPECIFIED Status: Chronic (5) HTN (hypertension) Code(s): I10 - ESSENTIAL (PRIMARY) HYPERTENSION Status: Chronic Qualifiers: - Plan * Acute CHF exacerbation- improved with diurese * Continue IV Lasix * AFIB- her heart rate has been stable, mainly in the 50's * HTN- blood pressure is controlled * DM- blood glucose is stable.
--- NOTE | 2018-06-27 15:37 | CON ---
DATE OF CONSULTATION: PRIMARY CARE DOCTOR: DEMETRIO Brito [facility] [employer] [facility] SPECIALIST: Ryan Parisi MD REASON FOR CARDIOLOGY CONSULT: New onset of CHF. HISTORY OF PRESENT ILLNESS: Ms. Hadley is a 73-year-old female with a significant history of coronary artery disease with CABG x4 in 2011, insulin-dependent diabetes, hypertension, paroxysmal atrial fibrillation, TIA in 2007, and the patient had a bilateral carotid endarterectomy and stent placement in her right femoral as well as her abdomen. The patient presents to the Emergency Department for worsening of shortness of breath for a few days. The patient is with O2 saturation of 77 at home. After the patient received the Lasix in the ER, the patient's breathing condition has improved. At this moment, she is on room air with O2 saturation 90% to 92%. However, at this moment, she is complaining of dizziness due to hypotensive, blood pressure 101/42. She denies any dyspnea or syncopal episode, fluttering or palpitation in her chest or chest pain or discomfort in her chest. No nausea, vomiting, numbness, or tingling to the left upper extremity or posterior to the neck. On May 28, she followed up with Ms. Chisholm, who is Dr. Parisi's PA for hypotension and the patient's Imdur was cut down to half tablet daily and she followed up with Dr. Parisi's within the 2 weeks. Her blood pressure was stable ways with Imdur 15 mg once a day. The patient underwent CABG x4 in 2010 and also the patient has underwent cardiac catheterization in 2014 shows patent graft and with heavily calcified LAD. At that time, which is very difficult to intervene and continued medical treatment. The patient had an echocardiogram done in June 2018; however, at this moment, unable to retrieve the patient's echo results at this moment. However, in November 2017, the echocardiogram shows EF of 50% to 55%, severe left atrial enlargement, moderate to severe mitral valve stenosis, and severely elevated RVSP 68.22 mmHg and grade 3 diastolic dysfunction with elevated left atrial pressure. PAST MEDICAL HISTORY: 1. Coronary artery disease. 2. Insulin-dependent diabetes. 3. Hypertension. 4. Paroxysmal atrial fibrillation. 5. Hyperlipidemia. 6. TIA in 2007. 7. Obstructive sleep apnea. 8. Peripheral artery disease. PAST SURGICAL HISTORY: The patient's surgical history; 1. Partial hysterectomy. 2. CABG x4 in 2010. 3. Cervical surgery. 4. Bilateral carotid endarterectomy by Dr. Damon in 2012. 5. Stent placement in the right femoral and abdomen by Dr. Damon. 6. Tonsillectomy. FAMILY HISTORY: The patient's father due to the heart-related problems. There are no history for her mother's side since the patient's mother when she was young. The patient had 1 brother who has mesothelioma. The patient has 2 daughters, 1 of daughter has a myocardial infarction at the age of 41, but she also has a history of diabetes. SOCIAL HISTORY: She is a . She is living with her daughter. Also she has a 3 children, 1 daughter living well. Another daughter has history of myocardial infarction and diabetes. Her son has some health issue. She is an ex-smoker, she quit in 2007. She used to smoke 5 pack a day. She is a social drinker. She drink around the holiday time. She denies any drug abuse. She drinks 4 cup of coffee a day and a 4 bottle of water a day. She has sedative lifestyle at this moment. ALLERGIES: SHE IS ALLERGIC TO MILK, COLYTE, AND PENICILLIN. MEDICATIONS: The patient home medication; 1. Simvastatin 20 mg once a day. 2. Fish oil 1 tablet twice a day. 3. Aspirin 81 mg once a day. 4. Vitamin D3 of 2000 units once a day. 5. NovoLog 70/30 as a protocol. 6. Lyrica 300 mg once a day. 7. Singulair once a day. 8. Fish oil 1000 mg capsule once a day. 9. Metoprolol succinate 25 mg once a day. 10. Multaq 400 mg twice a day. 11. Flonase 1 spray each nare every day. 12. CoQ10 of 100 mg once a day. 13. Fluoxetine 40 mg once a day. 14. Eliquis 5 mg twice a day. 15. Symbicort. 16. Isosorbide mononitrate 30 mg half tablet once a day. 17. Norvasc 5 mg once a day. REVIEW OF SYSTEMS: A 12-point review of systems negative unless this mentioned in the HPI. PHYSICAL EXAMINATION: VITAL SIGNS: Blood pressure 101/42, temperature 97.6, pulse is 56 and sinus rhythm, respiratory rate 18, and O2 saturation 90% to 92% with room air. GENERAL: The patient is alert and oriented x4, not in acute distress. She is eating well. HEAD: Normocephalic and atraumatic. EYES: Extraocular muscle movement intact. ENT AND MOUTH: Oral and nasal mucosa moist without lesion. NECK: No JVD. Normal range of motion. RESPIRATORY: Clear to auscultate bilaterally, but very diminished at the bases. CARDIOVASCULAR: Regular rate and rhythm. Normal S1 and S2. There is no S3 or S4. No significant murmur, heaves, or thrill noted. Carotid pulses are present, but significant bruit bilaterally more to the right side. 2+ pulses in bilateral upper and lower extremities. They have significant edema of the lower extremities with a very tight skin to knee down with discoloration. ABDOMEN: Soft and nontender. No mass to palpate. Bowel sounds are present. SKIN: Warm and dry. No lesion, rash, or ischemia noted, except discoloration to the bilateral lower extremities. MUSCULOSKELETAL: The patient able to move all extremities without difficulty. She does not use a walker or cane at home. She denied claudication at this moment. NEUROLOGIC: The patient is alert and oriented x4, nonfocal. PSYCHIATRIC: The patient's mood is appropriate at this moment. LABORATORY DATA: WBC 6.4, hemoglobin 9.8, hematocrit 31.7, and platelets 211. Sodium 137, potassium 4.3, BUN 24, creatinine 1.11, glucose 142, AST 24, and ALT 27. Troponin is negative. BNP is 775.9. Chest x-ray show mild pulmonary vascular congestion with small pleural effusion. ASSESSMENT AND PLAN: 1. Acute on diastolic acute on chronic diastolic heart failure. The patient's condition is stable at this moment with Lasix 40 mg IV push twice a day. We would like to continue those medications at this moment for couple days since she still have a tightness skin to the bilateral lower extremities, although the patient is able to tolerate on room air. She is on metoprolol; however, I would like to go ahead to titrate to the succinate. She is not on angiotensin-converting enzyme inhibitor or angiotensin receptor blockers and due to history of chronic kidney disease and also hypotensive and would like to continue, monitor at this moment. 2. Hypotension. The patient is complaining of dizziness due to hypotensive. We would like to go ahead to isosorbide, which is going to be stopped in hold for moment till the patient's vital signs are more stable. 3. Paroxysmal atrial fibrillation. The patient's EKG has showed the patient is sinus tariq to sinus rhythm. She is on Eliquis 5 mg twice a day, aspirin 81 mg once a day, and Multaq 400 mg once a day and also metoprolol succinate 25 mg once a day. We would like to continue to monitor. 4. Coronary artery disease with a history of coronary artery bypass grafting. The patient's condition is stable at this moment. She is on a beta carmelita, statin, and aspirin at this moment. 5. Evwveiep-uk-jigvwl mitral valve stenosis. We would like to continue metoprolol succinate 25 mg once a day for now, although the patient's heart rates have been in 50s to low 60s due to mitral valve stenosis. The patient might be a good candidate for mitral valve balloon. We would like to defer to Dr. Parisi's. 6. Hyperlipidemia. The patient is on statin. 7. Insulin-dependent diabetes, which is managed by primary care doctor. Thank you very much for allowing the Cardiology Service to participate in the care of this patient. We will follow along the patient's care team and make further recommendations as appropriate. Job ID: [id number]
[2018-06-27] MEDS: Pregabalin 75 MG CAP PO SCH (22:51)
[2018-06-27] MEDS: Atorvastatin Calcium 20 MG TAB PO SCH (22:53)
[2018-06-27] MEDS: Triple Antibiotic Ointment 30 GM TUBE TOP SCH (22:54)
[2018-06-28] MEDS: PROVENTIL INHALER 6.7 G (200 INHALATIONS) INH SCH ×4 (00:30→18:07)
[2018-06-28] MEDS: HumuLIN 70/30 (300 UNITS/3 ML VIAL) SC SCH ×2 (07:14→21:42)
[2018-06-28] MEDS: Triple Antibiotic Ointment 30 GM TUBE TOP SCH ×2 (07:14→21:43)
[2018-06-28] MEDS: Dronedarone HCl 400 MG TAB PO SCH ×2 (07:14→18:17)
[2018-06-28] MEDS: Apixaban 5 MG TAB PO SCH ×2 (07:14→21:28)
[2018-06-28] MEDS: Fish Oil 1,000 MG CAP PO SCH ×2 (07:15→21:28)
[2018-06-28] MEDS: FLUoxetine HCl 20 MG CAP PO SCH (07:15)
[2018-06-28] MEDS: Aspirin Chewable 81 MG TAB PO SCH (07:15)
[2018-06-28] MEDS: Furosemide 40 MG TAB PO SCH (07:15)
[2018-06-28] MEDS: Montelukast Sodium 10 mg Tablet PO SCH (07:15)
--- NOTE | 2018-06-28 10:01 | CON ---
DATE OF CONSULTATION: 06/27/2018 ADDENDUM: Please refer to the notes dictated by my nurse practitioner, Gemma Hodge. INDICATION FOR CONSULTATION: A 73-year-old female with CHF exacerbation. A 73-year-old female has a history of hypotension with mitral and aortic valve stenosis. She was recently seen in the office and was found to have benriseg-uf-yznrtp mitral valve stenosis with also moderate aortic valve stenosis. Her actual blood pressure within the heart may be higher than what is estimated and by the blood pressures systolically that we are obtaining in the extremities. It could be that she has had worsening now for overall valvular status. She was seen in the office last I believe in January 2018. She may be approaching the time that she needs to have aortic valve replacement either by TAVR and mitral valve balloon angioplasty or mitral valve replacement. Most likely, she will need to undergo a KRISHNA to evaluate this. She has had a previous coronary artery bypass grafting due to her coronary artery disease and most likely may not be a candidate for the minimally invasive mitral valve repair or replacement, but certainly could undergo a TAVR. However, it is possible she could undergo a mitral valve balloon valvuloplasty and depending on how significant her disease has progressed, she may need to have evaluation by the cardiac surgeons for redo surgery for her aortic and mitral valve stenosis. I believe her last cardiac catheterization was in 2014, at which time she was found to have severe multivessel disease. She had evaluation of the coronary arteries at that time as well as the bypass grafts. Please note, from the dictation of my nurse practitioner concerning the description of her cardiac catheterization at that time. At this time, she is feeling better after some diuresis, but I would be somewhat hesitant to over diurese this lady with her aortic valve stenosis. She is already hypotensive. We will continue gentle diuresis and then further evaluation of the patient will be determined by Dr. Parisi when he reviews the patient tomorrow or Thursday, but she may very well need to undergo a transesophageal echocardiogram for further evaluation of the mitral valve as well as the aortic valve and then we will need to have consideration for most likely aortic and mitral valve replacement. I would agree with the remainder of the assessment and plan by the nurse practitioner. PHYSICAL EXAMINATION: GENERAL: Reveals an elderly overweight female. VITAL SIGNS: Her vital signs show blood pressure 105/54, heart rates in the 50s. Unfortunately, she remains in sinus rhythm. She does have a bundle branch block intermittently at times. She has a left bundle branch block. Respiratory rate is about 16. She is afebrile. HEENT: Unremarkable. CHEST: Few basilar rales. CARDIOVASCULAR: Heart sounds somewhat distant. She does have systolic murmur at the apex. I cannot hear any true diastolic murmur at the apex, but she has a systolic murmur at the upper sternal border slightly that occurs at the upper sternal border compatible with her aortic valve stenosis. ABDOMEN: Shows obesity. I cannot palpate any masses or tenderness. EXTREMITIES: Showed 1+ lower extremity edema. Pedal pulses are present. She has a well-healed midline surgical incision after median sternotomy. NEUROLOGIC: She appears to be fully intact. SKIN: Warm and dry. LABORATORY DATA: Please refer to the notes already dictated. IMPRESSION: 1. Congestive heart failure exacerbation, most likely associated with both mitral and aortic valve stenosis with continued gentle diuresis. Most likely, she will need to undergo a transesophageal echocardiogram for further evaluation of her valvular status or she may need to be referred for aortic and mitral valve replacement. 2. History of coronary artery disease and bypass surgery. Refer to those notes. This appears to be stable. She did not have any significant chest pain. She does have some chest discomfort when she becomes short of breath. She was unable to lie down due to shortness of breath and the congestive heart failure exacerbation. For the remainder of her assessment and plan, I would agree with the assessment and plan of the nurse practitioner. We will follow this patient very carefully, and we will consider further management by Dr. Parisi. Job ID: [id number]
--- NOTE | 2018-06-28 10:06 | PRG ---
DATE OF SERVICE: 06/28/2018 SUBJECTIVE: Ms. Hadley is breathing better, feels better. OBJECTIVE: VITAL SIGNS: Her blood pressure is 142/64, pulse is 60, it is sinus on the monitor, is regular. LUNGS: Clear. CARDIAC: Normal S1, normal S2. No new murmur, rub, or gallop. ABDOMEN: Soft and nontender. EXTREMITIES: No edema. ASSESSMENT: 1. Previous bypass surgery. 2. Mitral stenosis. 3. Paroxysmal atrial fibrillation. 4. Congestive heart failure, appears to be diastolic, improved now on oral furosemide instead of intravenous. PLAN: Dr. Payne suggested the possibility of a transesophageal echo just to check her mitral valve to see whether anything else could be done with that valve. Also, apparently she has aortic stenosis, there is an echo from our office that was done recently as well, that information will be obtained. Dr. Parisi will resume care tomorrow, will keep n.p.o. after midnight in case he wants to do transesophageal echo with Dr. Payne that would be indicated. Job ID: [id number]
[2018-06-28] MEDS: Mometasone/Formoterol 120 PUFF INHALER INH SCH ×2 (10:32→18:08)
--- NOTE | 2018-06-28 11:27 | PQF ---
SORAIDA BARBA TONI MD [id number] [address] [place] [address] [id number] CLINICAL DOCUMENTATION IMPROVEMENT CLARIFICATION FORM: ICD-10 Updated PLEASE DO AN ADDENDUM TO THE PROGRESS NOTE WITH ANY DOCUMENTATION UPDATES OR ADDITIONS AND CARRY THROUGH TO DC SUMMARY. THANK YOU. DATE: 06-28-18 ATTN: DR. MERCADO Please exercise your independent, professional judgment in responding to the clarification form. Clinical indicators are provided on the bottom of this form for your review Please check appropriate box(s): [ X ] CKD Stage 3 [ ] No CKD - Insignificant lab value [ ] Other [ ] Unable to determine In addition, please specify: Present on Admission (POA): [ X ] Yes [ ] No [ ] Unable to determine For continuity of documentation, please document condition throughout progress notes and discharge summary. Thank You. CLINICAL INDICATORS - SIGNS / SYMPTOMS/ LABS are present in the medical record: Lab Results: GFR BUN CREAT 2-15 44 25 1.20 2-17 48 24 1.11 RISK FACTORS: 2-16 H&P (ROGELIO); HX CAD AND HTN TREATMENT LABS: 06-25 / 2-17 National Kidney Foundation Guidelines for CKD Staging Stage I Kidney damage with normal or increased GFR GFR > 90 Stage II Kidney damage with mildly decreased GFR GFR 60-89 Stage III Kidney damage with moderately decreased GFR GFR 30-59 Stage IV Kidney damage with severely decreased GFR GFR 16-29 Stage V Kidney failure GFR< 15 ESRD End Stage Renal Disease On dialysis Acute Renal Failure/Acute Kidney Failure defined as: Increases in SCr by (>) 0.3 mg/dl within 48 hours OR- Increases in SCr by (>) 1.5 times baseline, known or presumed to have occurred within the prior 7 days OR- Urine volume < 0.5 ml/kg/hour for 6 hours (KDIGO supplement 2012 for RIFLE/OFELIA criteria) THANK YOU, MICHELLE (This form is maintained as a part of the permanent medical record) 2014 [employer]. All Rights Reserved Michelle Prajapati RN, BS [email or web address] Cell [facility]ITALKarissa
--- NOTE | 2018-06-28 11:29 | PQF ---
SORAIDA BARBA TONI MD [id number] [facility] [place][note 3] [id number] CLINICAL DOCUMENTATION IMPROVEMENT CLARIFICATION FORM: ICD-10 Updated PLEASE DO AN ADDENDUM TO THE PROGRESS NOTE WITH ANY DOCUMENTATION UPDATES OR ADDITIONS AND CARRY THROUGH TO DC SUMMARY. THANK YOU. DATE: 06-28-18 ATTN: DR. MERCADO Please exercise your independent, professional judgment in responding to the clarification form. Clinical indicators are provided on the bottom of this form for your review Please check appropriate box(s): [X ] Acute Respiratory Failure: [X ] with Hypoxia[ ] with Hypercapnia [ ] Hypoxia [ ] Other diagnosis [ ] Unable to determine In addition, please specify: Present on Admission (POA): [ X] Yes [ ] No [ ] Unable to determine For continuity of documentation, please document condition throughout progress notes and discharge summary. Thank You. CLINICAL INDICATORS - SIGNS / SYMPTOMS / LABS ED: HYPOXIA ; NEW ONSET CHF * EMS CALLED FOR LOW OXYGEN SATURATION * NOT ON HOME O2 * O2 SAT 77% WHILE SITTING AT HOME * LE EDEMA CXR: MILD PULMONARY VASCULAR CONGESTION, SMALL BILATERAL PLEURAL EFFUSION RR 16-20 O2 SAT 95-97% ON 4LNC 2-15 H&P (ROGELIO): * REPORTS GETTING SOB OFF AND ON FOR SOME TIME - LAST 2 DAYS IT GOT EXTREMELY WORSE - BARELY ABLE TO WALK FROM LIVING ROOM AND BACK - GETTING EXTREMELY SOB * SOB IF LAY FLAT - SLEEP PRETTY MUCH SITTING UPRIGHT RISK FACTORS H&P (ROGELIO): * CHF EXACERBATION * HX OF SMOKING ON AVERGE ABOUT A PACK A DAY FOR ABOUT 40 YEARS - QUIT IN 2007 TREATMENTS: CPOE: OXYGEN VIA NC - 2-16 4- 3.5 LNC / 2-17 2.5 LNC / 2-18 RA MAR: ALBUTEROL INHALER 2-16 TO 2-18 DULERA INHALER 2-16 TO 2-18 LASIX IV 2-16 / 2-17 LASIX PO 2-18 THANK YOU, MICHELLE (This form is maintained as a part of the permanent medical record) 2014 [employer]. All Rights Reserved Michelle Prajapati RN, BS [email or web address] Cell [facility]
--- NOTE | 2018-06-28 15:39 | PDOC.PN ---
- Subjective Encounter Start Date: 06/28/18 Encounter Start Time: 10:20 Ms. Hadley was seen today in follow-up of CHF exacerbation. She is breathing better today. She is off supplemental oxygen. She denies having any chest pain. - Objective Resuscitation Status - Order Detail: 06/26/18 09:57 Resuscitation Status Routine Resuscitation Status: FULL: Full Resuscitation MAR Reviewed: Yes Vital Signs & Weight: Vital Signs (12 hours) Temp Pulse Resp BP Pulse Ox 06/28/18 15:36 97.7 F 66 18 130/60 90 L 06/28/18 14:27 62 12 06/28/18 11:46 97.8 F 55 L 18 120/57 L 90 L 06/28/18 10:32 64 16 06/28/18 10:30 64 16 06/28/18 07:31 97.6 F 60 18 142/64 H 90 L 06/28/18 04:00 98.5 F 59 L 16 121/57 L 90 L Weight Weight 226 lb 6.4 oz I&O: 06/27/18 06/28/18 06/29/18 06:59 06:59 06:59 Intake Total 1640 1640 Output Total 3825 2800 650 Balance -2185 -1160 -650 Result Diagrams: 06/27/18 05:52 06/27/18 05:52 Additional Labs: Accuchecks 06/28/18 06/28/18 06/27/18 10:47 05:48 19:58 POC Glucose 64 L 85 175 H 06/27/18 16:57 POC Glucose 102 Phys Exam - Physical Examination HEENT: PERRLA Respiratory: no wheezing, no rales, no rhonchi, clear to auscultation bilateral + coarse breath sounds Cardiovascular: RRR, no rub 2/6 systolic murmur Gastrointestinal: soft, non-tender, no distention, positive bowel sounds Musculoskeletal: pulses present, edema present trace pedal edema Neurological: non-focal Dx/Plan (1) CHF exacerbation Code(s): I50.9 - HEART FAILURE, UNSPECIFIED Status: Acute Qualifiers: Heart failure type: diastolic Qualified Code(s): I50.33 - Acute on chronic diastolic (congestive) heart failure (2) Atrial fibrillation Code(s): I48.91 - UNSPECIFIED ATRIAL FIBRILLATION Status: Chronic (3) DM type 2 (diabetes mellitus, type 2) Status: Chronic Qualifiers: (4) Dyslipidemia Code(s): E78.5 - HYPERLIPIDEMIA, UNSPECIFIED Status: Chronic (5) HTN (hypertension) Code(s): I10 - ESSENTIAL (PRIMARY) HYPERTENSION Status: Chronic Qualifiers: (6) Acute respiratory failure with hypoxia Code(s): J96.01 - ACUTE RESPIRATORY FAILURE WITH HYPOXIA Status: Acute (7) Chronic kidney disease, stage 2 (mild) Code(s): N18.2 - CHRONIC KIDNEY DISEASE, STAGE 2 (MILD) Status: Chronic - Plan * Acute on chronic diastolic heart failure- she is responding well to diureses * Acute on chronic respiratory failure due to above- improved, she is now off supplemental oxygen * HTN- blood pressure has been a bit low * DM- blood glucose is stable * AFIB- her heart rate is stable * ? Aortic stenosis- possible KRISHNA to assess her valve tomorrow
[2018-06-28] MEDS: Pregabalin 75 MG CAP PO SCH (21:30)
[2018-06-28] MEDS: Atorvastatin Calcium 20 MG TAB PO SCH (21:30)
[2018-06-29] MEDS: PROVENTIL INHALER 6.7 G (200 INHALATIONS) INH SCH ×3 (00:20→12:23)
[2018-06-29] MEDS: Mometasone/Formoterol 120 PUFF INHALER INH SCH (06:01)
[2018-06-29] MEDS ORDERED: Lidocaine 1% PF 5 ML VIAL ONE ×2 (07:06→14:55)
[2018-06-29] MEDS ORDERED: PROPOFOL 20 ML ONE (07:06)
[2018-06-29] MEDS: Apixaban 5 MG TAB PO SCH (09:29)
[2018-06-29] MEDS: Fish Oil 1,000 MG CAP PO SCH (09:29)
[2018-06-29] MEDS: Dronedarone HCl 400 MG TAB PO SCH ×2 (09:29→18:16)
[2018-06-29] MEDS: Aspirin Chewable 81 MG TAB PO SCH (09:29)
[2018-06-29] MEDS: Montelukast Sodium 10 mg Tablet PO SCH (09:30)
[2018-06-29] MEDS: FLUoxetine HCl 20 MG CAP PO SCH (09:30)
[2018-06-29] MEDS: Furosemide 40 MG TAB PO SCH (09:30)
[2018-06-29] MEDS: Triple Antibiotic Ointment 30 GM TUBE TOP SCH (09:32)
[2018-06-29] MEDS: HumuLIN 70/30 (300 UNITS/3 ML VIAL) SC SCH (09:34)
[2018-06-29 11:24] LABS: #Eosinphils 0.1 thou/uL (0.0-0.7); #Lymphocytes 0.6 thou/uL (1.20-3.40); #Monocytes 0.5 thou/uL (0.11-0.59); #Neutrophils 3.8 thou/uL (1.40-6.50); %Basophils 0.7 % (0.0-1.0); %Eosinophils 1.8 % (0.0-10.0); %Neutrophils 76.6 % (42.0-75.0); Mean Corpuscular HGB CONC 30.4 g/dL (32.0-36.0); Mean Corpuscular Hemoglobin 26.2 pg (27.0-31.0); Mean Corpuscular Volume 86.2 fL (78.0-98.0); Mean Platelet Volume 8.2 fL (7.4-10.4); Platelet Count 199 thou/uL (130-400); RBC Distribution Width 17.6 % (11.5-14.5); Red Blood Cell (RBC) Count 3.83 mill/uL (4.20-5.40)
[2018-06-29 11:37] LABS: Anion Gap 13 mmol/L (10-20); BUN (Urea Nitrogen) 27 mg/dL (9.8-20.1); Calc. Creatinine Clearance 63 mL/min (70-130); Calcium 9.1 mg/dL (7.8-10.44); Carbon Dioxide 28 mmol/L (23-31); Chloride 103 mmol/L (98-107); Estimated GFR-MDRD 41; Glucose 153 mg/dL (83-110); Magnesium 2.2 mg/dL (1.6-2.6); Phosphorus 3.9 mg/dL (2.3-4.7); Potassium 5.1 mmol/L (3.5-5.1); Sodium 139 mmol/L (136-145)
--- NOTE | 2018-06-29 13:53 | OP ---
DATE OF PROCEDURE: 06/29/2018 PREOPERATIVE DIAGNOSES: Aortic stenosis and mitral stenosis. POSTOPERATIVE DIAGNOSES: Moderate aortic stenosis and moderate mitral stenosis. PROCEDURE PERFORMED: Transesophageal echocardiography with color-flow Doppler. INDICATIONS FOR PROCEDURE: The patient was consented for the procedure. I discussed the procedure in full detail with the patient. Risks include, but not limited to the following: Damage to teeth and back of throat, damage to esophagus requiring emergent surgery. All questions answered. Given the above, the patient agreed to proceed above procedure. FINDINGS: Overall LVEF estimated at 50% to 55%. The mitral valve was well visualized. There was heavy calcification with moderate decreased excursion. Pressure half-time estimated at 131 with a mitral valve area of 1.7. This was repeated with a pressure half-time of 145 with valve area of 1.5. Aortic valve was also well visualized with decreased excursion. Aortic valve area by planimetry estimated at 1.2 to 1.4. IMPRESSION: Moderate aortic stenosis and moderate mitral stenosis. Job ID: [id number]
--- NOTE | 2018-06-29 14:37 | PDOC.PN ---
- Subjective Encounter Start Date: 06/29/18 Encounter Start Time: 09:00 Patient seen and examined for CHF. s/p KRISHNA. No new complaints. No overnight events - Objective Resuscitation Status - Order Detail: 06/26/18 09:57 Resuscitation Status Routine Resuscitation Status: FULL: Full Resuscitation MAR Reviewed: Yes Vital Signs & Weight: Vital Signs (12 hours) Temp Pulse Resp BP BP BP Pulse Ox 06/29/18 13:11 134/62 06/29/18 12:23 62 16 93 L 06/29/18 11:53 97.6 F 55 L 16 126/59 L 93 L 06/29/18 09:27 97.8 F 55 L 18 161/94 H 96 06/29/18 09:18 96 06/29/18 06:01 59 L 16 91 L 06/29/18 04:00 98.1 F 67 16 103/61 90 L Weight Weight 223 lb 1.6 oz I&O: 06/28/18 06/29/18 06/30/18 06:59 06:59 06:59 Intake Total 1640 980 120 Output Total 2800 1000 1800 Balance -1160 -20 -1680 Result Diagrams: 06/29/18 10:58 06/29/18 10:58 Additional Labs: Accuchecks 06/29/18 06/29/18 06/28/18 10:45 04:54 20:27 POC Glucose 130 H 133 H 142 H 06/28/18 16:29 POC Glucose 202 H EKG Reviewed by me: Yes (Tele SR) Phys Exam - Physical Examination Constitutional: NAD Respiratory: no wheezing, no rhonchi Cardiovascular: RRR, no rub Gastrointestinal: soft, positive bowel sounds Musculoskeletal: no edema Neurological: moves all 4 limbs Dx/Plan - Plan DVT proph w/SCDs IMPRESSION: 1. Acute on chronic diastolic HF exacerbation - ACC stage C/Acute hypoxic resp failure 2. Moderate /MS 3. Obesity BMI 34.9 4. CAD s/p CABG 5. Par Afib 6. DM2 PLAN: s/p KRISHNA Cont PO diuretics Cont ASA/Eliquis/Multaq and other meds as below DC home once cleared by Cardiology Review of Systems - Review of Systems Respiratory: negative: Cough, Dry, Shortness of Breath, Hemoptysis, SOB with Excertion, Pleuritic Pain, Sputum, Wheezing Cardiovascular: negative: chest pain, palpitations, orthopnea, paroxysmal nocturnal dyspnea, edema, light headedness, other Gastrointestinal: negative: Nausea, Vomiting, Abdominal Pain, Diarrhea, Constipation, Melena, Hematochezia, Other - Medications/Allergies Allergies/Adverse Reactions: Allergies Allergy/AdvReac Type Severity Reaction Status Date / Time Penicillins Allergy Intermediate Verified 06/26/18 01:57 lactose Allergy Verified 06/26/18 01:57 Medications: Current Medications Acetaminophen (Tylenol) 650 mg PO Q4H PRN PRN Reason: Headache/Fever/Mild Pain (1-3) Hydrocodone Bitart/Acetaminophen (Panacea 5/325) 1 tab PO Q4H PRN PRN Reason: Moderate Pain (4-6) Albuterol Sulfate (Proventil Hfa) 2 puff INH [id number] [facility] Last Admin: 06/29/18 12:23 Dose: 2 puff Albuterol/Ipratropium (Duoneb) 3 ml NEB Q4H PRN PRN Reason: SOB &/or Wheezing Apixaban (Eliquis) 5 mg PO BID [facility] Last Admin: 06/29/18 09:29 Dose: 5 mg Aspirin (Aspirin Chewable) 81 mg PO DAILY [facility] Last Admin: 06/29/18 09:29 Dose: 81 mg Atorvastatin Calcium (Lipitor) 20 mg PO HS [facility] Last Admin: 06/28/18 21:30 Dose: 20 mg Calcium Carbonate (Tums) 1,000 mg PO Q4H PRN PRN Reason: Heartburn or Indigestion Dextrose/Water (Dextrose 50%) 25 gm SLOW IVP PRN PRN PRN Reason: Hypoglycemia Dronedarone (Multaq) 400 mg [facility] BID[facility] Last Admin: 06/29/18 09:29 Dose: 400 mg Fish Oil (Fish Oil) 1,000 mg PO BID [facility] Last Admin: 06/29/18 09:29 Dose: 1,000 mg Fluoxetine HCl (Prozac) 40 mg PO DAILY [facility] Last Admin: 06/29/18 09:30 Dose: 40 mg Furosemide (Lasix) 40 mg PO QAM [facility] Last Admin: 06/29/18 09:30 Dose: 40 mg Glucagon (Glucagon) 1 mg IM PRN PRN PRN Reason: Hypoglycemia Hydralazine HCl (Apresoline) 10 mg SLOW IVP Q4H PRN PRN Reason: SBP > 180 and HR < 70 Dextrose/Water (D5w) 1,000 mls @ 0 mls/hr IV .Q0M PRN PRN Reason: Hypoglycemia Insulin Human Isoph/Insulin Regular (Humulin 70/30) 20 units SC QPM [facility] Last Admin: 06/28/18 21:42 Dose: Not Given Insulin Human Isoph/Insulin Regular (Humulin 70/30) 20 units SC QAM [facility] Last Admin: 06/29/18 09:34 Dose: Not Given Insulin Human Lispro (Humalog) 0 units SC .MODERATE SLIDING SC PRN PRN Reason: Moderate Correction[facility] Scale Last Admin: 06/28/18 18:18 Dose: 2 unit Insulin Human Lispro (Humalog) 0 units SC .BEDTIME SLIDING SC PRN PRN Reason: Bedtime Correctional Scale Last Admin: 06/26/18 20:16 Dose: 2 unit Metoprolol Succinate (Toprol Xl) 25 mg PO DAILY [facility] Last Admin: 06/29/18 09:28 Dose: 25 mg Mometasone Furoate/Formoterol Fumar (Dulera 200 Mcg/5 Mcg Inhaler) 1 puff INH BID-RT [facility] Last Admin: 06/29/18 06:01 Dose: 1 puff Montelukast Sodium (Singulair) 10 mg PO DAILY [facility] Last Admin: 06/29/18 09:30 Dose: 10 mg Neomycin/Polymyxin/Bacitracin (Triple Antibiotic Ointment) 1 gm TOP BID [facility] Last Admin: 06/29/18 09:32 Dose: 1 gm Ondansetron HCl (Zofran Odt) 4 mg PO Q6H PRN PRN Reason: Nausea/Vomiting Ondansetron HCl (Zofran) 4 mg IVP Q6H PRN PRN Reason: Nausea/Vomiting Pregabalin (Lyrica) 300 mg PO HS [facility] Last Admin: 06/28/18 21:30 Dose: 300 mg
[2018-06-29] MEDS ORDERED: PROPOFOL 200 MG/20 ML VIAL ONE (14:55)
[2018-06-29 16:59] VITALS: BP 106/49; TEMP 97.5
--- NOTE | 2018-06-29 17:18 | DIS ---
DATE OF ADMISSION: 06/25/2018 DATE OF DISCHARGE: 06/29/2018 DISCHARGE DISPOSITION: Home. FOLLOWUP: 1. Follow up with primary care physician, Dr. Kristi Bustillo, in 1 week. 2. Follow up with Dr. Parisi in 2 weeks. 3. Basic metabolic profile after 1 week is recommended, primary care physician advised to follow. DISCHARGE MEDICATIONS: Lasix 20 mg daily. Isosorbide dinitrate was discontinued. All other home medications were left unchanged. BRIEF HOSPITAL COURSE: The patient is a 73-year-old female with diabetes mellitus type 2, hypertension, and paroxysmal atrial fibrillation, presented to the hospital on June with shortness of breath. Her O2 saturation was 77% on arrival. Her workup was consistent with congestive heart failure exacerbation. She was started on IV diuretics with good response. She was evaluated by Cardiology. She underwent transesophageal echocardiogram on the day of discharge that showed moderate aortic stenosis and moderate mitral stenosis. Lasix has been changed to oral. She has been cleared by Cardiology for discharge. FINAL DIAGNOSES: 1. Acute hypoxic respiratory failure secondary to acute on chronic diastolic heart failure exacerbation. 2. Moderate aortic stenosis. 3. Moderate mitral stenosis. 4. Obesity with a BMI of 34.9. 5. Coronary artery disease, status post coronary artery bypass grafting. 6. Paroxysmal atrial fibrillation. 7. Diabetes mellitus type 2. 8. Mild intermittent asthma. 9. Hypertension. 10. Peripheral vascular disease. 11. Peripheral neuropathy. 12. Hyperlipidemia. 13. Chronic kidney disease stage 3. 14. Chronic anemia. Total time coordinating the discharge of this patient was 32 minutes. Plan was discussed with the patient and the family at the bedside. They stated understanding. Job ID: [id number]
--- NOTE | 2018-07-03 17:05 | EKG ---
Test Reason : Blood Pressure : / mmHG Vent. Rate : 057 BPM Atrial Rate : 057 BPM P-R Int : 160 ms QRS Dur : 134 ms QT Int : 504 ms P-R-T Axes : 007 000 088 degrees QTc Int : 490 ms Sinus bradycardia Left bundle branch block Abnormal ECG Confirmed by DARIUSZ SANCHEZ D.O. ([id number]), editor managing newspaper ISAMAR FINLEY ([id number]) on 07/03/2018 5:04:40 PM Referred By: Confirmed By:DARIUSZ SANCHEZ D.O.
== END 2018-06-29 18:29 | disposition home or self-care (01) | DRG 291 ==
LOC: ERS 20:26 → 2SE 23:13
PROVIDERS: ADMIT Hospitalist; ATTEND Hospitalist
PROC: B24BZZ4 Ultrasonography of Heart with Aorta, Transesophageal (ICD-10-PCS; principal; 2018-06-29)
DX: I13.0 Hypertensive heart and chronic kidney disease with heart failure and stage 1 through stage 4 chronic kidney disease, or unspecified chronic kidney disease (principal); I50.33 Acute on chronic diastolic (congestive) heart failure; J96.01 Acute respiratory failure with hypoxia; I95.9 Hypotension, unspecified; E11.22 Type 2 diabetes mellitus with diabetic chronic kidney disease; Z79.4 Long term (current) use of insulin; E78.5 Hyperlipidemia, unspecified; I25.10 Atherosclerotic heart disease of native coronary artery without angina pectoris; I48.0 Paroxysmal atrial fibrillation; G47.33 Obstructive sleep apnea (adult) (pediatric); I08.0 Rheumatic disorders of both mitral and aortic valves; E11.51 Type 2 diabetes mellitus with diabetic peripheral angiopathy without gangrene; Z68.34 Body mass index [BMI] 34.0-34.9, adult; Z95.1 Presence of aortocoronary bypass graft; E11.42 Type 2 diabetes mellitus with diabetic polyneuropathy; J45.20 Mild intermittent asthma, uncomplicated; N18.3 Chronic kidney disease, stage 3 (moderate); D63.1 Anemia in chronic kidney disease; F32.9 Major depressive disorder, single episode, unspecified; Z88.0 Allergy status to penicillin; Z87.891 Personal history of nicotine dependence; Z79.82 Long term (current) use of aspirin; E66.9 Obesity, unspecified; Z95.820 Peripheral vascular angioplasty status with implants and grafts; Z79.01 Long term (current) use of anticoagulants; Z79.51 Long term (current) use of inhaled steroids; Z86.73 Personal history of transient ischemic attack (TIA), and cerebral infarction without residual deficits; Z88.8 Allergy status to other drugs, medicaments and biological substances; Z91.011 Allergy to milk products
CPT/HCPCS: 36415; 36416; 71045; 80048; 80053; 83735; 83880; 84100; 84484; 85025; 93005; 93312; 94664; 94760; 96374; J1815; J1940; J2001; J2704

== ENCOUNTER 2018-07-06 09:22 | Outpatient (CLI) | payer MEDICARE, MEDICAID ==
--- NOTE | 2018-07-06 10:22 | RAD ---
TWO VIEWS CHEST: Comparison: 06-01-17 History: Respiratory failure. FINDINGS: Two views of the chest shows an enlarged cardiomediastinal silhouette. Atherosclerotic calcifications are seen in the aorta. The patient is status post sternotomy. There is no evidence of consolidation, mass, or pleural effusion. IMPRESSION: Cardiomegaly without evidence of acute cardiopulmonary disease. POS: [facility]
== END 2018-07-06 09:23 | disposition home or self-care (01) ==
LOC: RAD-FRANK 09:22
PROVIDERS: ATTEND Nurse Practitioner Family
DX: J96.90 Respiratory failure, unspecified, unspecified whether with hypoxia or hypercapnia (principal); I51.7 Cardiomegaly
CPT/HCPCS: 71046

== ENCOUNTER 2018-08-06 11:03 | Inpatient (IN) | payer MEDICARE, MEDICAID ==
[2018-08-06] MEDS ORDERED: Nitroglycerin 2% Ointment 1 INCH/1 GM Packet ONE (11:48)
[2018-08-06] MEDS ORDERED: Furosemide 40 MG/4 ML VIAL ONE (11:48)
--- NOTE | 2018-08-06 11:52 | RAD ---
FPortable upright frontal chest radiograph: 08/06/2018 COMPARISON: 07/06/2018 HISTORY: Shortness of breath, low oxygen saturation FINDINGS: Midline sternotomy wires are present. Heart and mediastinal contours are stable. No pneumot horax or pleural fluid. No focal consolidation or alveolar edema. Mild pulmonary vascular prominence. IMPRESSION: Mild pulmonary vascular prominence with no focal consolidation or alveolar edema.
[2018-08-06 11:58] LABS: #Lymphocytes 0.6 thou/uL (1.20-3.40); #Monocytes 0.5 thou/uL (0.11-0.59); #Neutrophils 7.2 thou/uL (1.40-6.50); %Basophils 0.5 % (0.0-1.0); %Eosinophils 0.5 % (0.0-10.0); %Lymphocytes 7.4 % (21.0-51.0); %Monocytes 6.4 % (0.0-10.0); %Neutrophils 85.1 % (42.0-75.0); Hemoglobin 7.6 g/dL (12.0-16.0); Mean Corpuscular HGB CONC 30.3 g/dL (32.0-36.0); Mean Corpuscular Hemoglobin 23.4 pg (27.0-31.0); Mean Corpuscular Volume 77.3 fL (78.0-98.0); Mean Platelet Volume 8.8 fL (7.4-10.4); Platelet Count 230 thou/uL (130-400); Red Blood Cell (RBC) Count 3.25 mill/uL (4.20-5.40); White Blood Cell (WBC) Count 8.4 thou/uL (4.8-10.8)
[2018-08-06 12:19] LABS: ALT (SGPT) 20 U/L (8-55); AST (SGOT) 28 U/L (5-34); Albumin 3.9 g/dL (3.4-4.8); Alkaline Phosphatase 60 U/L (40-150); Anion Gap 14 mmol/L (10-20); BUN (Urea Nitrogen) 21 mg/dL (9.8-20.1); CK (CPK) 365 U/L (29-168); Calc. Creatinine Clearance 0 mL/min (70-130); Calcium 9.3 mg/dL (7.8-10.44); Carbon Dioxide 23 mmol/L (23-31); Chloride 107 mmol/L (98-107); Estimated GFR-MDRD 49; Glucose 126 mg/dL (83-110); Lipase 10 U/L (8-78); Potassium 4.7 mmol/L (3.5-5.1); Protein, Total 6.9 g/dL (6.0-8.3); Sodium 139 mmol/L (136-145)
[2018-08-06 12:48] LABS: CKMB 4.6 ng/mL (0-6.6)
--- NOTE | 2018-08-06 13:30 | CT ---
FExam: CT angiogram of the chest HISTORY: Elevated d-dimer. Shortness of breath. Decreased O2 saturations COMPARISON: None TECHNIQUE: CT angiogram of the chest is performed in the axial plane. Three-dimensional reformatted i mages are submitted for interpretation FINDINGS: Mediastinum: Nonenlarged mediastinal lymph nodes. There are enlarged right paratracheal lymph node me asuring 1.5 x 1.4 cm. No significant hilar mass or lymphadenopathy. HEART: Normal size. No significant pericardial fluid. There are coronary calcifications. Calcificatio n mitral annulus. Aorta: Visualized aorta demonstrates atherosclerosis. No aneurysm or dissection Upper solid abdominal viscera: No abnormality enhancement. Opacification of the inferior vena cava du e to right heart failure Trachea and central bronchi: Patent Pleural spaces: Trace left and [id number] right-sided pleural effusion Lung parenchyma: Patchy groundglass opacities. No masses or consolidation. Pneumothorax: None Osseous structures: No lytic or blastic lesions Pulmonary arteries: Adequate contrast opacification pulmonary arterial system to the level of segment al arteries. No filling defect to suggest pulmonary embolism IMPRESSION: Adequate contrast opacification of the pulmonary arterial system to the level of the segm ental arteries. No filling defect to suggest thromboembolism.
[2018-08-06] MEDS ORDERED: Aspirin Chewable 81 MG TAB ONE (13:40)
[2018-08-06 13:44] LABS: Bilirubin Negative (Negative); Blood, Urine Negative (Negative); Clarity CLEAR (Clear); Glucose, Urine (Dipstick) Negative (Negative); Leukocyte Trace (Negative); Nitrite Negative (Negative); Protein, Urine (Dipstick) Negative (Neg-Trace); Specific Gravity, Urine 1.009 (1.002-1.036); Urobilinogen 0.2 mg/dL (0.2-1.0)
[2018-08-06 13:46] LABS: Bacteria/HPF None Seen HPF (None Seen); Hyaline Casts/LPF 0-3 HYALINE CAST LPF (0-3 Hyaline); RBC/HPF 0-3 HPF (0-3); Squamous Epithelial 0-3 HPF (0-3)
[2018-08-06] MEDS ORDERED: Ondansetron ODT 4 MG TAB SL PRN (14:56)
[2018-08-06] MEDS ORDERED: Ondansetron PF 4 MG/2 ML Vial IVP PRN (14:56)
[2018-08-06] MEDS ORDERED: ISOVUE-370 76%-LOCM 1 ML ONE (15:28)
[2018-08-06 15:40] LABS: Troponin I 0.438 ng/mL (< 0.028)
[2018-08-06 15:44] LABS: Hemoglobin 7.9 g/dL (12.0-16.0); Platelet Count 251 thou/uL (130-400)
[2018-08-06] MEDS ORDERED: Acetaminophen 325 MG TAB PO PRN (16:28)
[2018-08-06] MEDS ORDERED: Fluticasone Propionate Nasal Spray 16 gm Bottle NASAL PRN (16:44)
[2018-08-06] MEDS: Dronedarone HCl 400 MG TAB PO SCH (17:56)
[2018-08-06 18:16] LABS: Reticulocyte Count 3.2 % (0.5-1.5)
--- NOTE | 2018-08-06 18:25 | CON ---
DATE OF CONSULTATION: 08/06/2018 REASON FOR CONSULTATION: Positive troponins. PRIMARY ED TECH: Ryan Parisi MD HISTORY OF PRESENT ILLNESS: Ms. Hadley is a very pleasant 73-year-old white female, who comes to the hospital for chest pain. She has been noticing increase in episodes of chest pain as of lately and saw Dr. Parisi in the office and underwent a PET scan stress testing for this. Recently, she continued to have a little worsening of her chest pain, so PCP recommended she come in for further evaluation to the ER. She was initially seen and her troponin was mildly elevated, so she was admitted and Cardiology is being consulted. Dr. Parisi follows her for history of cardiomyopathy. She has a previous bypass. The last catheterization was in 2014, at which point, she had the patent bypasses. She currently on my evaluation, denies any chest pain, tightness, or pressure. There is no evidence of bleeding that she can tell, but her hemoglobin did drop significantly from admission to now. No other issues at this time. Breathing is at baseline. PAST MEDICAL HISTORY: 1. Bronchial asthma. 2. Paroxysmal atrial fibrillation. 3. Chronic anticoagulation on Eliquis. 4. Hypertension. 5. Type 2 diabetes. 6. Coronary artery disease status post CABG as above. 7. Carotid artery disease. 8. Peripheral neuropathy. 9. Hyperlipidemia. 10. Depression. PAST SURGICAL HISTORY: 1. Hysterectomy. 2. Tonsillectomy. 3. CABG x4. 4. Peripheral vascular disease stents placed on her legs and abdomen. 5. Bilateral carotid endarterectomies. OUTPATIENT MEDICATIONS: 1. Simvastatin 20 mg q.p.m. 2. Lyrica. 3. Singulair. 4. Toprol-XL 12.5 mg a day. 5. Insulin NovoLog 70/30. 6. Lasix 20 mg a day. 7. Fish oil. 8. Prozac 40 mg a day. 9. Multaq 400 mg b.i.d. 10. Symbicort. 11. Aspirin 81 a day. 12. Eliquis 5 mg b.i.d. 13. Albuterol inhaler. 14. Fluticasone. 15. PreserVision. 16. [place]-3 fish oil. ALLERGIES: PENICILLIN AND LACTOSE. SOCIAL HISTORY: No alcohol, tobacco, or drugs. She did smoke in the past, but started when she was 11 years old, up to 5 packs a day, but she quit smoking in 2007. She has smoked for about 40 years. No alcohol or drug use. FAMILY HISTORY: Coronary artery disease in father. REVIEW OF SYSTEMS: A 12-point review of systems is done and is all negative unless stated in the history of present illness. PHYSICAL EXAMINATION: VITAL SIGNS: Temperature 97.6, pulse 84, respiratory rate 16, saturation 94% on room air, and blood pressure 150/65. GENERAL: Awake, alert, and oriented x3, in no distress. HEENT: Normocephalic and atraumatic. NECK: Supple. LUNGS: Clear. CARDIOVASCULAR: S1 and S2. No S3 or S4. There is a grade 2/6 systolic murmur at the right upper sternal border. There is a second holosystolic murmur at the apex. ABDOMEN: Soft. Positive bowel sounds. EXTREMITIES: 1+ trace edema. SKIN: Warm and dry. LABORATORY DATA: Laboratory work was reviewed. CBC with a white count of 8.4, hemoglobin of 7.6 and up to 7.9, her baseline is at 10 and actually 14 back in 2018. Hematocrit of 25 and platelet count of 230. Coags, D-dimer is a little bit elevated. Chemistries were unremarkable except for glucose of 126. Troponin was 0.38 and then 0.43 with a BNP was 1182. Her BNP baseline is in the 700s to 200s. UA was unremarkable. CT of the chest shows no filling defects to suggest acute thromboembolism. There is trace left and [id number] right-sided pleural effusions. Patchy ground-glass opacities suggestive of pulmonary edema. Chest x-ray showed mild pulmonary vascular prominence with no focal consolidation or alveolar hemorrhage. Most recent echocardiogram was done a little over a month ago. This is a transesophageal echo and it showed moderate and moderate MR. ASSESSMENT AND PLAN: 1. Acute on chronic systolic and diastolic heart failure, most recent ejection fraction at 50% to 55%. 2. Anemia: Concern for gastrointestinal bleeding given the change from her baseline. 3. Non-ST elevation myocardial infarction. Elevated troponins. She did have chest pain. This would suggest an acute coronary syndrome; however, at this time, I am concerned she may be having some bleeding, so this would make it prohibitive for her to have full anticoagulation with any agent until we document stabilization of hemoglobin or no evidence of active bleeding. 4. I have spoken with her and her daughter at length about the current situation. Plan moving forward would be to continue to trend troponins and repeat an echocardiogram. If left ventricular function remains normal and troponin does not really significantly rise, I would probably think this is demand ischemia from her low hemoglobin. We would recommend to keep hemoglobin above 10. We would recommend 2 units of blood transfused slowly with Lasix in between. Other than that, I would recommend against any anticoagulation at this time. We will hold Eliquis for now. 5. Would continue other medications. 6. If her troponin continues to climb or she continues to have episodes of chest pain, we will plan on doing a heart catheterization on Thursday; however, she would not be a candidate for any stenting. We will only do diagnostic at that time depending on the situation. 7. I expect continue to trend troponins and hemoglobin, will give us a better picture of what really is going on at this time. 8. She will remain in the hospital over the weekend definitely and we will continue to monitor. 9. We will follow. Job ID: [id number]
--- NOTE | 2018-08-06 18:36 | HP ---
CHIEF COMPLAINT: Chest pain. HISTORY OF PRESENT ILLNESS: This patient is a 73-year-old female, who presented via the emergency department. This patient has a significant past medical history notable for severe coronary artery disease with a history of bypass and apparently a positive stress test on Thursday. The patient reports that she was hospitalized a month ago with shortness of breath, and at that time, she was diagnosed with diastolic heart failure. She also has a history of atrial fibrillation and takes Eliquis and Multaq. The patient developed some sharp chest pain on Thursday. Prior to her stress test, called EMS, had an EKG, which was read as normal, so she declined to go to the hospital because she wanted to follow through with her stress test, which she did. The pain resolved spontaneously, but she was not able to determine exactly when. Following the stress test, she had some nausea, vomiting, and diarrhea for about 48 hours that spontaneously resolved as well. She has had since then some 10/10 pain in her legs associated with cramping that seems to be worse at night and occurs occasionally during the day. She followed up with her PCP for the leg cramps and the PCP called Dr. Parisi's office to follow up on the stress test and was told that it was abnormal. She had recurrent chest pressure today, which she states feels like it is more her back at the T4 level. Additionally, she had dull pain to her left arm since yesterday. She was sent to the emergency department by her PCP. In the ER, workup revealed the patient had new anemia and a Hemoccult was sent and it turned out to be positive as well. The patient denies any melena, hematochezia, or other GI symptoms. She does admit to a 10-pound weight loss over the last 3 months with increasing fatigue and weakness since April. She has never had a screening colonoscopy. She denied fevers, chills, palpitations, cough, abdominal pain, dysuria, hematuria, or edema. REVIEW OF SYSTEMS: All other systems were reviewed and all pertinent positive and negative findings were noted in history of present illness. PAST MEDICAL HISTORY: Asthma; atrial fibrillation; hypertension; diabetes mellitus; coronary artery disease; carotid disease; peripheral neuropathy; PVD; hyperlipidemia; depression; diastolic congestive heart failure; chronic kidney disease, stage 3, and cataracts. PAST SURGICAL HISTORY: Hysterectomy, tonsillectomy, 4-vessel CABG, peripheral vascular disease in the legs and abdomen, bilateral carotid endarterectomy. FAMILY HISTORY: Father had coronary artery disease and rectal cancer. SOCIAL HISTORY: The patient is a nonsmoker, nondrinker, and nondrug user. She is not . She is undecided presently on her code status, but her daughter, Yolanda would be her surrogate decision maker. ALLERGIES: PENICILLIN AND LACTOSE. MEDICATIONS: 1. Albuterol 2 puffs q.6 hours p.r.n. 2. Eliquis 5 mg b.i.d. 3. Aspirin 81 mg p.o. daily. 4. Symbicort 160/4.5 one puff b.i.d. 5. Multaq 400 mg b.i.d. 6. Fish oil one capsule b.i.d. 7. Fluoxetine 40 mg p.o. daily. 8. 70/30 insulin 20 units b.i.d. 9. Metoprolol 25 mg daily. 10. Montelukast 10 mg p.o. daily. 11. Gabapentin 300 mg p.o. at bedtime. 12. Simvastatin 20 mg p.o. at bedtime. 13. Lasix 20 mg p.o. daily. PHYSICAL EXAMINATION: VITAL SIGNS: Temperature is 97.6, pulse 84, respirations 16, O2 saturation 94% on room air, and BP 152/65. GENERAL APPEARANCE: Age-appropriate female, in no distress. She is awake, alert, oriented, in no distress, conversant, pleasant. HEENT: PERRL. No OP lesions. NECK: Supple and symmetric. No JVD or bruits. HEART: Regular with a 2/6 systolic murmur at the upper sternal borders. LUNGS: Clear to auscultation bilaterally. ABDOMEN: Soft, nontender, and nondistended. Normal bowel sounds. EXTREMITIES: No cyanosis, clubbing, or edema. NEUROLOGIC: Alert and oriented x3. Cranial nerves appear to be grossly intact. She has no focal deficits. SKIN: Warm and dry. PSYCHIATRIC: Normal affect and behavior. LABORATORY DATA: White count 8.4, hemoglobin 7.6, and platelets 230. Sodium 139, potassium 4.7, chloride 107, CO2 is 23, BUN 21, creatinine 1.1, glucose 126. Stool for occult blood is positive. BNP 1182. Troponin 0.389 and subsequent 0.44. D-dimer was 0.73. CTA of the chest negative. Chest x-ray, mild pulmonary vascular prominence with no focal consolidations. EKG, left bundle branch block with PACs. IMPRESSION AND PLAN: 1. Chest pain in a patient with a history of coronary artery disease, who apparently just had a positive stress test and now has mild elevation of troponins. This is occurring in the setting of some new onset anemia, which could represent some demand ischemia or may represent [id number] elevation myocardial infarction. Consult Cardiology for further assessment. 2. Anemia. The patient has new onset anemia. Her hemoglobin on June 29 was 10. Therefore, this represents a significant change. She has had no gastrointestinal symptoms relative to this. However, she does have a positive occult blood in the stool. We will consult GI and discus with Dr. Jennings, certainly need to manage this in the context of her cardiac situation. We will perform anemia panel. 3. Heme-positive stools. Consult with GI. 4. Diabetes mellitus. Hold on her long-acting insulin and give her a sliding scale coverage only for now. 5. History of atrial fibrillation, holding the Eliquis now due to the presence of gastrointestinal bleed. 6. Diastolic heart failure, appears to be relatively well compensated. 7. Chronic kidney disease, stage 3. The patient has received some contrast with CT scan. We will need to continue to monitor her levels. Job ID: [id number]
[2018-08-06 18:42] LABS: Troponin I 0.465 ng/mL (< 0.028)
[2018-08-06 18:47] LABS: Transferrin, Serum 356 mg/dL (173-360)
[2018-08-06 18:48] LABS: Iron 17 ug/dL (50-170); Iron Binding Capacity, Total 445 mcg/dL (265-497)
[2018-08-06] MEDS: PROVENTIL INHALER 6.7 G (200 INHALATIONS) INH SCH ×2 (19:02→23:32)
[2018-08-06] MEDS: Mometasone/Formoterol 120 PUFF INHALER INH SCH (19:04)
[2018-08-06] MEDS: Atorvastatin Calcium 10 MG TAB PO SCH (20:26)
[2018-08-06] MEDS: Fish Oil 1,000 MG CAP PO SCH (20:26)
[2018-08-06] MEDS: Montelukast Sodium 10 mg Tablet PO SCH (20:27)
[2018-08-06] MEDS: Pregabalin 75 MG CAP PO SCH (20:27)
[2018-08-06] MEDS ORDERED: Furosemide 40 MG/4 ML VIAL SLOW IVP SCH (21:00)
[2018-08-06 21:21] LABS: Hemoglobin 7.7 g/dL (12.0-16.0); Platelet Count 227 thou/uL (130-400)
[2018-08-07] MEDS: HYDROcodone/Acetaminophen 5/325 mg Tablet PO PRN ×2 (00:03→23:55)
--- NOTE | 2018-08-07 02:09 | CON ---
DATE OF CONSULTATION: 08/06/2018 REASON FOR CONSULTATION: Anemia of unknown origin. CONSULTING PHYSICIAN: Thang Dawn MD. HISTORY OF PRESENT ILLNESS: The patient is a 73-year-old female with past medical history of diabetes, hyperlipidemia, hypertension, osteoarthritis, asthma, atrial fibrillation, on chronic anticoagulation, congestive heart failure and peripheral neuropathy, presenting with increased weakness and shortness of breath. Per the patient and per the patient's daughter, she had been exhibiting increased shortness of breath and weakness that had been progressively getting worse over the last 3 months since [place] along with increased lower extremity cramping. She was recently evaluated by her primary operations asst who did a PET stress scan, which did show some concerning findings (see cardiology consultation note). However, she did develop some increased chest pain this last Thursday, which prompted her to see her PCP who then reviewed the cardiology records from the stress test and prompted her to seek healthcare admission at the ER. While in the ER, she underwent evaluation, which did not show any EKG changes, but was noted to have a significant anemia as well as an increase in her troponins concerning for possible underlying cardiac abnormality versus demand ischemia from significant anemia. Upon questioning the patient this evening, she denies any episodes of hematemesis, melena, hematochezia, or increased bleeding while on her full anticoagulation. She has never had a colonoscopy before and did have an EGD greater than 10 years ago with the findings of a hiatal hernia that was "nonoperable." She is currently having approximately 1 bowel movement per day that is solid in consistency and not indicative of change in her bowel habits. However, she does endorse a 10 pound weight loss over the last 3 months that was unintentional. Currently denies any nausea, vomiting, fevers, chills, abdominal pain, GI bleeding, dysphagia, odynophagia. REVIEW OF SYSTEMS: A 10-category review of systems was obtained with all responses negative except for the pertinent positives as listed in the HPI. PAST MEDICAL HISTORY: As per HPI. PAST SURGICAL HISTORY: Hysterectomy, tonsillectomy, CABG with 4 vessel bypass, peripheral vascular disease and bilateral carotid endarterectomy. FAMILY HISTORY: The patient states that her father was diagnosed with colon cancer, most likely diagnosed in his late 60s or early 70s. SOCIAL HISTORY: Denies any tobacco, alcohol, or illicit drug use. OUTPATIENT MEDICATIONS: Reviewed. ALLERGIES: PENICILLIN AND LACTOSE. PHYSICAL EXAMINATION: VITAL SIGNS: Temperature 97.6, pulse 84, blood pressure 152/65, respiratory rate 16, saturating 96% on room air. GENERAL: The patient was lying in bed, in no acute distress. Alert and oriented x4. HEENT: Normocephalic, atraumatic. No scleral icterus noted. CARDIOVASCULAR: Regular rate and rhythm with a 3/6 systolic murmur best heard at the right upper sternal border. No discernible gallops. RESPIRATORY: Clear to auscultation bilaterally, but decreased inspiratory effort noted. ABDOMEN: Normoactive bowel sounds. Soft, nontender, nondistended. EXTREMITIES: No cyanosis, clubbing, or edema. LABORATORY DATA: CBC with a white blood cell count of 8.4, hemoglobin 7.9, hematocrit 26.1, platelets 251. Chemistry with a sodium of 139, potassium 4.7, chloride 107, CO2 of 23, BUN 21, creatinine 1.1, glucose 126. AST 28, ALT 20, alkaline phosphatase 60, total bilirubin 1.0. Creatine kinase 365, troponin 0.438. BNP 1182, iron 17, ferritin 28, TIBC 445 with a percent saturation of 4%. FOBT positive. IMAGING DATA: CT of the chest/CT angio obtained on August 06, 2018, showed an enlarged right peritracheal lymph node measuring 1.5 x 1.4 cm, but there was no significant hilar mass or other lymphadenopathy. There was no evidence of aneurysm or dissection of the aorta and there was no filling defect to suggest pulmonary embolism within the lungs. ASSESSMENT AND PLAN: The patient is a 73-year-old female with past medical history of diabetes, hyperlipidemia, hypertension, osteoarthritis, asthma, atrial fibrillation on anticoagulation, congestive heart failure, peripheral neuropathy, presenting with significant anemia. Anemia of unknown origin. The patient is presenting with a 3 month history of progressively worsening shortness of breath and weakness especially with exertion, which was initially concerning for cardiac abnormality. She was ultimately evaluated by her outpatient operations asst and noted to have an abnormal stress test. With increased chest pain within the last week, this prompted her to seek healthcare assistance at the [facility] ER where she was noted to have a significant anemia along with increased troponins concerning for either demand ischemia versus an underlying cardiac abnormality. At the current time, she denies any episodes of overt gastrointestinal bleeding. However, upon evaluation of her iron indices, it is more consistent with an iron deficiency anemia and could be reflective of a chronic gastrointestinal bleed. The differential could include esophagitis, gastritis, Trey's ulcerations with a hiatal hernia (more likely), arteriovenous malformation, Dieulafoy lesion, adverse effect of chronic anticoagulation and/or gastrointestinal neoplasm (especially with never having had a colonoscopy before and a family history of colon cancer). However, workup for this anemia of unknown origin is a bit complicated and that she is exhibiting increased troponins, which could be indicative of an underlying cardiac abnormality in which case that would take priority over determination of this anemia and placing her at increased risk for complications with sedation for the procedures. RECOMMENDATIONS: 1. We would continue to trend H and H and transfuse as necessary to maintain an H and H of 7. 2. We would consider a higher H and H in this particular patient given her significant cardiac history. 3. Continue to monitor clinically for signs of active GI bleeding. 4. We would avoid anticoagulation, if possible except upon cardiology service recommendations. 5. Agree with infusion of blood and determination of troponins afterwards, which could help rule out demand ischemia. 6. We will hold both EGD and colonoscopy for now until a better understanding of what her cardiac status is. 7. We will continue to follow. Please call with any questions. Job ID: [id number]
[2018-08-07 06:52] LABS: #Eosinphils 0.1 thou/uL (0.0-0.7); #Lymphocytes 0.8 thou/uL (1.20-3.40); #Monocytes 0.6 thou/uL (0.11-0.59); #Neutrophils 4.6 thou/uL (1.40-6.50); %Basophils 0.7 % (0.0-1.0); %Eosinophils 1.2 % (0.0-10.0); %Lymphocytes 13.4 % (21.0-51.0); %Monocytes 9.5 % (0.0-10.0); %Neutrophils 75.3 % (42.0-75.0); Hemoglobin 8.6 g/dL (12.0-16.0); Mean Corpuscular Hemoglobin 24.2 pg (27.0-31.0); Mean Platelet Volume 8.4 fL (7.4-10.4); Platelet Count 229 thou/uL (130-400); RBC Distribution Width 19.3 % (11.5-14.5); Red Blood Cell (RBC) Count 3.54 mill/uL (4.20-5.40); White Blood Cell (WBC) Count 6.1 thou/uL (4.8-10.8)
[2018-08-07 07:12] LABS: Anion Gap 15 mmol/L (10-20); BUN (Urea Nitrogen) 26 mg/dL (9.8-20.1); Calc. Creatinine Clearance 51 mL/min (70-130); Calcium 9.1 mg/dL (7.8-10.44); Carbon Dioxide 22 mmol/L (23-31); Chloride 107 mmol/L (98-107); Estimated GFR-MDRD 34; Glucose 113 mg/dL (83-110); Potassium 4.2 mmol/L (3.5-5.1); Sodium 140 mmol/L (136-145)
[2018-08-07 07:38] LABS: CKMB 4.2 ng/mL (0-6.6)
[2018-08-07] MEDS: PROVENTIL INHALER 6.7 G (200 INHALATIONS) INH SCH ×4 (07:51→23:26)
[2018-08-07] MEDS: Mometasone/Formoterol 120 PUFF INHALER INH SCH ×2 (07:54→19:01)
[2018-08-07] MEDS: Fish Oil 1,000 MG CAP PO SCH ×2 (08:24→20:40)
[2018-08-07] MEDS: Dronedarone HCl 400 MG TAB PO SCH ×2 (08:24→16:34)
[2018-08-07] MEDS: Aspirin Chewable 81 MG TAB PO SCH (08:24)
[2018-08-07] MEDS: FLUoxetine HCl 20 MG CAP PO SCH (08:24)
[2018-08-07] MEDS ORDERED: Dextrose 5% in Water 1,000 ML IV PRN (08:51)
[2018-08-07] MEDS ORDERED: Insulin Regular 300 UNITS/3 ML VIAL SC PRN (08:51)
[2018-08-07] MEDS ORDERED: Dextrose 50% Abboject 50 ML SYRINGE SLOW IVP PRN (08:51)
[2018-08-07] MEDS ORDERED: Non-Formulary Item 1 EACH (Omega-3 Fatty Acids/Fish Oil [Omega 3 1,000 Mg Softgel] 1 CAP) PO SCH (09:00)
[2018-08-07] MEDS ORDERED: Furosemide 20 MG TAB PO SCH (09:00)
[2018-08-07] MEDS: Insulin Regular 300 UNITS/3 ML VIAL SC PRN (12:38)
[2018-08-07] MEDS ORDERED: Furosemide 100 MG/10 ML VIAL SLOW IVP SCH (13:15)
[2018-08-07] MEDS: Furosemide 40 MG/4 ML VIAL SLOW IVP SCH (13:54)
--- NOTE | 2018-08-07 14:19 | PDOC.PN ---
- Subjective Encounter Start Date: 08/07/18 Encounter Start Time: 14:17 Subjective: feels better.family at bedside -: denies any CP/SOB/dizziness.no BRB -ID no melena -: no abd pain - Objective MAR Reviewed: Yes Vital Signs & Weight: Vital Signs (12 hours) Temp Pulse Resp BP Pulse Ox 08/07/18 12:30 97.8 F 52 L 16 141/58 H 100 08/07/18 08:24 18 95 08/07/18 08:23 97.1 F L 54 L 16 108/60 87 L 08/07/18 07:54 58 L 12 91 L 08/07/18 07:51 58 L 12 08/07/18 04:00 97.9 F 62 20 129/58 L 95 Weight Weight 206 lb 12.8 oz I&O: 08/06/18 08/07/18 08/08/18 06:59 06:59 06:59 Intake Total 950 Output Total 350 Balance 600 Result Diagrams: 08/07/18 06:06 08/07/18 06:06 Additional Labs: Accuchecks 08/07/18 08/07/18 08/06/18 10:37 05:47 20:31 POC Glucose 191 H 137 H 175 H 08/06/18 17:24 POC Glucose 126 H Microbiology 08/06/18 12:23 Stool - Pending Stool Occult Blood (KEN) - Final 08/06/18 13:25 Urine voided Urine Culture - Preliminary NO GROWTH AT 12 HOURS Laboratory Tests 06/29/18 06/29/18 08/06/18 10:58 10:58 11:38 Hgb 10.0 L Creatinine 1.28 H Troponin I 0.389 H* 08/06/18 08/06/18 08/06/18 11:38 11:38 14:39 Hgb 7.6 L Creatinine 1.10 Troponin I 0.438 H* 08/06/18 08/06/18 08/06/18 15:21 18:02 21:07 Hgb 7.9 L 7.7 L Creatinine Troponin I 0.465 H* 08/07/18 08/07/18 08/07/18 06:06 06:06 06:06 Hgb 8.6 L Creatinine 1.49 H Troponin I 0.359 H* Phys Exam - Physical Examination Constitutional: NAD pale HEENT: PERRLA, moist MMs, sclera anicteric, oral pharynx no lesions Neck: no nodes, no JVD, supple, full ROM Respiratory: no wheezing, no rales, no rhonchi, clear to auscultation bilateral Cardiovascular: RRR, no significant murmur, no rub, gallop, irregular Gastrointestinal: soft, non-tender, no distention, positive bowel sounds Musculoskeletal: no edema, pulses present Neurological: non-focal, normal sensation, moves all 4 limbs Psychiatric: normal affect, A&O x 3 Skin: no rash Dx/Plan (1) Acute on chronic anemia Code(s): D64.9 - ANEMIA, UNSPECIFIED Status: Acute (2) NSTEMI (non-ST elevated myocardial infarction) Code(s): I21.4 - NON-ST ELEVATION (NSTEMI) MYOCARDIAL INFARCTION Status: Chronic Comment: Suspect demand ischemia.on cardio-prudent meds (3) ALISHA (acute kidney injury) Code(s): N17.9 - ACUTE KIDNEY FAILURE, UNSPECIFIED Status: Acute (4) Acute on chronic combined systolic and diastolic CHF, NYHA class 4 Code(s): I50.43 - ACUTE ON CHRONIC COMBINED SYSTOLIC AND DIASTOLIC HRT FAIL Status: Acute (5) CAD (coronary artery disease) Code(s): I25.10 - ATHSCL HEART DISEASE OF [place] CORONARY ARTERY W/O ANG PCTRS Status: Chronic Qualifiers: Comment: chronic and stable (6) Chronic kidney disease, stage 2 (mild) Code(s): N18.2 - CHRONIC KIDNEY DISEASE, STAGE 2 (MILD) Status: Chronic (7) DM type 2 (diabetes mellitus, type 2) Status: Chronic Qualifiers: (8) Dyslipidemia Code(s): E78.5 - HYPERLIPIDEMIA, UNSPECIFIED Status: Chronic (9) HTN (hypertension) Code(s): I10 - ESSENTIAL (PRIMARY) HYPERTENSION Status: Chronic Qualifiers: (10) Paroxysmal a-fib Code(s): I48.0 - PAROXYSMAL ATRIAL FIBRILLATION Status: Chronic Comment: on multaq.Eliquis on hold due to Ac Anemia - Plan plan discussed w/ family, DVT proph w/SCDs H/H stable.EGD/Colonoscopy tomorrow per pt -: monitor labs -: cont meds as below.HD stable.no active bleed -: Diurese.troponin trending down.on ASA,statin,BB.no GALDINO-I/ARB d/t alisha -: am labs * . Review of Systems - Review of Systems Constitutional: weakness. negative: fever, chills, sweats, malaise, other ENT: negative: Ear Pain, Ear Discharge, Nose Pain, Nose Discharge, Nose Congestion, Mouth Pain, Mouth Swelling, Throat Pain, Throat Swelling, Other Respiratory: negative: Cough, Dry, Shortness of Breath, Hemoptysis, SOB with Excertion, Pleuritic Pain, Sputum, Wheezing Cardiovascular: negative: chest pain, palpitations, orthopnea, paroxysmal nocturnal dyspnea, edema, light headedness, other Gastrointestinal: negative: Nausea, Vomiting, Abdominal Pain, Diarrhea, Constipation, Melena, Hematochezia, Other Genitourinary: negative: Dysuria, Frequency, Incontinence, Hematuria, Retention , Other Musculoskeletal: negative: Neck Pain, Shoulder Pain, Arm Pain, Back Pain, Hand Pain, Leg Pain, Foot Pain, Other Neurological: negative: Weakness, Numbness, Incoordination, Change in Speech, Confusion, Seizures, Other - Medications/Allergies Allergies/Adverse Reactions: Allergies Allergy/AdvReac Type Severity Reaction Status Date / Time Penicillins Allergy Intermediate Verified 08/06/18 15:12 lactose Allergy Verified 08/06/18 15:12 Medications: Current Medications Acetaminophen (Tylenol) 650 mg PO Q4H PRN PRN Reason: Headache/Fever/Mild Pain (1-3) Last Admin: 08/06/18 20:28 Dose: 650 mg Hydrocodone Bitart/Acetaminophen ([place] 5/325) 1 tab PO Q4H PRN PRN Reason: Moderate Pain (4-6) Hydrocodone Bitart/Acetaminophen ([place] 5/325) 2 tab PO Q4H PRN PRN Reason: Severe Pain (7-10) Last Admin: 08/07/18 00:03 Dose: 2 tab Albuterol Sulfate (Proventil Hfa) 2 puff INH [id number] [facility] Last Admin: 08/07/18 07:51 Dose: 2 puff Aspirin (Aspirin Chewable) 81 mg PO DAILY [facility] Last Admin: 08/07/18 08:24 Dose: 81 mg Atorvastatin Calcium (Lipitor) 10 mg PO HS [facility] Last Admin: 08/06/18 20:26 Dose: 10 mg Dextrose/Water (Dextrose 50%) 25 gm SLOW IVP PRN PRN PRN Reason: Hypoglycemia Dronedarone (Multaq) 400 mg PO BID-WM [facility] Last Admin: 08/07/18 08:24 Dose: 400 mg Fish Oil (Fish Oil) 1,000 mg PO BID [facility] Last Admin: 08/07/18 08:24 Dose: 1,000 mg Fluoxetine HCl (Prozac) 40 mg PO DAILY [facility] Last Admin: 08/07/18 08:24 Dose: 40 mg Fluticasone Propionate (Flonase Nasal [place]) 0 gm NASAL PRN PRN PRN Reason: Congestion Furosemide (Lasix) 80 mg SLOW IVP NOW [facility] Stop: 08/07/18 15:15 Last Admin: 08/07/18 13:54 Dose: 80 mg Furosemide (Lasix) 40 mg SLOW IVP 0600,1400 [facility] Last Admin: 08/07/18 13:54 Dose: 40 mg Glucagon (Glucagon) 1 mg IM PRN PRN PRN Reason: Hypoglycemia Dextrose/Water (D5w) 1,000 mls @ 0 mls/hr IV .Q0M PRN PRN Reason: Hypoglycemia Insulin Human Regular (Humulin R) 0 units SC .MODERATE SLIDING SC PRN PRN Reason: Moderate Correctional Scale Last Admin: 08/07/18 12:38 Dose: 2 units Insulin Human Regular (Humulin R) 0 units SC .BEDTIME SLIDING SC PRN PRN Reason: Bedtime Correctional Scale Metoprolol Succinate (Toprol Xl) 12.5 mg PO QPM [facility] Last Admin: 08/06/18 20:27 Dose: 12.5 mg Mometasone Furoate/Formoterol Fumar (Dulera 200 Mcg/5 Mcg Inhaler) 2 puff INH BID-RT [facility] Last Admin: 08/07/18 07:54 Dose: 2 puff Montelukast Sodium (Singulair) 10 mg PO QPM [facility] Last Admin: 08/06/18 20:27 Dose: 10 mg Pregabalin (Lyrica) 300 mg PO HS [facility] Last Admin: 08/06/18 20:27 Dose: 300 mg
--- NOTE | 2018-08-07 15:57 | PDOC.CTH ---
Cardiology Progress Note - Subjective She is doing well. She is a little more short winded today. She had a unit of blood yesterday and her Hgb is higher by a the expected unit. Had to be started on O2. - Objective Vital Signs Temp Pulse Resp BP Pulse Ox 08/07/18 14:26 52 L 12 08/07/18 12:30 97.8 F 52 L 16 141/58 H 100 08/07/18 08:24 18 95 08/07/18 08:23 97.1 F L 54 L 16 108/60 87 L 08/07/18 07:54 58 L 12 91 L 08/07/18 07:51 58 L 12 08/07/18 04:00 97.9 F 62 20 129/58 L 95 Weight 206 lb 12.8 oz 08/06/18 08/07/18 08/08/18 06:59 06:59 06:59 Intake Total 950 Output Total 350 Balance 600 - Physical Examination General/Neuro: alert & oriented x3, NAD Neck: no JVD present Lungs: unlabored respirations Heart: RRR Abdomen: NT/ND Extremities: + edema B (trace) - Telemetry Telemetry Rhythm: NSR - Labs Result Diagrams: 08/07/18 06:06 08/07/18 06:06 Troponin/CKMB CK-MB (CK-2) 4.2 ng/mL (0-6.6) 08/07/18 06:06 Troponin I 0.359 ng/mL (< 0.028) H* 08/07/18 06:06 - Assessment/Plan 1. Acute on chronic diastolic CHF 2. Anemia, possible GI in origin. 3. NSTEMI, demand ischemia likely given troponin trend. PLAN: - Will start diuresing today. - Will wait to start prep for colonoscopy until more euvolemic. - Will follow.
--- NOTE | 2018-08-07 16:15 | PRG ---
DATE OF SERVICE: 08/07/2018 REASON FOR CONSULTATION: Anemia of unknown origin. SUBJECTIVE: Overnight, the patient did not have any acute events or problems. She was given approximately 1 unit of PRBCs and responded well to treatment with improved shortness of breath and weakness when compared to admission. Currently, she denies any nausea, vomiting, fevers, chills, abdominal pain, hematemesis, melena, hematochezia, dysphagia, or odynophagia. She did have one bowel movement this morning that was "normal." OBJECTIVE: VITAL SIGNS: Temperature 97.8, pulse 52, blood pressure 141/58, respiratory rate 12, saturating 100% on 2 L nasal cannula (however, she did experience mild hypoxia this morning with oxygen saturations of 87% on 3 L nasal cannula). GENERAL: The patient was sitting at bedside, in no acute distress. Alert and oriented x4. CARDIOVASCULAR: Regular rate and rhythm. RESPIRATORY: Clear to auscultation bilaterally, but decreased inspiratory effort noted. ABDOMEN: Normoactive bowel sounds. Soft, nontender, nondistended. EXTREMITIES: No cyanosis, clubbing, or edema. LABORATORY DATA: CBC with a white blood cell count of 6.1, hemoglobin 8.6, hematocrit 27.6, platelets 229. Chemistry with a sodium of 140, potassium 4.2, chloride 107, CO2 of 22, BUN 26, creatinine 1.49, glucose 113. Troponin 0.359. IMAGING DATA: No current GI imaging is available for review. ASSESSMENT AND PLAN: The patient is a 73-year-old female with past medical history of diabetes, hyperlipidemia, hypertension, osteoarthritis, asthma, atrial fibrillation on anticoagulation, congestive heart failure, and peripheral neuropathy, presenting with significant anemia of unknown origin. Anemia of unknown origin. The patient is presenting with 3 months history of progressively worsening shortness of breath and weakness on exertion, and upon evaluation in the [facility] ER, she was noted to have a significant anemia. At this time, she does not endorse any episodes of overt gastrointestinal bleeding with no discernible etiology for her anemia at this time. Given the review of her current blood work, it is more consistent with an iron deficiency anemia and could be reflective of a chronic gastrointestinal bleed. Given her downtrending troponins, the most likely source of her troponinosis would be related to demand ischemia and decreased blood volume and oxygen carrying capacity. However, with the infusion of fluids and blood product, she did experience mild hypoxia this morning and may need some diuresis prior to instrumentation. RECOMMENDATIONS: 1. Would continue to trend H and H and transfuse as necessary to maintain an H and H of 7/. 2. We will continue to monitor clinically for signs of active GI bleeding. 3. Would avoid anticoagulation, except upon Cardiology service recommendations. 4. Would defer to Cardiology service for diuretic management and evaluation of the patient for euvolemia prior to EGD or colonoscopy. 5. We will hold on both EGD and colonoscopy for now until improvement of her respiratory/cardiac status. We will continue to follow. Please call with any questions. Job ID: [id number]
[2018-08-07] MEDS ORDERED: GoLYTELY 4,000 ml Bottle PO SCH (18:00)
[2018-08-07] MEDS: Montelukast Sodium 10 mg Tablet PO SCH (20:38)
[2018-08-07] MEDS: Pregabalin 75 MG CAP PO SCH (20:38)
[2018-08-07] MEDS: Atorvastatin Calcium 10 MG TAB PO SCH (20:40)
[2018-08-08] MEDS: Furosemide 40 MG/4 ML VIAL SLOW IVP SCH ×2 (06:01→14:15)
[2018-08-08] MEDS: PROVENTIL INHALER 6.7 G (200 INHALATIONS) INH SCH ×3 (07:35→18:57)
[2018-08-08] MEDS: Mometasone/Formoterol 120 PUFF INHALER INH SCH ×2 (07:38→19:01)
[2018-08-08 08:50] LABS: Hemoglobin 8.8 g/dL (12.0-16.0)
[2018-08-08 09:05] LABS: Anion Gap 14 mmol/L (10-20); BUN (Urea Nitrogen) 26 mg/dL (9.8-20.1); Calc. Creatinine Clearance 54 mL/min (70-130); Carbon Dioxide 24 mmol/L (23-31); Chloride 103 mmol/L (98-107); Estimated GFR-MDRD 36; Glucose 111 mg/dL (83-110); Potassium 4.2 mmol/L (3.5-5.1); Sodium 137 mmol/L (136-145)
[2018-08-08] MEDS: FLUoxetine HCl 20 MG CAP PO SCH (09:30)
[2018-08-08] MEDS: Dronedarone HCl 400 MG TAB PO SCH ×2 (09:30→17:48)
[2018-08-08] MEDS: Fish Oil 1,000 MG CAP PO SCH ×2 (09:30→21:22)
[2018-08-08] MEDS: Aspirin Chewable 81 MG TAB PO SCH (09:30)
--- NOTE | 2018-08-08 12:49 | PDOC.PN ---
- Subjective Encounter Start Date: 08/08/18 Encounter Start Time: 12:47 Subjective: feels much better.some breathing trouble yesterday but better today - Objective MAR Reviewed: Yes Vital Signs & Weight: Vital Signs (12 hours) Temp Pulse Resp BP Pulse Ox 08/08/18 08:00 97.6 F 56 L 18 141/61 H 08/08/18 07:38 57 L 12 08/08/18 07:35 57 L 12 08/08/18 04:00 97.3 F L 62 18 148/57 H 95 Weight Admit Weight 206 lb 12.8 oz Weight 210 lb 4 oz I&O: 08/07/18 08/08/18 08/09/18 06:59 06:59 06:59 Intake Total 950 1494 240 Output Total 350 1550 Balance 600 -56 240 Result Diagrams: 08/08/18 08:39 08/08/18 08:39 Additional Labs: Accuchecks 08/08/18 08/08/18 08/07/18 10:45 05:41 20:49 POC Glucose 215 H 125 H 261 H 08/07/18 16:46 POC Glucose 158 H Microbiology 08/06/18 13:25 Urine voided Urine Culture - Final Laboratory Tests 08/06/18 08/06/18 08/06/18 11:38 11:38 11:38 Hgb 7.6 L Creatinine 1.10 Troponin I 0.389 H* B-Natriuretic Peptide 08/06/18 08/06/18 08/06/18 11:38 14:39 15:21 Hgb 7.9 L Creatinine Troponin I 0.438 H* B-Natriuretic Peptide 1182.4 H 08/06/18 08/06/18 08/07/18 18:02 21:07 06:06 Hgb 7.7 L Creatinine 1.49 H Troponin I 0.465 H* B-Natriuretic Peptide 08/07/18 08/07/18 08/08/18 06:06 06:06 08:39 Hgb 8.6 L 8.8 L Creatinine Troponin I 0.359 H* B-Natriuretic Peptide 08/08/18 08/08/18 08:39 08:39 Hgb Creatinine 1.42 H Troponin I 0.241 H B-Natriuretic Peptide Phys Exam - Physical Examination Constitutional: NAD HEENT: PERRLA, moist MMs, sclera anicteric, oral pharynx no lesions Neck: no nodes, no JVD, supple, full ROM Respiratory: no wheezing, no rales, no rhonchi, clear to auscultation bilateral Cardiovascular: RRR, no significant murmur, no rub Gastrointestinal: soft, non-tender, no distention, positive bowel sounds Musculoskeletal: no edema, pulses present Neurological: non-focal, normal sensation, moves all 4 limbs Psychiatric: normal affect, A&O x 3 Skin: no rash Dx/Plan (1) Acute on chronic anemia Code(s): D64.9 - ANEMIA, UNSPECIFIED Status: Acute Comment: Eliquis on hold with suspicion of occult/slow GIB (2) NSTEMI (non-ST elevated myocardial infarction) Code(s): I21.4 - NON-ST ELEVATION (NSTEMI) MYOCARDIAL INFARCTION Status: Chronic Comment: Suspect demand ischemia.on cardio-prudent meds (3) ALISHA (acute kidney injury) Code(s): N17.9 - ACUTE KIDNEY FAILURE, UNSPECIFIED Status: Acute (4) Acute on chronic combined systolic and diastolic CHF, NYHA class 4 Code(s): I50.43 - ACUTE ON CHRONIC COMBINED SYSTOLIC AND DIASTOLIC HRT FAIL Status: Acute (5) CAD (coronary artery disease) Code(s): I25.10 - ATHSCL HEART DISEASE OF [place] CORONARY ARTERY W/O ANG PCTRS Status: Chronic Qualifiers: Comment: chronic and stable (6) Chronic kidney disease, stage 2 (mild) Code(s): N18.2 - CHRONIC KIDNEY DISEASE, STAGE 2 (MILD) Status: Chronic (7) DM type 2 (diabetes mellitus, type 2) Status: Chronic Qualifiers: (8) Dyslipidemia Code(s): E78.5 - HYPERLIPIDEMIA, UNSPECIFIED Status: Chronic (9) HTN (hypertension) Code(s): I10 - ESSENTIAL (PRIMARY) HYPERTENSION Status: Chronic Qualifiers: (10) Paroxysmal a-fib Code(s): I48.0 - PAROXYSMAL ATRIAL FIBRILLATION Status: Chronic Comment: on multaq.Eliquis on hold due to Ac Anemia (11) Moderate mitral stenosis Code(s): I05.0 - RHEUMATIC MITRAL STENOSIS Status: Acute (12) Moderate mitral stenosis by prior echocardiogram Code(s): I05.0 - RHEUMATIC MITRAL STENOSIS Status: Chronic Comment: ECHO 2018 (13) Moderate aortic stenosis by prior echocardiogram Code(s): I35.0 - NONRHEUMATIC AORTIC (VALVE) STENOSIS Status: Chronic Comment: ECHO 06/2018 - Plan DVT proph w/SCDs cont diuresis.Clinically better -: troponin trending down-suspect Demand ischemia -: H/H stable. EGD?colonoscope soon when ok w GI -: cont home meds as below.strict I/Os. -: urine cx negative so far.follow.no indication for Abx for now * . Review of Systems - Review of Systems Constitutional: weakness, malaise. negative: fever, chills, sweats, other Respiratory: SOB with Excertion. negative: Cough, Dry, Shortness of Breath, Hemoptysis, Pleuritic Pain, Sputum, Wheezing Cardiovascular: negative: chest pain, palpitations, orthopnea, paroxysmal nocturnal dyspnea, edema, light headedness, other Gastrointestinal: negative: Nausea, Vomiting, Abdominal Pain, Diarrhea, Constipation, Melena, Hematochezia, Other Genitourinary: negative: Dysuria, Frequency, Incontinence, Hematuria, Retention , Other Musculoskeletal: negative: Neck Pain, Shoulder Pain, Arm Pain, Back Pain, Hand Pain, Leg Pain, Foot Pain, Other Skin: negative: Rash, Lesions, Sp, Bruising, Other Neurological: negative: Weakness, Numbness, Incoordination, Change in Speech, Confusion, Seizures, Other - Medications/Allergies Allergies/Adverse Reactions: Allergies Allergy/AdvReac Type Severity Reaction Status Date / Time Penicillins Allergy Intermediate Verified 08/06/18 15:12 lactose Allergy Verified 08/06/18 15:12 Medications: Current Medications Acetaminophen (Tylenol) 650 mg PO Q4H PRN PRN Reason: Headache/Fever/Mild Pain (1-3) Last Admin: 08/06/18 20:28 Dose: 650 mg Hydrocodone Bitart/Acetaminophen ([place] 5/325) 1 tab PO Q4H PRN PRN Reason: Moderate Pain (4-6) Last Admin: 08/07/18 23:55 Dose: 1 tab Hydrocodone Bitart/Acetaminophen ([place] 5/325) 2 tab PO Q4H PRN PRN Reason: Severe Pain (7-10) Last Admin: 08/07/18 00:03 Dose: 2 tab Albuterol Sulfate (Proventil Hfa) 2 puff INH [id number] [facility] Last Admin: 08/08/18 07:35 Dose: 2 puff Aspirin (Aspirin Chewable) 81 mg PO DAILY [facility] Last Admin: 08/08/18 09:30 Dose: 81 mg Atorvastatin Calcium (Lipitor) 10 mg PO HS [facility] Last Admin: 08/07/18 20:40 Dose: 10 mg Dextrose/Water (Dextrose 50%) 25 gm SLOW IVP PRN PRN PRN Reason: Hypoglycemia Dronedarone (Multaq) 400 mg PO BID-WM [facility] Last Admin: 08/08/18 09:30 Dose: 400 mg Fish Oil (Fish Oil) 1,000 mg PO BID [facility] Last Admin: 08/08/18 09:30 Dose: 1,000 mg Fluoxetine HCl (Prozac) 40 mg PO DAILY [facility] Last Admin: 08/08/18 09:30 Dose: 40 mg Fluticasone Propionate (Flonase Nasal [place]) 0 gm NASAL PRN PRN PRN Reason: Congestion Furosemide (Lasix) 40 mg SLOW IVP 0600,1400 [facility] Last Admin: 08/08/18 06:01 Dose: 40 mg Glucagon (Glucagon) 1 mg IM PRN PRN PRN Reason: Hypoglycemia Dextrose/Water (D5w) 1,000 mls @ 0 mls/hr IV .Q0M PRN PRN Reason: Hypoglycemia Insulin Human Regular (Humulin R) 0 units SC .MODERATE SLIDING SC PRN PRN Reason: Moderate Correctional Scale Last Admin: 08/07/18 12:38 Dose: 2 units Insulin Human Regular (Humulin R) 0 units SC .BEDTIME SLIDING SC PRN PRN Reason: Bedtime Correctional Scale Last Admin: 08/07/18 20:52 Dose: 3 unit Metoprolol Succinate (Toprol Xl) 12.5 mg PO QPM [facility] Last Admin: 08/07/18 20:40 Dose: 12.5 mg Mometasone Furoate/Formoterol Fumar (Dulera 200 Mcg/5 Mcg Inhaler) 2 puff INH BID-RT [facility] Last Admin: 08/08/18 07:38 Dose: 2 puff Montelukast Sodium (Singulair) 10 mg PO QPM [facility] Last Admin: 08/07/18 20:38 Dose: 10 mg Pregabalin (Lyrica) 300 mg PO HS [facility] Last Admin: 08/07/18 20:38 Dose: 300 mg
[2018-08-08] MEDS: Insulin Regular 300 UNITS/3 ML VIAL SC PRN (14:16)
--- NOTE | 2018-08-08 17:23 | PDOC.CTH ---
Cardiology Progress Note - Subjective She is dong better. She diuresed well yesterday. - Objective Vital Signs Temp Pulse Resp BP BP Pulse Ox 08/08/18 14:14 57 L 12 08/08/18 14:08 97.4 F L 57 L 18 105/50 L 100 08/08/18 08:00 97.6 F 56 L 18 141/61 H 08/08/18 07:38 57 L 12 08/08/18 07:35 57 L 12 Admit Weight 206 lb 12.8 oz Weight 210 lb 4 oz 08/07/18 08/08/18 08/09/18 06:59 06:59 06:59 Intake Total 950 1494 480 Output Total 350 1550 Balance 600 -56 480 - Physical Examination General/Neuro: alert & oriented x3, NAD Neck: no JVD present Lungs: unlabored respirations Heart: RRR Abdomen: NT/ND Extremities: + edema B (1+, improved.) - Telemetry Telemetry Rhythm: NSR - Labs Result Diagrams: 08/08/18 08:39 08/08/18 08:39 Troponin/CKMB CK-MB (CK-2) 4.0 ng/mL (0-6.6) 08/08/18 08:39 Troponin I 0.241 ng/mL (< 0.028) H 08/08/18 08:39 - Assessment/Plan 1. Acute on chronic diastolic CHF 2. Anemia, possible GI in origin. 3. NSTEMI, demand ischemia likely given troponin trend. PLAN: - Continue diureses today. - Likely will be OK to have prep tomorrow for endoscopic evaluation thursday. - Dr. Parisi to follow in the morning.
[2018-08-08] MEDS: Montelukast Sodium 10 mg Tablet PO SCH (21:21)
[2018-08-08] MEDS: Atorvastatin Calcium 10 MG TAB PO SCH (21:22)
[2018-08-08] MEDS: Pregabalin 75 MG CAP PO SCH (21:26)
--- NOTE | 2018-08-08 23:15 | PRG ---
DATE OF SERVICE: 08/08/2018 REASON FOR CONSULTATION: Anemia of unknown origin. SUBJECTIVE: The patient did well with no acute events or problems overnight. She has been responding well to diuretic management with increased urinary output during this admission. She was given approximately 1 unit of PRBC since this admission and states that her shortness of breath and weakness have improved significantly. Currently, she denies any nausea, vomiting, fevers, chills, abdominal pain, GI bleeding, dysphagia, or odynophagia. She did have one bowel movement today that was normal in consistency. OBJECTIVE: VITAL SIGNS: Temperature 97.8, pulse 58, blood pressure 142/63, respiratory rate 19, saturating 98% on 2 L nasal cannula. GENERAL: The patient was sitting in chair at bedside, in no acute distress. Alert and oriented x4. CARDIOVASCULAR: Regular rate and rhythm. RESPIRATORY: Clear to auscultation bilaterally but with decreased inspiratory effort. ABDOMEN: Normoactive bowel sounds. Soft, nontender, nondistended. EXTREMITIES: No cyanosis, clubbing, or edema. LABORATORY DATA: No current GI studies are available for review. IMAGING DATA: No current GI imaging is available for review. ASSESSMENT AND PLAN: The patient is a 73-year-old female with past medical history of diabetes, hyperlipidemia, hypertension, osteoarthritis, asthma; atrial fibrillation, on anticoagulation; congestive heart failure and peripheral neuropathy, presenting with anemia of unknown origin. Anemia of unknown origin: The patient is presenting with 3-month history of progressively worsening shortness of breath and weakness especially with exertion that prompted her to seek healthcare admission. On evaluation in the [place] [facility], she was noted to have a significant anemia, but denies any evidence or episodes of overt GI bleeding. At this point, her serologies are more consistent with an iron deficiency anemia and could be reflective of a chronic gastrointestinal bleed or malignant neoplasm within the GI tract itself. She is currently responding well to diuretic management and may be able to undergo both EGD and colonoscopy within the next 24 hours. RECOMMENDATIONS: 1. Would continue to trend H and H and transfuse as necessary to maintain an H and H of 7/21. 2. Continue to monitor clinically for signs of active GI bleeding. 3. Would avoid anticoagulation except on Cardiology Service recommendations. 4. We will defer to Cardiology Service for diuretic management and timing related to performing EGD and colonoscopy. 5. We will continue to hold EGD and colonoscopy secondary to improvement of her respiratory/cardiac status. We will continue to follow. Please call with any questions. Job ID: [id number]
[2018-08-08] MEDS: HYDROcodone/Acetaminophen 5/325 mg Tablet PO PRN (23:30)
[2018-08-09] MEDS: PROVENTIL INHALER 6.7 G (200 INHALATIONS) INH SCH ×4 (00:28→18:38)
[2018-08-09] MEDS: Furosemide 40 MG/4 ML VIAL SLOW IVP SCH ×2 (05:47→14:49)
[2018-08-09] MEDS: HYDROcodone/Acetaminophen 5/325 mg Tablet PO PRN ×2 (05:47→21:28)
[2018-08-09 06:56] LABS: Hemoglobin 8.5 g/dL (12.0-16.0)
[2018-08-09 07:07] LABS: Anion Gap 14 mmol/L (10-20); BUN (Urea Nitrogen) 25 mg/dL (9.8-20.1); Calc. Creatinine Clearance 50 mL/min (70-130); Calcium 8.9 mg/dL (7.8-10.44); Carbon Dioxide 27 mmol/L (23-31); Chloride 98 mmol/L (98-107); Estimated GFR-MDRD 35; Glucose 100 mg/dL (83-110); Potassium 4.3 mmol/L (3.5-5.1); Sodium 135 mmol/L (136-145)
[2018-08-09] MEDS: Mometasone/Formoterol 120 PUFF INHALER INH SCH ×2 (07:46→18:37)
[2018-08-09] MEDS: Dronedarone HCl 400 MG TAB PO SCH ×2 (08:55→17:50)
[2018-08-09] MEDS: FLUoxetine HCl 20 MG CAP PO SCH (08:55)
[2018-08-09] MEDS: Fish Oil 1,000 MG CAP PO SCH ×2 (08:55→20:50)
[2018-08-09] MEDS: Aspirin Chewable 81 MG TAB PO SCH (08:56)
--- NOTE | 2018-08-09 12:50 | PQF ---
CLINICAL DOCUMENTATION IMPROVEMENT CLARIFICATION FORM: ICD-10 Updated PLEASE DO AN ADDENDUM TO THE PROGRESS NOTE WITH ANY DOCUMENTATION UPDATES OR ADDITIONS AND CARRY THROUGH TO DC SUMMARY. THANK YOU. DATE: 08/09/2018 ATTN: Dr. De La Garza Please exercise your independent, professional judgment in responding to the clarification form. Clinical indicators are provided on the bottom of this form for your review Please check appropriate box(s): AMI TYPE: [ X ] NSTEMI due to Demand Ischemia (AMI Type II) [ ] Demand Ischemia without NH [ ] Other diagnosis [ ] Unable to determine In addition, please specify: Present on Admission (POA): [X ] Yes [ ] No [ ] Unable to determine CLINICAL INDICATORS - SIGNS / SYMPTOMS / LABS 08/06/2018 08/07/2018 PN 08/08(Frederic): Troponin I 0.389 @ 1138 Troponin I 0.359 0.438 @ 1439 0.465 @ 1802 Acute on chronic anemia. NSTEMI Troponin trending down - suspect Demand ischemia. H/H stable PN 08/08 (Ajay): CK-MB 4.0 Troponin I 0.241 NSTEMI, demand ischemia likely given troponin trend RISKS: H&P 08/06: Hx of CAD, DM, HTN, Atrial fib; PVD, diastolic CHF, CKD 3. The pt has new onset Anemia. TREATMENT: Cardiology Consult PN 08/07: Diurese, troponin trending down. on ASA, statin, BB. no GALDINO-I/ARB d/t marianne Thank you, Sonya (This form is maintained as a part of the permanent medical record) 2015 [employer] All Rights Reserved Sonya Shaffer RN, BSN maria [email or web address] Office: [phone] [facility]
--- NOTE | 2018-08-09 12:57 | PDOC.PN ---
- Subjective Encounter Start Date: 08/09/18 Encounter Start Time: 12:56 Subjective: feels well.no CP/SOB -: no blood in stools.no abd pain -: Code green note is on wrong pt-RN notified - Objective MAR Reviewed: Yes Vital Signs & Weight: Vital Signs (12 hours) Temp Pulse Pulse Resp BP BP Pulse Ox 08/09/18 12:00 99.6 F 107 H 18 135/89 97 08/09/18 10:38 62 126/59 L 08/09/18 08:00 97.1 F L 90 17 108/48 L 95 08/09/18 07:44 57 L 16 08/09/18 03:14 97.7 F 62 15 124/59 L 92 L Weight Admit Weight 206 lb 12.8 oz Weight 205 lb 3 oz I&O: 08/08/18 08/09/18 08/10/18 06:59 06:59 06:59 Intake Total 1494 1430 Output Total 1550 1225 Balance -56 205 Result Diagrams: 08/09/18 06:31 08/09/18 06:31 Additional Labs: Accuchecks 08/09/18 08/08/18 08/08/18 05:26 20:18 17:02 POC Glucose 119 H 164 H 111 H Microbiology 08/06/18 13:25 Urine voided Urine Culture - Final 08/06/18 12:23 Stool - Pending Stool Occult Blood (KEN) - Final Laboratory Tests 08/06/18 08/07/18 08/08/18 11:38 06:06 08:39 Creatinine 1.10 1.49 H 1.42 H 08/09/18 06:31 Creatinine 1.48 H Phys Exam - Physical Examination Constitutional: NAD pale HEENT: PERRLA, moist MMs, sclera anicteric, oral pharynx no lesions Neck: no nodes, no JVD, supple, full ROM Respiratory: no wheezing, no rales, no rhonchi, clear to auscultation bilateral Cardiovascular: RRR, no significant murmur, no rub Gastrointestinal: soft, non-tender, no distention, positive bowel sounds Musculoskeletal: no edema, pulses present Neurological: non-focal, normal sensation, moves all 4 limbs Psychiatric: normal affect, A&O x 3 Skin: no rash Dx/Plan (1) Acute on chronic anemia Code(s): D64.9 - ANEMIA, UNSPECIFIED Status: Acute Comment: Eliquis on hold with suspicion of occult/slow GIB .S/P 1 unit PRBC this admission (2) NSTEMI (non-ST elevated myocardial infarction) Code(s): I21.4 - NON-ST ELEVATION (NSTEMI) MYOCARDIAL INFARCTION Status: Chronic Comment: Suspect demand ischemia.on cardio-prudent meds (3) ALISHA (acute kidney injury) Code(s): N17.9 - ACUTE KIDNEY FAILURE, UNSPECIFIED Status: Acute Comment: stable (4) Acute on chronic combined systolic and diastolic CHF, NYHA class 4 Code(s): I50.43 - ACUTE ON CHRONIC COMBINED SYSTOLIC AND DIASTOLIC HRT FAIL Status: Acute Comment: on diuretics with good response (5) CAD (coronary artery disease) Code(s): I25.10 - ATHSCL HEART DISEASE OF [place] CORONARY ARTERY W/O ANG PCTRS Status: Chronic Qualifiers: Comment: chronic and stable (6) Chronic kidney disease, stage 2 (mild) Code(s): N18.2 - CHRONIC KIDNEY DISEASE, STAGE 2 (MILD) Status: Chronic (7) DM type 2 (diabetes mellitus, type 2) Status: Chronic Qualifiers: (8) Dyslipidemia Code(s): E78.5 - HYPERLIPIDEMIA, UNSPECIFIED Status: Chronic (9) HTN (hypertension) Code(s): I10 - ESSENTIAL (PRIMARY) HYPERTENSION Status: Chronic Qualifiers: (10) Paroxysmal a-fib Code(s): I48.0 - PAROXYSMAL ATRIAL FIBRILLATION Status: Chronic Comment: on multaq.Eliquis on hold due to Ac Anemia (11) Moderate mitral stenosis Code(s): I05.0 - RHEUMATIC MITRAL STENOSIS Status: Acute (12) Moderate mitral stenosis by prior echocardiogram Code(s): I05.0 - RHEUMATIC MITRAL STENOSIS Status: Chronic Comment: ECHO 2018 (13) Moderate aortic stenosis by prior echocardiogram Code(s): I35.0 - NONRHEUMATIC AORTIC (VALVE) STENOSIS Status: Chronic Comment: ECHO 06/2018 - Plan plan discussed w/ family, PT/OT, respiratory therapy, incentive spirometry, out of bed/ambulate, DVT proph w/SCDs Colonoscope and EGD likely tomorrow .cleared by cardiology -: cont to hold Eliquis.cont diuresis w strict I/os -: home meds as below -: am labs.H/H ,Cr stable. -: transfuse prn to keep Hb >7 * . Review of Systems - Review of Systems Constitutional: weakness. negative: fever, chills, sweats, malaise, other ENT: negative: Ear Pain, Ear Discharge, Nose Pain, Nose Discharge, Nose Congestion, Mouth Pain, Mouth Swelling, Throat Pain, Throat Swelling, Other Respiratory: SOB with Excertion. negative: Cough, Dry, Shortness of Breath, Hemoptysis, Pleuritic Pain, Sputum, Wheezing Cardiovascular: negative: chest pain, palpitations, orthopnea, paroxysmal nocturnal dyspnea, edema, light headedness, other Gastrointestinal: negative: Nausea, Vomiting, Abdominal Pain, Diarrhea, Constipation, Melena, Hematochezia, Other Genitourinary: negative: Dysuria, Frequency, Incontinence, Hematuria, Retention , Other Musculoskeletal: negative: Neck Pain, Shoulder Pain, Arm Pain, Back Pain, Hand Pain, Leg Pain, Foot Pain, Other Neurological: negative: Weakness, Numbness, Incoordination, Change in Speech, Confusion, Seizures, Other - Medications/Allergies Allergies/Adverse Reactions: Allergies Allergy/AdvReac Type Severity Reaction Status Date / Time Penicillins Allergy Intermediate Verified 08/06/18 15:12 lactose Allergy Verified 08/06/18 15:12 Medications: Current Medications Acetaminophen (Tylenol) 650 mg PO Q4H PRN PRN Reason: Headache/Fever/Mild Pain (1-3) Last Admin: 08/06/18 20:28 Dose: 650 mg Hydrocodone Bitart/Acetaminophen ([place] 5/325) 1 tab PO Q4H PRN PRN Reason: Moderate Pain (4-6) Last Admin: 08/09/18 05:47 Dose: 1 tab Hydrocodone Bitart/Acetaminophen ([place] 5/325) 2 tab PO Q4H PRN PRN Reason: Severe Pain (7-10) Last Admin: 08/07/18 00:03 Dose: 2 tab Albuterol Sulfate (Proventil Hfa) 2 puff INH [id number] [facility] Last Admin: 08/09/18 07:44 Dose: 2 puff Aspirin (Aspirin Chewable) 81 mg PO DAILY [facility] Last Admin: 08/09/18 08:56 Dose: 81 mg Atorvastatin Calcium (Lipitor) 10 mg PO HS [facility] Last Admin: 08/08/18 21:22 Dose: 10 mg Dextrose/Water (Dextrose 50%) 25 gm SLOW IVP PRN PRN PRN Reason: Hypoglycemia Dronedarone (Multaq) 400 mg PO BID-WM [facility] Last Admin: 08/09/18 08:55 Dose: 400 mg Fish Oil (Fish Oil) 1,000 mg PO BID [facility] Last Admin: 08/09/18 08:55 Dose: 1,000 mg Fluoxetine HCl (Prozac) 40 mg PO DAILY [facility] Last Admin: 08/09/18 08:55 Dose: 40 mg Fluticasone Propionate (Flonase Nasal [place]) 0 gm NASAL PRN PRN PRN Reason: Congestion Furosemide (Lasix) 40 mg SLOW IVP 0600,1400 [facility] Last Admin: 08/09/18 05:47 Dose: 40 mg Glucagon (Glucagon) 1 mg IM PRN PRN PRN Reason: Hypoglycemia Dextrose/Water (D5w) 1,000 mls @ 0 mls/hr IV .Q0M PRN PRN Reason: Hypoglycemia Insulin Human Regular (Humulin R) 0 units SC .MODERATE SLIDING SC PRN PRN Reason: Moderate Correctional Scale Last Admin: 08/08/18 14:16 Dose: 4 units Insulin Human Regular (Humulin R) 0 units SC .BEDTIME SLIDING SC PRN PRN Reason: Bedtime Correctional Scale Last Admin: 08/07/18 20:52 Dose: 3 unit Metoprolol Succinate (Toprol Xl) 12.5 mg PO QPM [facility] Last Admin: 08/08/18 21:22 Dose: 12.5 mg Mometasone Furoate/Formoterol Fumar (Dulera 200 Mcg/5 Mcg Inhaler) 2 puff INH BID-RT [facility] Last Admin: 08/09/18 07:46 Dose: 2 puff Montelukast Sodium (Singulair) 10 mg PO QPM [facility] Last Admin: 08/08/18 21:21 Dose: 10 mg Pregabalin (Lyrica) 300 mg PO HS [facility] Last Admin: 08/08/18 21:26 Dose: 300 mg
--- NOTE | 2018-08-09 14:13 | PRG ---
DATE OF SERVICE: 08/09/2018 REASON FOR CONSULTATION: Anemia of unknown origin. SUBJECTIVE: The patient did well overnight with no acute events or problems. She states that she has been urinating quite a bit with the administration of diuretics during this hospitalization. She has not required any further infusion of blood, nor has she seen any blood in her stool. She did have one semi-solid bowel movement earlier today that did not exhibit any gross blood. Currently, she denies any nausea, vomiting, fevers, chills, or constipation. OBJECTIVE: VITAL SIGNS: Temperature 99.6, pulse 107, blood pressure 126/59, respiratory rate 18, saturating 97% on 2 L nasal cannula. GENERAL: The patient was sitting in a chair at bedside, in no acute distress. Alert and oriented x4. CARDIOVASCULAR: Regular rate and rhythm. RESPIRATORY: Clear to auscultation bilaterally. ABDOMEN: Normoactive bowel sounds. Soft, nontender, nondistended. EXTREMITIES: No cyanosis, clubbing, or edema. LABORATORY DATA: CBC with a hemoglobin of 8.5 and hematocrit of 27.3. Chemistry with a sodium of 135, potassium 4.3, chloride , CO2 of 27, BUN 25, creatinine 1.48, glucose 100. IMAGING DATA: No current GI imaging is available for review. ASSESSMENT AND PLAN: The patient is a 73-year-old female with past medical history of diabetes; hyperlipidemia; hypertension; osteoarthritis; asthma; atrial fibrillation, on anticoagulation; congestive heart failure; and peripheral neuropathy; presenting with anemia of unknown origin. 1. Anemia of unknown origin. The patient is presenting with a 3-month history of progressively worsening weakness and shortness of breath. On evaluation at [facility] ER, she was noted to have a significant anemia, but denies any evidence of overt GI bleeding prior to her admission. Serologies obtained from the patient were more consistent with an iron deficiency anemia, which could be reflective of a chronic gastrointestinal bleed or malignant neoplasm within the GI tract itself. Given her acute on chronic exacerbation of her congestive heart failure, she was placed on diuretic management and is currently responding well with Cardiology following the patient saying that she is now stable for instrumentation. RECOMMENDATIONS: 1. We would continue to trend hemoglobin and hematocrit and transfuse as necessary to maintain hemoglobin and hematocrit of 7/21. 2. Continue to monitor clinically for signs of active GI bleeding. 3. We would avoid anticoagulation except on Cardiology Service recommendations. 4. We will plan for both EGD and colonoscopy tomorrow for evaluation of possible bleeding source within the GI tract. We will continue the patient on a clear liquid diet and place n.p.o. at midnight in anticipation of these procedures. We will continue to follow. Please call with any questions. Job ID: [id number]
--- NOTE | 2018-08-09 18:20 | PDOC.CTH ---
Cardiology Progress Note - Subjective Doing well. No issues. No current symptoms present. Pt received one unit of PRBC over weekend - Objective Vital Signs Temp Pulse Pulse Pulse Resp BP BP 08/09/18 16:00 97.6 F 57 L 17 08/09/18 14:42 55 L 16 08/09/18 12:00 99.6 F 107 H 18 08/09/18 10:38 62 126/59 L 08/09/18 09:02 70 69 108/48 L 105/49 L 08/09/18 08:00 97.1 F L 90 17 08/09/18 07:44 57 L 16 BP Pulse Ox 08/09/18 16:00 134/63 96 08/09/18 14:42 08/09/18 12:00 135/89 97 08/09/18 10:38 08/09/18 09:02 08/09/18 08:00 108/48 L 95 08/09/18 07:44 Admit Weight 206 lb 12.8 oz Weight 205 lb 3 oz 08/08/18 08/09/18 08/10/18 06:59 06:59 06:59 Intake Total 1494 1430 600 Output Total 1550 1225 1900 Balance -56 205 -1300 - Physical Examination General/Neuro: alert & oriented x3, NAD Neck: carotid US brisk, no JVD present Lungs: CTA, unlabored respirations Heart: PMI normal, RRR Abdomen: NT/ND, soft Extremities: + femoral B - Labs Result Diagrams: 08/09/18 06:31 08/09/18 06:31 Troponin/CKMB CK-MB (CK-2) 4.0 ng/mL (0-6.6) 08/08/18 08:39 Troponin I 0.241 ng/mL (< 0.028) H 08/08/18 08:39 - Assessment/Plan Acute on chronic diastolic CHF Anemia, possible GI in origin. NSTEMI, demand ischemia likely given troponin trend. Severe CAD s/p CABG Moderate Moderate to severe MS Very difficult cardiac case given CAD, MS and Agree with addressing anemia Pt with symptoms of SOB with low Hb At this point, recommend continued conservative treatment
[2018-08-09] MEDS ORDERED: GoLYTELY 4,000 ml Bottle PO SCH (19:00)
[2018-08-09] MEDS: Atorvastatin Calcium 10 MG TAB PO SCH (20:50)
[2018-08-09] MEDS: Pregabalin 75 MG CAP PO SCH (20:50)
[2018-08-09] MEDS: Montelukast Sodium 10 mg Tablet PO SCH (20:50)
[2018-08-10] MEDS: PROVENTIL INHALER 6.7 G (200 INHALATIONS) INH SCH ×5 (00:04→22:40)
[2018-08-10] MEDS: HYDROcodone/Acetaminophen 5/325 mg Tablet PO PRN (03:43)
[2018-08-10] MEDS: Furosemide 40 MG/4 ML VIAL SLOW IVP SCH ×2 (05:59→16:49)
[2018-08-10] MEDS: Mometasone/Formoterol 120 PUFF INHALER INH SCH ×2 (07:45→19:36)
[2018-08-10 09:16] LABS: Hemoglobin 7.9 g/dL (12.0-16.0)
[2018-08-10 09:34] LABS: Anion Gap 14 mmol/L (10-20); BUN (Urea Nitrogen) 21 mg/dL (9.8-20.1); Calc. Creatinine Clearance 56 mL/min (70-130); Calcium 8.6 mg/dL (7.8-10.44); Carbon Dioxide 28 mmol/L (23-31); Chloride 96 mmol/L (98-107); Estimated GFR-MDRD 38; Glucose 100 mg/dL (83-110); Potassium 3.7 mmol/L (3.5-5.1); Sodium 134 mmol/L (136-145)
[2018-08-10] MEDS: Dronedarone HCl 400 MG TAB PO SCH ×2 (10:07→16:48)
[2018-08-10] MEDS: Fish Oil 1,000 MG CAP PO SCH ×2 (10:07→20:29)
[2018-08-10] MEDS: FLUoxetine HCl 20 MG CAP PO SCH (10:07)
[2018-08-10] MEDS: Aspirin Chewable 81 MG TAB PO SCH (10:07)
[2018-08-10] MEDS ORDERED: PHENYLEPHRINE-NS 100 MCG/ML 10 ML SYRINGE ONE (14:38)
[2018-08-10] MEDS ORDERED: ePHEDrine 50 MG/ML VIAL ONE (14:38)
[2018-08-10] MEDS ORDERED: Lidocaine 1% PF 5 ML VIAL ONE (14:38)
[2018-08-10] MEDS ORDERED: PROPOFOL 200 MG/20 ML VIAL ONE (14:38)
--- NOTE | 2018-08-10 17:25 | PDOC.PN ---
- Subjective Encounter Start Date: 08/10/18 Encounter Start Time: 17:23 Subjective: feels well. no new complaints - Objective MAR Reviewed: Yes Vital Signs & Weight: Vital Signs (12 hours) Temp Pulse Resp BP BP Pulse Ox 08/10/18 16:48 119/56 L 08/10/18 16:00 97.4 F L 64 18 98/44 L 94 L 08/10/18 12:31 58 L 16 90 L 08/10/18 11:48 97.4 F L 62 20 149/75 H 96 08/10/18 08:00 95 08/10/18 07:59 97.7 F 62 18 121/61 95 08/10/18 07:46 87 L 08/10/18 07:43 67 16 87 L Weight Admit Weight 206 lb 12.8 oz Weight 210 lb 11.2 oz I&O: 08/09/18 08/10/18 08/11/18 06:59 06:59 06:59 Intake Total 1430 600 Output Total 1225 1900 Balance 205 -1300 Result Diagrams: 08/10/18 09:09 08/10/18 09:09 Additional Labs: Accuchecks 08/10/18 08/10/18 08/10/18 16:48 11:01 06:06 POC Glucose 127 H 120 H 105 08/09/18 08/09/18 20:14 16:44 POC Glucose 159 H 134 H Phys Exam - Physical Examination Constitutional: NAD HEENT: PERRLA, moist MMs, sclera anicteric, oral pharynx no lesions Neck: no nodes, no JVD, supple, full ROM Respiratory: no wheezing, no rales, no rhonchi, clear to auscultation bilateral Cardiovascular: RRR, no significant murmur Gastrointestinal: soft, non-tender, no distention, positive bowel sounds Musculoskeletal: no edema, pulses present Neurological: non-focal, normal sensation, moves all 4 limbs Psychiatric: normal affect, A&O x 3 Skin: no rash Dx/Plan (1) Acute on chronic anemia Code(s): D64.9 - ANEMIA, UNSPECIFIED Status: Acute Comment: Eliquis on hold with suspicion of occult/slow GIB .S/P 1 unit PRBC this admission (2) NSTEMI (non-ST elevated myocardial infarction) Code(s): I21.4 - NON-ST ELEVATION (NSTEMI) MYOCARDIAL INFARCTION Status: Chronic Comment: Suspect demand ischemia.on cardio-prudent meds [place] type 2 (3) ALISHA (acute kidney injury) Code(s): N17.9 - ACUTE KIDNEY FAILURE, UNSPECIFIED Status: Acute Comment: stable (4) Acute on chronic combined systolic and diastolic CHF, NYHA class 4 Code(s): I50.43 - ACUTE ON CHRONIC COMBINED SYSTOLIC AND DIASTOLIC HRT FAIL Status: Acute Comment: on diuretics with good response (5) CAD (coronary artery disease) Code(s): I25.10 - ATHSCL HEART DISEASE OF [place] CORONARY ARTERY W/O ANG PCTRS Status: Chronic Qualifiers: Comment: chronic and stable (6) Chronic kidney disease, stage 2 (mild) Code(s): N18.2 - CHRONIC KIDNEY DISEASE, STAGE 2 (MILD) Status: Chronic (7) DM type 2 (diabetes mellitus, type 2) Status: Chronic Qualifiers: (8) Dyslipidemia Code(s): E78.5 - HYPERLIPIDEMIA, UNSPECIFIED Status: Chronic (9) HTN (hypertension) Code(s): I10 - ESSENTIAL (PRIMARY) HYPERTENSION Status: Chronic Qualifiers: (10) Paroxysmal a-fib Code(s): I48.0 - PAROXYSMAL ATRIAL FIBRILLATION Status: Chronic Comment: on multaq.Eliquis on hold due to Ac Anemia (11) Moderate mitral stenosis Code(s): I05.0 - RHEUMATIC MITRAL STENOSIS Status: Acute (12) Moderate mitral stenosis by prior echocardiogram Code(s): I05.0 - RHEUMATIC MITRAL STENOSIS Status: Chronic Comment: ECHO 2018 (13) Moderate aortic stenosis by prior echocardiogram Code(s): I35.0 - NONRHEUMATIC AORTIC (VALVE) STENOSIS Status: Chronic Comment: ECHO 06/2018 - Plan plan discussed w/ family, PT/OT, DVT proph w/SCDs EGd/colonoscopy today.monitor H/H -: Cont to hold OAC. NSR for now -: will need to address restarting of OAC based on Scope results -: HD stable. -: Monitor H/H,renal Fx. * . Review of Systems - Review of Systems Constitutional: negative: fever, chills, sweats, weakness, malaise, other ENT: negative: Ear Pain, Ear Discharge, Nose Pain, Nose Discharge, Nose Congestion, Mouth Pain, Mouth Swelling, Throat Pain, Throat Swelling, Other Respiratory: negative: Cough, Dry, Shortness of Breath, Hemoptysis, SOB with Excertion, Pleuritic Pain, Sputum, Wheezing Cardiovascular: negative: chest pain, palpitations, orthopnea, paroxysmal nocturnal dyspnea, edema, light headedness, other Gastrointestinal: negative: Nausea, Vomiting, Abdominal Pain, Diarrhea, Constipation, Melena, Hematochezia, Other Genitourinary: negative: Dysuria, Frequency, Incontinence, Hematuria, Retention , Other Musculoskeletal: negative: Neck Pain, Shoulder Pain, Arm Pain, Back Pain, Hand Pain, Leg Pain, Foot Pain, Other Neurological: negative: Weakness, Numbness, Incoordination, Change in Speech, Confusion, Seizures, Other - Medications/Allergies Allergies/Adverse Reactions: Allergies Allergy/AdvReac Type Severity Reaction Status Date / Time Penicillins Allergy Intermediate Verified 08/06/18 15:12 lactose Allergy Verified 08/06/18 15:12 Medications: Current Medications Acetaminophen (Tylenol) 650 mg PO Q4H PRN PRN Reason: Headache/Fever/Mild Pain (1-3) Last Admin: 08/06/18 20:28 Dose: 650 mg Hydrocodone Bitart/Acetaminophen ([place] 5/325) 1 tab PO Q4H PRN PRN Reason: Moderate Pain (4-6) Last Admin: 08/09/18 21:28 Dose: 1 tab Hydrocodone Bitart/Acetaminophen ([place] 5/325) 2 tab PO Q4H PRN PRN Reason: Severe Pain (7-10) Last Admin: 08/10/18 03:43 Dose: 2 tab Albuterol Sulfate (Proventil Hfa) 2 puff INH [id number] [facility] Last Admin: 08/10/18 12:31 Dose: 2 puff Aspirin (Aspirin Chewable) 81 mg PO DAILY [facility] Last Admin: 08/10/18 10:07 Dose: 81 mg Atorvastatin Calcium (Lipitor) 10 mg PO HS [facility] Last Admin: 08/09/18 20:50 Dose: 10 mg Dextrose/Water (Dextrose 50%) 25 gm SLOW IVP PRN PRN PRN Reason: Hypoglycemia Dronedarone (Multaq) 400 mg PO BID-WM [facility] Last Admin: 08/10/18 16:48 Dose: 400 mg Fish Oil (Fish Oil) 1,000 mg PO BID [facility] Last Admin: 08/10/18 10:07 Dose: 1,000 mg Fluoxetine HCl (Prozac) 40 mg PO DAILY [facility] Last Admin: 08/10/18 10:07 Dose: 40 mg Fluticasone Propionate (Flonase Nasal [place]) 0 gm NASAL PRN PRN PRN Reason: Congestion Furosemide (Lasix) 40 mg SLOW IVP 0600,1400 [facility] Last Admin: 08/10/18 16:49 Dose: 40 mg Glucagon (Glucagon) 1 mg IM PRN PRN PRN Reason: Hypoglycemia Dextrose/Water (D5w) 1,000 mls @ 0 mls/hr IV .Q0M PRN PRN Reason: Hypoglycemia Insulin Human Regular (Humulin R) 0 units SC .MODERATE SLIDING SC PRN PRN Reason: Moderate Correctional Scale Last Admin: 08/08/18 14:16 Dose: 4 units Insulin Human Regular (Humulin R) 0 units SC .BEDTIME SLIDING SC PRN PRN Reason: Bedtime Correctional Scale Last Admin: 08/07/18 20:52 Dose: 3 unit Metoprolol Succinate (Toprol Xl) 12.5 mg PO QPM [facility] Last Admin: 08/09/18 20:50 Dose: 12.5 mg Mometasone Furoate/Formoterol Fumar (Dulera 200 Mcg/5 Mcg Inhaler) 2 puff INH BID-RT [facility] Last Admin: 08/10/18 07:45 Dose: 2 puff Montelukast Sodium (Singulair) 10 mg PO QPM [facility] Last Admin: 08/09/18 20:50 Dose: 10 mg Pantoprazole Sodium (Protonix) 40 mg PO BID [facility] Pregabalin (Lyrica) 300 mg PO HS [facility] Last Admin: 08/09/18 20:50 Dose: 300 mg
[2018-08-10] MEDS: Atorvastatin Calcium 10 MG TAB PO SCH (20:29)
[2018-08-10] MEDS: Pregabalin 75 MG CAP PO SCH (20:30)
[2018-08-10] MEDS: Montelukast Sodium 10 mg Tablet PO SCH (20:30)
--- NOTE | 2018-08-10 20:59 | OP ---
DATE OF PROCEDURE: 08/10/2018 PROCEDURES PERFORMED: Esophagogastroduodenoscopy with biopsy and colonoscopy with snare polypectomy and control of hemorrhage. PREOPERATIVE DIAGNOSIS: Iron deficiency anemia. DESCRIPTION OF PROCEDURE: Informed consent was obtained from the patient. She was sedated with total intravenous anesthesia. The bite block was placed and the endoscope was advanced easily to the second portion of the duodenum and retroflexion was performed in the stomach. The esophagus was normal. The GE junction was normal. The stomach had 2 small ulcers, measuring 5 and 6 mm. However, these appeared inflamed around them, which may indicate that they were more significant previously and now may be healing. There was also deformity of the antrum associated in the area around the ulcers, again associated with more significant ulceration in the past. Retroflexed views in the stomach were normal. Biopsies were obtained from the antrum to rule out H pylori. The pylorus and first and second portions of the duodenum were normal. Duodenal biopsies were obtained to rule out celiac disease. The patient was turned around. Rectal exam was performed and it was normal. The colonoscope was advanced to the distal sigmoid, where the sigmoid colon was fixed and strictured around an area of diverticulosis. I was unable to pass the colonoscope through this area. I made exchange for a diagnostic upper endoscope and I was able to complete the procedure to the cecum without difficulty with this smaller scope. There were 2 small vascular ectasias found in the cecum and in the proximal ascending colon. These were cauterized with argon plasma coagulation. I removed the 6-mm sessile polyp from the hepatic flexure with snare cautery polypectomy. There was diverticulosis scattered throughout the colon. Retroflexed views in the rectum were unremarkable. IMPRESSION: 1. Two gastric small ulcers measuring 5 and 6 mm, which were biopsied. The inflammation around these ulcers and deformity of the antrum indicate that she may have had more significant ulceration in the antrum previously. Biopsies were obtained from the antrum to rule out Helicobacter pylori. 2. Otherwise normal EGD. Duodenal biopsies were taken to rule out Helicobacter pylori. 3. Tight fixed peridiverticular segment in the sigmoid colon with narrowing, through which I was unable to pass the colonoscope. The procedure was then completed with a diagnostic upper endoscope. 4. Two small vascular ectasias in the ascending colon and cecum, cauterized with argon plasma coagulation. 5. 6-mm sessile polyp removed from the hepatic flexure by snare cautery polypectomy. 6. Diverticulosis scattered throughout the colon. 7. Otherwise normal colonoscopy. RECOMMENDATIONS: 1. Await histopathology. 2. Follow trend of her hemoglobin. Eliquis can be restarted in a week likely; however, there still will be some postprocedure bleeding risk even then. Job ID: [id number]
[2018-08-11] MEDS: HYDROcodone/Acetaminophen 5/325 mg Tablet PO PRN ×2 (00:47→23:36)
[2018-08-11] MEDS: Furosemide 40 MG/4 ML VIAL SLOW IVP SCH ×2 (05:28→13:22)
[2018-08-11 05:50] LABS: Hemoglobin 7.6 g/dL (12.0-16.0)
[2018-08-11 06:04] LABS: Anion Gap 13 mmol/L (10-20); BUN (Urea Nitrogen) 23 mg/dL (9.8-20.1); Calc. Creatinine Clearance 49 mL/min (70-130); Calcium 8.5 mg/dL (7.8-10.44); Carbon Dioxide 31 mmol/L (23-31); Chloride 93 mmol/L (98-107); Estimated GFR-MDRD 32; Glucose 111 mg/dL (83-110); Potassium 3.9 mmol/L (3.5-5.1); Sodium 133 mmol/L (136-145)
--- NOTE | 2018-08-11 06:09 | PDOC.CTH ---
Cardiology Progress Note - Subjective Feels good this am. Seen ambulating. No complaints - Objective Vital Signs Temp Pulse Resp BP BP Pulse Ox 08/11/18 04:00 97.8 F 66 20 141/54 H 93 L 08/11/18 00:49 69 151/56 H 08/10/18 22:40 70 12 08/10/18 20:27 97.8 F 70 18 126/54 L 96 Admit Weight 206 lb 12.8 oz Weight 210 lb 11.2 oz 08/09/18 08/10/18 08/11/18 06:59 06:59 06:59 Intake Total 1430 600 750 Output Total 1225 1900 1500 Balance 205 -1300 -750 - Physical Examination General/Neuro: alert & oriented x3, NAD Neck: carotid US brisk, no JVD present Lungs: CTA, unlabored respirations Heart: PMI normal, RRR Abdomen: NT/ND, soft Extremities: + femoral B - Labs Result Diagrams: 08/11/18 05:28 08/11/18 05:28 Troponin/CKMB CK-MB (CK-2) 4.0 ng/mL (0-6.6) 08/08/18 08:39 Troponin I 0.241 ng/mL (< 0.028) H 08/08/18 08:39 - Assessment/Plan Acute on chronic diastolic CHF Anemia, possible GI in origin. NSTEMI, demand ischemia likely given troponin trend. Severe CAD s/p CABG Moderate Moderate to severe MS No changes noted Continue conservative treatment Ok to transfer to medical if anticipating longer stay Will follow perpherally
[2018-08-11] MEDS: PROVENTIL INHALER 6.7 G (200 INHALATIONS) INH SCH ×3 (07:13→19:35)
[2018-08-11] MEDS: Mometasone/Formoterol 120 PUFF INHALER INH SCH ×2 (07:15→19:35)
[2018-08-11] MEDS: Dronedarone HCl 400 MG TAB PO SCH ×2 (08:04→17:09)
[2018-08-11] MEDS: Fish Oil 1,000 MG CAP PO SCH ×2 (08:04→21:17)
[2018-08-11] MEDS: Aspirin Chewable 81 MG TAB PO SCH (08:05)
[2018-08-11] MEDS: FLUoxetine HCl 20 MG CAP PO SCH (08:06)
--- NOTE | 2018-08-11 14:09 | PDOC.PN ---
- Subjective Encounter Start Date: 08/11/18 Encounter Start Time: 13:50 Subjective: f/u for acute/chronic anemia secondary to GI blood loss in context of -: OAC/ASA. Remains on Protonix. No new complaints. Ambulated with PT. -: Tolerating po intake. - Objective MAR Reviewed: Yes Vital Signs & Weight: Vital Signs (12 hours) Temp Pulse Pulse Pulse Resp BP BP 08/11/18 12:48 66 20 08/11/18 11:07 97.7 F 64 16 08/11/18 08:55 60 69 101/81 145/51 H 08/11/18 08:06 08/11/18 07:36 97.6 F 60 16 08/11/18 07:16 08/11/18 07:13 81 16 08/11/18 04:00 97.8 F 66 20 BP BP Pulse Ox Pulse Ox Pulse Ox 08/11/18 12:48 95 08/11/18 11:07 116/54 L 99 08/11/18 08:55 99 99 08/11/18 08:06 97 08/11/18 07:36 124/58 L 97 08/11/18 07:16 98 08/11/18 07:13 98 08/11/18 04:00 141/54 H 93 L Weight Admit Weight 206 lb 12.8 oz Weight 212 lb 8 oz I&O: 08/10/18 08/11/18 08/12/18 06:59 06:59 06:59 Intake Total 600 1450 Output Total 1900 1900 Balance -1300 -450 Result Diagrams: 08/11/18 05:28 08/11/18 05:28 Additional Labs: Accuchecks 08/11/18 08/11/18 08/10/18 11:06 05:40 20:35 POC Glucose 174 H 132 H 169 H 08/10/18 16:48 POC Glucose 127 H Laboratory Tests 09/25/16 09/25/16 09/25/16 23:10 23:10 23:10 Hgb Sodium Creatinine Iron Troponin I Less than 0.010 B-Natriuretic Peptide 131.9 H TSH 3rd Generation 2.1675 09/26/16 09/26/16 08/06/18 02:48 05:37 18:02 Hgb Sodium Creatinine Iron 17 L Troponin I Less than 0.010 0.020 B-Natriuretic Peptide TSH 3rd Generation 08/06/18 08/07/18 08/07/18 21:07 06:06 06:06 Hgb 7.7 L 8.6 L Sodium Creatinine 1.49 H Iron Troponin I B-Natriuretic Peptide TSH 3rd Generation 08/08/18 08/08/18 08/09/18 08:39 08:39 06:31 Hgb 8.8 L 8.5 L Sodium Creatinine 1.42 H Iron Troponin I B-Natriuretic Peptide TSH 3rd Generation 08/09/18 08/10/18 08/10/18 06:31 09:09 09:09 Hgb 7.9 L Sodium 135 L 134 L Creatinine 1.48 H 1.37 H Iron Troponin I B-Natriuretic Peptide [facility] 3rd Generation EKG Reviewed by me: Yes (Tele - SR) Phys Exam - Physical Examination Constitutional: NAD HEENT: PERRLA, sclera anicteric, oral pharynx no lesions Neck: no nodes, no JVD, supple, full ROM Respiratory: no wheezing, no rales, no rhonchi, clear to auscultation bilateral S1, S2 Cardiovascular: RRR, no significant murmur, no rub, gallop obese Gastrointestinal: soft, non-tender, no distention, positive bowel sounds Musculoskeletal: no edema, pulses present Neurological: normal sensation, moves all 4 limbs Psychiatric: A&O x 3 Skin: normal turgor, cap refill <2 seconds Dx/Plan (1) Acute on chronic anemia Code(s): D64.9 - ANEMIA, UNSPECIFIED Status: Acute Comment: Eliquis on hold with suspicion of occult/slow GIB .S/P 1 unit PRBC this admission, Hgb remains low, serial H/H, hold all anticoagulation, continue Protonix 40mg BID (2) Acute on chronic combined systolic and diastolic CHF, NYHA class 4 Code(s): I50.43 - ACUTE ON CHRONIC COMBINED SYSTOLIC AND DIASTOLIC HRT FAIL Status: Acute Comment: Continue Lasix 40mg IV BID, transition to oral in 24h (3) ALISHA (acute kidney injury) Code(s): N17.9 - ACUTE KIDNEY FAILURE, UNSPECIFIED Status: Acute Comment: Avoid nephrotoxic agent and limit contrast exposure, serial creatinine (4) Acute respiratory failure with hypoxia Code(s): J96.01 - ACUTE RESPIRATORY FAILURE WITH HYPOXIA Status: Acute Comment: Continue O2 supplementation, wean off O2 as clinically indicated (5) Physical deconditioning Code(s): R53.81 - OTHER [place]ISE Status: Chronic Comment: OOB with PT, fall risk precautions (6) Demand ischemia of myocardium Code(s): I24.8 - OTHER FORMS OF ACUTE ISCHEMIC HEART DISEASE Status: Acute Comment: No acute intervention, ASA - Plan plan discussed w/ family, PT/OT, director of social services, out of bed/ambulate, DVT proph w/SCDs Stable currently -: Continue IV Lasix another 24h then convert to po -: OOB with PT -: Hold OAC -: AM lab: BMP, H/H * .
--- NOTE | 2018-08-11 19:13 | PRG ---
DATE OF SERVICE: 08/11/2018 REASON FOR CONSULTATION: Iron-deficiency anemia, anemia of unknown origin. SUBJECTIVE: The patient underwent both EGD and colonoscopy yesterday with no postoperative complications. During the course of the procedures, they did find 2 small nonbleeding gastric ulcerations within the gastric antrum as well as 2 small AVMs within the proximal colon that were intervened upon with argon plasma coagulation. Today, she denies any episodes of melena, hematochezia, or hematemesis. In fact, the patient has been able to ambulate throughout the [place] with only some difficulty secondary to increased shortness of breath with prolonged exertion. Currently, she denies any nausea, vomiting, fevers, chills, diarrhea, constipation, or GI bleeding. OBJECTIVE: VITAL SIGNS: Temperature 97.4, pulse 60, blood pressure 120/54, respiratory rate 20, saturating 99% on 2 L nasal cannula. GENERAL: The patient was lying in bed, in no acute distress, alert and oriented x4. CARDIOVASCULAR: Regular rate and rhythm. RESPIRATORY: Clear to auscultation bilaterally. ABDOMEN: Normoactive bowel sounds. Soft, nontender, and nondistended. EXTREMITIES: No cyanosis, clubbing, or edema. LABORATORY DATA: Hemoglobin of 7.6 and hematocrit of 24.5. Chemistry with a sodium of 133, potassium 3.9, chloride 93, CO2 of 31, BUN 23, creatinine 1.58, and glucose 111. IMAGING DATA: The patient underwent both upper endoscopy and colonoscopy on August 10, 2018, which showed evidence of two 5 to 6 mm antral ulcerations that were clean based and did not exhibit any evidence of GI bleeding. However, the pylorus was eccentrically placed with an increased amount of scar tissue concerning for chronic ulcer disease and/or ulcer disease in the past. The colonoscopy yielded a strict angulation of the sigmoid colon or even a possible colonic stricture that was unable to be traversed with the standard colonoscope. It was ultimately traversed with a gastroscope with evaluation of the entire colon. Within the proximal colon, there were 2 small arteriovenous malformations that were nonbleeding, but intervened upon with argon plasma coagulation given her history of significant anemia. There was a rectal polyp as well, but no other significant abnormalities were seen and nothing that would further contribute to an iron-deficiency anemia or anemia in general. ASSESSMENT AND PLAN: The patient is a 73-year-old female with past medical history of diabetes, hyperlipidemia, hypertension, osteoarthritis, asthma, atrial fibrillation on anticoagulation, congestive heart failure, and peripheral neuropathy, presenting with anemia of unknown origin. 1. Anemia of unknown origin. The patient initially presented with a 3-month history of progressive worsening of weakness and shortness of breath. On initial evaluation in the ER, she was noted to have a significant anemia with no discernible etiology. Iron indices obtained shortly after admission were consistent with iron-deficiency anemia. She subsequently underwent an upper endoscopy and colonoscopy on August 10, 2018, which showed presence of nonbleeding gastric ulcerations, evidence of prior peptic ulcer disease in the past, arteriovenous malformations within the proximal colon as well as a colonic stricture in the sigmoid colon. At this time, the presence of the gastric ulcerations or the arteriovenous malformations could potentially generate an iron-deficiency anemia, especially if the patient is placed on anticoagulation therapy. Based on the upper endoscopies from yesterday, they were not actively bleeding. Therefore, it is unknown if these were the true causative elements of her anemia, but do seem more likely. RECOMMENDATIONS: 1. We would continue to trend H and H and transfuse as necessary to maintain an H and H of 7/21. 2. Continue to monitor clinically for signs of active GI bleeding. 3. We would attempt to avoid anticoagulation except on Cardiology Service recommendations. 4. We will follow up on the biopsy results obtained from yesterday for evaluation of H pylori status. If positive, we would start the patient on triple therapy. At this time, we have no further recommendations and can have the patient follow up in the outpatient GI clinic for biopsy results. Please call with any additional questions. Job ID: [id number]
[2018-08-11] MEDS: Atorvastatin Calcium 10 MG TAB PO SCH (21:17)
[2018-08-11] MEDS: Montelukast Sodium 10 mg Tablet PO SCH (21:17)
[2018-08-11] MEDS: Pregabalin 75 MG CAP PO SCH (21:18)
[2018-08-12] MEDS: PROVENTIL INHALER 6.7 G (200 INHALATIONS) INH SCH ×4 (00:22→18:55)
[2018-08-12] MEDS: Furosemide 40 MG/4 ML VIAL SLOW IVP SCH ×2 (04:52→14:10)
[2018-08-12 07:03] LABS: Hemoglobin 7.7 g/dL (12.0-16.0); Platelet Count 193 thou/uL (130-400)
[2018-08-12] MEDS: Mometasone/Formoterol 120 PUFF INHALER INH SCH ×2 (07:04→19:03)
[2018-08-12 07:22] LABS: Anion Gap 14 mmol/L (10-20); BUN (Urea Nitrogen) 30 mg/dL (9.8-20.1); Calc. Creatinine Clearance 41 mL/min (70-130); Calcium 8.7 mg/dL (7.8-10.44); Carbon Dioxide 30 mmol/L (23-31); Chloride 94 mmol/L (98-107); Estimated GFR-MDRD 26; Glucose 116 mg/dL (83-110); Potassium 4.2 mmol/L (3.5-5.1); Sodium 134 mmol/L (136-145)
[2018-08-12] MEDS: Aspirin Chewable 81 MG TAB PO SCH (08:19)
[2018-08-12] MEDS: Dronedarone HCl 400 MG TAB PO SCH ×2 (08:19→16:19)
[2018-08-12] MEDS: FLUoxetine HCl 20 MG CAP PO SCH (08:19)
[2018-08-12] MEDS: Fish Oil 1,000 MG CAP PO SCH ×2 (08:19→20:16)
[2018-08-12 11:43] VITALS: BMI 33.5
--- NOTE | 2018-08-12 16:57 | PDOC.PN ---
- Subjective Encounter Start Date: 08/12/18 Encounter Start Time: 16:50 Subjective: f/u for acute/chronic anemia s/p 1u PRBC's with persistently low -: hgb. Remains on Protonix BID. H. pylori + and will initiate tx today. -: Feels ok overall. - Objective MAR Reviewed: Yes Vital Signs & Weight: Vital Signs (12 hours) Temp Pulse Resp BP Pulse Ox 08/12/18 16:20 98.7 F 60 16 106/54 L 98 08/12/18 12:36 61 16 94 L 08/12/18 12:20 81 16 104/48 L 92 L 08/12/18 07:24 98.4 F 59 L 18 105/48 L 97 08/12/18 07:03 59 L 20 98 Weight Admit Weight 208 lb Weight 214 lb 9 oz I&O: 08/11/18 08/12/18 08/13/18 06:59 06:59 06:59 Intake Total 1450 1900 Output Total 1900 3650 Balance -450 -1750 Result Diagrams: 08/12/18 05:58 08/12/18 05:58 Additional Labs: Accuchecks 08/12/18 08/11/18 08/11/18 05:12 20:39 17:39 POC Glucose 134 H 143 H 130 H Laboratory Tests 09/25/16 09/25/16 09/25/16 23:10 23:10 23:10 Hgb Sodium Creatinine Iron Troponin I Less than 0.010 B-Natriuretic Peptide 131.9 H TSH 3rd Generation 2.1675 09/26/16 09/26/16 08/06/18 02:48 05:37 18:02 Hgb Sodium Creatinine Iron 17 L Troponin I Less than 0.010 0.020 B-Natriuretic Peptide TSH 3rd Generation 08/06/18 08/07/18 08/07/18 21:07 06:06 06:06 Hgb 7.7 L 8.6 L Sodium Creatinine 1.49 H Iron Troponin I B-Natriuretic Peptide TSH 3rd Generation 08/08/18 08/08/18 08/09/18 08:39 08:39 06:31 Hgb 8.8 L 8.5 L Sodium Creatinine 1.42 H Iron Troponin I B-Natriuretic Peptide TSH 3rd Generation 08/09/18 08/10/18 08/10/18 06:31 09:09 09:09 Hgb 7.9 L Sodium 135 L 134 L Creatinine 1.48 H 1.37 H Iron Troponin I B-Natriuretic Peptide TSH 3rd Generation EKG Reviewed by me: Yes (Tele - SR) Phys Exam - Physical Examination Constitutional: NAD HEENT: PERRLA, sclera anicteric, oral pharynx no lesions Neck: no nodes, no JVD, supple, full ROM Respiratory: no wheezing, no rales, no rhonchi, clear to auscultation bilateral S1, S2 Cardiovascular: RRR, no significant murmur, no rub, gallop Gastrointestinal: soft, non-tender, no distention, positive bowel sounds Musculoskeletal: no edema, pulses present Neurological: normal sensation, moves all 4 limbs Psychiatric: A&O x 3 Skin: normal turgor, cap refill <2 seconds Dx/Plan (1) Acute on chronic anemia Code(s): D64.9 - ANEMIA, UNSPECIFIED Status: Acute Comment: Eliquis on hold with suspicion of occult/slow GIB .S/P 1 unit PRBC this admission, Hgb remains low, serial H/H, hold all anticoagulation, continue Protonix 40mg BID (2) Acute on chronic combined systolic and diastolic CHF, NYHA class 4 Code(s): I50.43 - ACUTE ON CHRONIC COMBINED SYSTOLIC AND DIASTOLIC HRT FAIL Status: Acute Comment: D/C Lasix due to ALISHA (3) ALISHA (acute kidney injury) Code(s): N17.9 - ACUTE KIDNEY FAILURE, UNSPECIFIED Status: Acute Comment: Avoid nephrotoxic agent and limit contrast exposure, serial creatinine (4) Helicobacter pylori (H. pylori) infection Code(s): A04.8 - OTHER SPECIFIED BACTERIAL INTESTINAL INFECTIONS Status: Acute Comment: Start Clarithromycin, Metronidazole and continue Protonix 40mg BID (5) Acute respiratory failure with hypoxia Code(s): J96.01 - ACUTE RESPIRATORY FAILURE WITH HYPOXIA Status: Acute Comment: Continue O2 supplementation, wean off O2 as clinically indicated, resolving (6) Physical deconditioning Code(s): R53.81 - OTHER MALAISE Status: Chronic Comment: OOB with PT, fall risk precautions (7) Demand ischemia of myocardium Code(s): I24.8 - OTHER FORMS OF ACUTE ISCHEMIC HEART DISEASE Status: Acute Comment: No acute intervention, ASA - Plan plan discussed w/ family, continue antibiotics, PT/OT, 7th grade social studies teacher, out of bed/ambulate, DVT proph w/SCDs Stable currently -: Start Clarithromycin 500mg BID -: Start Metronidazole 500mg BID -: Protonix 40mg BID -: D/C Lasix * AM lab: BMP, CBC * Likely home in am
[2018-08-12] MEDS ORDERED: Dronedarone HCl 400 MG TAB PO SCH (17:00)
[2018-08-12] MEDS ORDERED: metroNIDAZOLE 500 MG TAB PO SCH (17:00)
[2018-08-12] MEDS ORDERED: Clarithromycin 500 MG TAB PO SCH (17:00)
[2018-08-12] MEDS: Insulin Regular 300 UNITS/3 ML VIAL SC PRN (17:38)
[2018-08-12] MEDS: Montelukast Sodium 10 mg Tablet PO SCH (20:16)
[2018-08-12] MEDS: Atorvastatin Calcium 10 MG TAB PO SCH (20:16)
[2018-08-12] MEDS: Pregabalin 75 MG CAP PO SCH (20:17)
[2018-08-13] MEDS: PROVENTIL INHALER 6.7 G (200 INHALATIONS) INH SCH ×3 (00:22→12:35)
[2018-08-13] MEDS: HYDROcodone/Acetaminophen 5/325 mg Tablet PO PRN ×2 (01:47→10:36)
[2018-08-13 06:03] LABS: Band 3 % (5-11); Eosinophils 2 % (0-10); Hemoglobin 7.6 g/dL (12.0-16.0); Lymphocytes 12 % (21-51); MDiff Complete? YES; Mean Corpuscular HGB CONC 30.5 g/dL (32.0-36.0); Mean Corpuscular Hemoglobin 23.4 pg (27.0-31.0); Mean Corpuscular Volume 76.8 fL (78.0-98.0); Monocytes 7 % (0-10); Neutrophil 76 % (42-75); Platelet Count 196 thou/uL (130-400); Platelet Morphology Comment Appears Adequate; Red Blood Cell (RBC) Count 3.23 mill/uL (4.20-5.40); White Blood Cell (WBC) Count 5.8 thou/uL (4.8-10.8)
[2018-08-13 06:15] LABS: Anion Gap 10 mmol/L (10-20); BUN (Urea Nitrogen) 39 mg/dL (9.8-20.1); Calc. Creatinine Clearance 42 mL/min (70-130); Carbon Dioxide 34 mmol/L (23-31); Chloride 91 mmol/L (98-107); Estimated GFR-MDRD 26; Glucose 129 mg/dL (83-110); Potassium 4.5 mmol/L (3.5-5.1); Sodium 130 mmol/L (136-145)
[2018-08-13] MEDS: Mometasone/Formoterol 120 PUFF INHALER INH SCH (06:55)
[2018-08-13 08:38] VITALS: BP 135/59; TEMP 97.9
[2018-08-13] MEDS ORDERED: metroNIDAZOLE 500 MG TAB PO SCH (09:00)
[2018-08-13] MEDS ORDERED: Clarithromycin 500 MG TAB PO SCH (09:00)
[2018-08-13] MEDS: FLUoxetine HCl 20 MG CAP PO SCH (10:35)
[2018-08-13] MEDS: Fish Oil 1,000 MG CAP PO SCH (10:35)
[2018-08-13] MEDS: Dronedarone HCl 400 MG TAB PO SCH (10:35)
[2018-08-13] MEDS: Aspirin Chewable 81 MG TAB PO SCH (10:37)
--- NOTE | 2018-08-14 03:27 | DIS ---
DATE OF ADMISSION: 08/06/2018 DATE OF DISCHARGE: 08/13/2018 DISCHARGE DIAGNOSES: 1. Acute on chronic microcytic anemia secondary to acute blood loss. 2. Acute on chronic combined systolic and diastolic congestive heart failure, [place] Heart Association class 4. 3. Acute kidney injury, improved. 4. Helicobacter pylori gastritis. 5. Acute hypoxic respiratory failure, resolved. 6. Physical deconditioning. 7. Demand ischemia of the myocardium. 8. Status post transfusion of 1 unit of packed red blood cells. CONSULTATIONS: 1. Dr. Jennings with GI Service. 2. Dr. Moss with Cardiology Service. PERTINENT LAB AND X-RAY FINDINGS: Creatinine ranged between 1.10 to 1.92. Estimated GFR ranged between 26 to 49. Magnesium level 1.7. Serum iron level 17, TIBC 445, percent saturation 4, transferrin 356. Total CK 365. Troponin I ranged between 0.241 to 0.465. BNP 1182, previously noted 260 on 06/27/2018. CBC showed a hemoglobin ranging between 7.6 to 8.8, MCV 77. Stool Hemoccult dated 08/06/2018, positive x1. Urine culture dated 08/06/2018 showed 25,000 to 50,000 colonies of normal lily. CT angiogram of the chest dated 08/06/2018 showed no evidence of pulmonary embolus. EGD/colonoscopy dated 08/10/2018 showed two gastric ulcers, 5 mm to 6 mm in diameter with inflammation. Two small vascular ectasias in the ascending colon and cecum status post cauterization. Status post polypectomy in the hepatic flexure x1. Endoscopic biopsies dated 08/10/2018 showed H. pylori, chronic active gastritis. HOSPITAL COURSE: The patient was initially admitted after presenting with chest pain. The patient underwent extensive evaluation during her hospital course including evaluation by the Cardiology Service. Recommendations per Cardiology were for medical management which the patient received throughout the hospital course. The patient was also noted with acute on chronic anemia with suspected GI blood loss with Hemoccult positive x1. The patient was evaluated by the GI Service, undergoing EGD and colonoscopy showing evidence of gastritis as well as vascular ectasias in the colon. The patient received 1 unit of packed red blood cells during the hospital course and was initiated on treatment for H. pylori with clarithromycin and metronidazole in addition to Protonix 40 mg twice daily. Serial hemoglobin assessment showed persistently low values, however, these were stable when compared over approximate 5-day course. The patient was discontinued on her home Eliquis with recommendations to hold the anticoagulation until followup with GI Service. The patient overall remained clinically stable during the hospital course, ambulating with rolling walker and some independent ambulation. The patient was deemed an appropriate candidate for ongoing home health services and has been approved for home health including physical therapy after discharge. I have examined the patient at the time of discharge and discussed followup instructions. The patient verbalized understanding and in agreement, ready for discharge on 08/13/2018. DISCHARGE MEDICATIONS: 1. Aspirin 81 mg p.o. daily. 2. Symbicort 160/4.5 one puff inhaled b.i.d. 3. [place]-3 fatty acids 1 capsule p.o. b.i.d. 4. Prozac 40 mg p.o. daily. 5. Flonase 2 sprays in each naris daily. 6. NovoLog 70/30, 20 units subcutaneously q.a.m. and 20 units subcutaneously at bedtime. 7. Metoprolol-XL 12.5 mg p.o. at bedtime. 8. Singulair 10 mg p.o. at bedtime. 9. Lyrica 300 mg p.o. at bedtime. 10. Simvastatin 20 mg p.o. at bedtime. 11. Multivitamin 1 tablet p.o. b.i.d. 12. Eliquis 5 mg p.o. b.i.d., hold until followup with GI Service. 13. Clarithromycin 500 mg p.o. b.i.d. x2 weeks. 14. Metronidazole 500 mg p.o. b.i.d. x2 weeks. 15. Protonix 40 mg p.o. b.i.d. x2 weeks, then 40 mg p.o. daily. 16. Multaq 400 mg p.o. b.i.d. 17. Ferrous sulfate 325 mg p.o. b.i.d. 18. Lasix 20 mg p.o. daily, may resume on 08/16/2018. FOLLOWUP: The patient is to follow up with her primary care provider, Kristi Weber on 08/19/2018 at 9:30 a.m. The patient may follow up with Dr. Parisi on 08/20/2018 at 10:30 a.m. The patient will follow up with Dr. Zaire Jennings with GI Service and call his office for appointment time and date. CONDITION ON DISCHARGE: Stable. ACTIVITY: Ad-mitchel. SPECIAL INSTRUCTIONS: The patient will receive home health services through [facility] after discharge. DIET: Heart healthy and ADA. CODE STATUS: Full. DISPOSITION: To home on 08/13/2018. TIME SPENT: Total time preparing and coordinating discharge is 40 minutes. Job ID: [id number]
== END 2018-08-13 15:01 | disposition home or self-care (01) | DRG 811 ==
LOC: ERS 11:03 → 2NO 13:33
PROVIDERS: ADMIT Internal Medicine; ATTEND Internal Medicine
PROC: 30233N1 Transfusion of Nonautologous Red Blood Cells into Peripheral Vein, Percutaneous Approach (ICD-10-PCS; 2018-08-06)
PROC: 0DB98ZX Excision of Duodenum, Via Natural or Artificial Opening Endoscopic, Diagnostic (ICD-10-PCS; principal; 2018-08-10)
PROC: 0DB78ZX Excision of Stomach, Pylorus, Via Natural or Artificial Opening Endoscopic, Diagnostic (ICD-10-PCS; 2018-08-10)
PROC: 0W3P8ZZ Control Bleeding in Gastrointestinal Tract, Via Natural or Artificial Opening Endoscopic (ICD-10-PCS; 2018-08-10)
PROC: 0DBL8ZZ Excision of Transverse Colon, Via Natural or Artificial Opening Endoscopic (ICD-10-PCS; 2018-08-10)
DX: D62 Acute posthemorrhagic anemia (principal); I21.A1 Myocardial infarction type 2; I50.43 Acute on chronic combined systolic (congestive) and diastolic (congestive) heart failure; J96.01 Acute respiratory failure with hypoxia; I13.0 Hypertensive heart and chronic kidney disease with heart failure and stage 1 through stage 4 chronic kidney disease, or unspecified chronic kidney disease; N17.9 Acute kidney failure, unspecified; K56.699 Other intestinal obstruction unspecified as to partial versus complete obstruction; Z87.11 Personal history of peptic ulcer disease; K29.70 Gastritis, unspecified, without bleeding; D50.9 Iron deficiency anemia, unspecified; K25.9 Gastric ulcer, unspecified as acute or chronic, without hemorrhage or perforation; I25.10 Atherosclerotic heart disease of native coronary artery without angina pectoris; I35.0 Nonrheumatic aortic (valve) stenosis; I05.0 Rheumatic mitral stenosis; E11.22 Type 2 diabetes mellitus with diabetic chronic kidney disease; I48.0 Paroxysmal atrial fibrillation; K57.90 Diverticulosis of intestine, part unspecified, without perforation or abscess without bleeding; J45.909 Unspecified asthma, uncomplicated; M19.90 Unspecified osteoarthritis, unspecified site; E11.42 Type 2 diabetes mellitus with diabetic polyneuropathy; N18.3 Chronic kidney disease, stage 3 (moderate); E78.5 Hyperlipidemia, unspecified; B96.81 Helicobacter pylori [H. pylori] as the cause of diseases classified elsewhere; Z79.51 Long term (current) use of inhaled steroids; Z79.82 Long term (current) use of aspirin; Z79.899 Other long term (current) drug therapy; Z79.01 Long term (current) use of anticoagulants; Z95.1 Presence of aortocoronary bypass graft; Z88.0 Allergy status to penicillin; Z91.011 Allergy to milk products; Z79.4 Long term (current) use of insulin; E11.51 Type 2 diabetes mellitus with diabetic peripheral angiopathy without gangrene; K63.5 Polyp of colon; J45.998 Other asthma; Z90.710 Acquired absence of both cervix and uterus; K31.819 Angiodysplasia of stomach and duodenum without bleeding
CPT/HCPCS: 36415; 36416; 36430; 71045; 71275; 80048; 80053; 81003; 81015; 82274; 82550; 82553; 82728; 83540; 83550; 83690; 83735; 83880; 84466; 84484; 85007; 85014; 85018; 85025; 85027; 85046; 85049; 85379; 86850; 86900; 86901; 87086; 88305; 88312; 93005; 93798; 96374; J1815; J1940; J2001; J2704; J3490; P9016; Q9966

== ENCOUNTER 2018-11-18 19:22 | Emergency (ER) | payer MEDICARE, OTHER ==
[2018-11-18 20:06] LABS: Bilirubin Negative (Negative); Blood, Urine Small (Negative); Glucose, Urine (Dipstick) Negative (Negative); Leukocyte Small (Negative); Nitrite Negative (Negative); Protein, Urine (Dipstick) 30 mg/dL (Neg-Trace)
[2018-11-18 20:21] LABS: Clarity Clear (Clear)
[2018-11-18 20:22] LABS: Bacteria/HPF 2+ HPF (None Seen); RBC/HPF 0-3 HPF (0-3)
[2018-11-18 21:25] LABS: #Eosinphils 0.1 thou/uL (0.0-0.7); #Monocytes 0.8 thou/uL (0.11-0.59); #Neutrophils 4.6 thou/uL (1.40-6.50); %Basophils 0.4 % (0.0-1.0); %Eosinophils 1.6 % (0.0-10.0); %Lymphocytes 15.3 % (21.0-51.0); %Monocytes 12.3 % (0.0-10.0); %Neutrophils 70.4 % (42.0-75.0); Hemoglobin 13.8 g/dL (12.0-16.0); Mean Corpuscular HGB CONC 31.8 g/dL (32.0-36.0); Mean Corpuscular Hemoglobin 28.7 pg (27.0-31.0); Mean Corpuscular Volume 90.3 fL (78.0-98.0); Mean Platelet Volume 10.5 fL (7.4-10.4); Platelet Count 155 thou/uL (130-400); RBC Distribution Width 19.3 % (11.5-14.5); Red Blood Cell (RBC) Count 4.79 mill/uL (4.20-5.40); White Blood Cell (WBC) Count 6.5 thou/uL (4.8-10.8)
[2018-11-18 21:27] LABS: ALT (SGPT) 16 U/L (8-55); AST (SGOT) 20 U/L (5-34); Albumin 4.2 g/dL (3.4-4.8); Alkaline Phosphatase 67 U/L (40-150); Anion Gap 14 mmol/L (10-20); BUN (Urea Nitrogen) 13 mg/dL (9.8-20.1); Bilirubin, Total 1.7 mg/dL (0.2-1.2); Calc. Creatinine Clearance 0 mL/min (70-130); Calcium 9.7 mg/dL (7.8-10.44); Carbon Dioxide 26 mmol/L (23-31); Chloride 101 mmol/L (98-107); Estimated GFR-MDRD 61; Globulin 3.3 g/dL (2.4-3.5); Glucose 94 mg/dL (83-110); Potassium 4.3 mmol/L (3.5-5.1); Protein, Total 7.5 g/dL (6.0-8.3); Sodium 137 mmol/L (136-145)
[2018-11-18] MEDS ORDERED: Acetaminophen 500 MG TAB ONE (22:30)
[2018-11-18] MEDS ORDERED: Metoclopramide HCl 10 MG/2 ML VIAL ONE (22:30)
[2018-11-18] MEDS ORDERED: diphenhydrAMINE 50 MG/ML VIAL ONE (22:30)
--- NOTE | 2018-11-18 22:42 | RAD ---
PORTABLE CHEST ONE VIEW: 11/18/18 at 10:19 p.m. HISTORY: Headache, shortness of breath, fever, nausea. FINDINGS: Comparison made with exam of 08/06/18. Changes of median sternotomy are again seen. The heart size is normal. The lungs are well expanded wi thout lobar consolidation, pneumothoraces, mandeep pulmonary edema, or pleural effusions. IMPRESSION: No acute process. POS: [facility]
== END 2018-11-19 00:10 | disposition home or self-care (01) ==
LOC: ERS 19:22
DX: N39.0 Urinary tract infection, site not specified (principal); B34.9 Viral infection, unspecified; R51 Headache; I11.0 Hypertensive heart disease with heart failure; I50.9 Heart failure, unspecified; E11.40 Type 2 diabetes mellitus with diabetic neuropathy, unspecified; E78.5 Hyperlipidemia, unspecified; M19.90 Unspecified osteoarthritis, unspecified site; J45.909 Unspecified asthma, uncomplicated; F41.9 Anxiety disorder, unspecified; Z87.891 Personal history of nicotine dependence; Z86.73 Personal history of transient ischemic attack (TIA), and cerebral infarction without residual deficits; Z79.4 Long term (current) use of insulin; Z79.899 Other long term (current) drug therapy; Z79.82 Long term (current) use of aspirin; Z79.01 Long term (current) use of anticoagulants
CPT/HCPCS: 36415; 36416; 71045; 80053; 81003; 81015; 83880; 84484; 85025; 87804; 93005; 96365; 96375; J1200; J2765

== ENCOUNTER 2019-01-24 09:09 | Outpatient (CLI) | payer MEDICARE, MEDICAID ==
--- NOTE | 2019-01-24 11:45 | CT ---
CT arteriogram abdomen with IV contrast and 3-D imaging CT arteriogram pelvis with IV contrast and 3-D imaging CT runoff bilateral lower extremities with IV contrast and 3-D imaging HISTORY: Leg ulceration. Vascular disease. FINDINGS: Mild scarring at the lung bases. Calcification of the mitral valve. Tiny low-density lesion of the right adrenal gland is stable. Left renal cysts are unchanged. Degenerative changes throughout the lumbar spine. Small hyperdense stones within the dependent portion of the gallbladder lumen. Prominent calcification throughout the arterial structures. Origins of the visceral arteries of the a bdomen are patent. At least 2 main bilateral renal arteries. Prominent calcification and significant stenosis at the aortic bifurcation and the proximal aspect of each common iliac artery. Patent stents along the course of the right common iliac artery. Short segment focus of high-grade st enosis near the origin of the external iliac artery. Short segment focus of high-grade stenosis at the common femoral artery at the level of the right hip joint. Postoperative changes at the right mauro in. Prominent calcification with multiple focal areas of high-grade stenosis along the course of the femo ral artery. Contrast opacification limited due to stenoses and outlining of imaging in relation to contrast. There is collateralization with opacification of the popliteal artery, showing multiple are as of high-grade stenosis. Some contrast within the two-vessel runoff to the right lower leg primarily via the anterior tibial and peroneal arteries. Patent left common iliac stents. Atherosclerosis with mild stenosis at the left external iliac and co mmon femoral arteries. Long segment occlusion of the proximal to mid left femoral artery with reconstitution at the level of the adductor hiatus. Multilevel stenoses along the popliteal artery. S scott vessel runoff to the left lower leg primarily via the posterior tibial artery. IMPRESSION: Severe atherosclerosis. Bilateral common iliac artery stents with high-grade stenoses at the aortic bifurcation involving each common iliac artery origin. Significant multifocal stenoses involving the runoff to each leg. Long segment occlusion of the left femoral artery. Cholelithiasis.
[2019-01-24] MEDS ORDERED: Iopamidol 370 76% 100 ML VIAL ONE (13:12)
== END 2019-01-24 09:10 | disposition home or self-care (01) ==
LOC: CT 09:09
PROVIDERS: ATTEND Internal Medicine Cardiovascular Disease
DX: L97.902 Non-pressure chronic ulcer of unspecified part of unspecified lower leg with fat layer exposed (principal); I70.303 Unspecified atherosclerosis of unspecified type of bypass graft(s) of the extremities, bilateral legs; K80.20 Calculus of gallbladder without cholecystitis without obstruction
CPT/HCPCS: 75635; 82565; Q9967

== ENCOUNTER 2019-01-26 10:20 | Inpatient (IN) | payer MEDICARE, MEDICAID ==
[2019-01-26] MEDS ORDERED: Atropine Sulfate 1 mg/10 ml Syringe ONE (10:41)
[2019-01-26 10:59] LABS: #Eosinphils 0.1 thou/uL (0.0-0.7); #Lymphocytes 0.9 thou/uL (1.20-3.40); #Monocytes 0.5 thou/uL (0.11-0.59); #Neutrophils 5.5 thou/uL (1.40-6.50); %Basophils 0.5 % (0.0-1.0); %Eosinophils 1.2 % (0.0-10.0); %Lymphocytes 12.6 % (21.0-51.0); %Monocytes 7.4 % (0.0-10.0); %Neutrophils 78.2 % (42.0-75.0); Hemoglobin 14.5 g/dL (12.0-16.0); Mean Corpuscular HGB CONC 33.1 g/dL (32.0-36.0); Mean Corpuscular Hemoglobin 31.6 pg (27.0-31.0); Mean Corpuscular Volume 95.7 fL (78.0-98.0); Platelet Count 171 thou/uL (130-400); RBC Distribution Width 14.3 % (11.5-14.5); Red Blood Cell (RBC) Count 4.58 mill/uL (4.20-5.40)
--- NOTE | 2019-01-26 11:02 | RAD ---
XR Chest 1 View Portable History: Preoperative evaluation Comparison: Radiograph November 18, 2018 Findings: There are defibrillator pads projecting over the right and left hemithoraces. Heart size is enlarged. Mild pulmonary edema. Small effusions. No pneumothorax. No acute osseous abnormality. Impression: 1. Cardiomegaly with small effusions and pulmonary edema. 2. Defibrillator pads project over the right and left hemithoraces.
[2019-01-26 11:08] LABS: INR-International Normal Ratio 1.3
[2019-01-26 11:09] LABS: PTT 37.2 SEC (22.9-36.1)
[2019-01-26 11:21] LABS: ALT (SGPT) 20 U/L (8-55); AST (SGOT) 28 U/L (5-34); Albumin 4.4 g/dL (3.4-4.8); Alkaline Phosphatase 87 U/L (40-150); Anion Gap 13 mmol/L (10-20); BUN (Urea Nitrogen) 30 mg/dL (9.8-20.1); Bilirubin, Total 0.8 mg/dL (0.2-1.2); Calc. Creatinine Clearance 0 mL/min (70-130); Calcium 9.2 mg/dL (7.8-10.44); Carbon Dioxide 25 mmol/L (23-31); Chloride 105 mmol/L (98-107); Estimated GFR-MDRD 37; Globulin 2.6 g/dL (2.4-3.5); Glucose 87 mg/dL (83-110); Potassium 5.3 mmol/L (3.5-5.1); Sodium 138 mmol/L (136-145)
[2019-01-26] MEDS ORDERED: Iopamidol 370 76% 50 ML VIAL FS ONE (11:34)
[2019-01-26] MEDS ORDERED: Sodium Chloride 0.9% 1,000 ML IV SCH (13:53)
[2019-01-26] MEDS ORDERED: Ondansetron ODT 4 MG TAB SL PRN (13:53)
[2019-01-26] MEDS ORDERED: Ondansetron PF 4 MG/2 ML Vial IVP PRN ×2 (13:53→14:43)
[2019-01-26 14:35] LABS: Troponin I Less than 0.010 ng/mL (< 0.028)
[2019-01-26] MEDS ORDERED: HumaLOG 300 UNITS/3 ML VIAL SC PRN (14:43)
[2019-01-26] MEDS ORDERED: Acetaminophen 325 MG TAB PO PRN (14:43)
[2019-01-26] MEDS ORDERED: Ondansetron ODT 4 MG TAB PO PRN (14:43)
[2019-01-26] MEDS ORDERED: Dextrose 5% in Water 1,000 ML IV PRN (14:43)
[2019-01-26] MEDS ORDERED: hydrALAZINE 20 MG/ML VIAL SLOW IVP PRN (14:43)
[2019-01-26] MEDS ORDERED: Dextrose 50% Abboject 50 ML SYRINGE SLOW IVP PRN (14:43)
[2019-01-26] MEDS ORDERED: Lidocaine 1% (PF) 30 ML VIAL ONE (15:09)
[2019-01-26] MEDS ORDERED: Fentanyl 100 MCG/2 ML VIAL ONE (15:50)
--- NOTE | 2019-01-26 16:17 | HP ---
PRIMARY CARE PHYSICIAN: Dr. Weber. CHIEF COMPLAINT: "My heart rate is going too slow." HISTORY OF PRESENT ILLNESS: Ms. Hadley is a very pleasant 73-year-old female, who has a history of atrial fibrillation as well as hypertension and diabetes mellitus. She also has fairly significant peripheral vascular disease as well. She had gone to have an appointment to look at an infection on her toe and she was in the office with her physician and she noticed that her heart rate was slow. She noticed that it was in the 30s and Dr. Parisi was called and he recommended that she come to the emergency room. In the ER, it was noted that her heart rate was in the 30s and transcutaneous pacers were placed and the patient is being admitted to the ICU for severe bradycardia. When asked if the patient had any symptoms, she says that she has noticed that she has felt a little bit weaker lately. She also feels a little bit dizzy, but denies any chest pain. She has noted some shortness of breath, but she has stated that this has been present for some time. No nausea, no vomiting, and no palpitations. REVIEW OF SYSTEMS: CONSTITUTIONAL: There has been no fevers or chills. No night sweats. No weight loss. HEENT: No headache. She noticed some dizziness. No visual changes. No sore throat, rhinorrhea, or neck pain. No adenopathy. PULMONARY: No hemoptysis. No cough. No wheezing. CARDIOVASCULAR: As the history of present illness. GASTROINTESTINAL: No abdominal pain. No nausea. No vomiting. No change in bowels. GENITOURINARY: No urinary frequency, hematuria, or hesitancy. NEUROLOGIC: No focal weakness or numbness. No seizures. PSYCHIATRIC: No symptoms of anxiety or depression. MUSCULOSKELETAL: No muscle pains, weakness, or joint pains. SKIN AND INTEGUMENT: No skin changes. No rash. PAST MEDICAL HISTORY: Significant for atrial fibrillation, asthma, hypertension, diabetes mellitus type 2, coronary artery disease, peripheral neuropathy, hyperlipidemia, depression, chronic diastolic heart failure, chronic kidney disease stage 3, as well as cataracts. PAST SURGICAL HISTORY: She has had a hysterectomy, tonsillectomy, four-vessel CABG, surgery for peripheral vascular disease, and bilateral carotid endarterectomies. FAMILY HISTORY: Significant for coronary artery disease and rectal cancer. SOCIAL HISTORY: She is a nonsmoker and nondrinker. She is not . Code status is full code and her daughter, Maddie is her surrogate decision maker. ALLERGIES: TO PENICILLIN AND LACTOSE AND SHE IS NOT REALLY SURE WHAT THE REACTION IS. MEDICATIONS: Per medications as taken from her records include, 1. NovoLog insulin 70/30, 20 units in the morning, 20 in the p.m. 2. Eliquis 5 mg twice a day. 3. Multaq 400 mg twice daily. 4. Vitamin D3 of 2000 units once a day. 5. Simvastatin 20 mg daily. 6. Flonase nasal spray intranasally daily. 7. Tylenol 325 mg as needed. 8. Symbicort 160/4.5 two puffs inhaled twice a day. 9. Aspirin 81 mg daily. 10. Proventil 2 puffs q.4 as needed. 11. Singulair 10 mg daily. 12. Lyrica 300 mg daily. 13. Fluoxetine 40 mg daily. 14. Fish oil 1200 mg daily. PHYSICAL EXAMINATION: GENERAL: She is alert and oriented. She appears to be in no acute distress. She is well developed and well nourished. VITAL SIGNS: Blood pressure was 98/54, heart rate 36, respiratory rate of 18, and temperature was 98.1. HEENT: Pupils are equal, round, and reactive. Extraocular muscles are intact. Her sclerae anicteric. Throat, no erythema, no exudates. NECK: No adenopathy. She did have some bruits on the right. CARDIOVASCULAR: She has normal S1 and S2. There is no S3 or S4. Heart rate is bradycardic. No murmurs. ABDOMEN: Obese. It is soft, nontender, and nondistended. Positive for bowel sounds. No rebound or guarding. EXTREMITIES: There is no clubbing or cyanosis. No edema. She does have a decrease in her dorsalis pedis pulses bilaterally. SKIN AND INTEGUMENT: She does have some mild erythema on the right lower extremity and a small ulceration on the lower right leg as well as under the toe on the first toe. No other lesions. LABORATORY DATA: The white blood cell count 7, hemoglobin 14.5, hematocrit is 43.8, platelet is 171. INR is 1.3. Sodium 138, potassium 5.3, chloride is 105, CO2 is 25, BUN of 30, creatinine 1.39, glucose is 87. TSH was 2.49. On her EKG, it is bradycardic. The rhythm is undetermined, and she does have an incomplete left bundle-branch block, this is by my reading. She also had a chest x-ray, it is actually rotated. There is some mild cardiomegaly. Sternotomy wires are in place and there is some evidence of cephalization and this is by my reading. ASSESSMENT: 1. This is a pleasant 73-year-old female, who presents to the emergency room with severe bradycardia with heart rates in the 30s, which has been persistent. She is not on any medications, which should precipitate this. The plan is to place her in the CCU and Cardiology has already been consulted from the ER. The plan is for emergent pacemaker placement. 2. Diabetes mellitus. While she is n.p.o., we will place her on a sliding scale insulin. Once she has had the pacemaker placed and is able to take oral medications, we will restart her insulin, the dose depending on how well she is eating along with the sliding scale. 3. Hypertension. We will place her on medications to aid in blood pressure management and further recommendations to follow. Job ID: [id number]
--- NOTE | 2019-01-26 17:55 | CON ---
DATE OF CONSULTATION: 01/26/2019 HISTORY OF PRESENT ILLNESS: I am seeing Ms. Courtney at our 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 Her problems are: 1. Newly found complete AV block. 2. History of coronary artery disease with preserved LVEF on KRISHNA, June 2018. 3. History of paroxysmal atrial fibrillation, well suppressed with Multaq and on Eliquis. 4. History of GI bleed in the past requiring a unit of blood, but no negative results of gastroscopy and colonoscopy. 5. History of coronary artery disease, status post bypass surgery in the past. a. Left heart catheterization from 04/23/2015 demonstrates patent grafts. 6. Mild aortic stenosis. 7. Insulin-dependent diabetes mellitus type 2 and hypertension. ALLERGIES: PENICILLINS AND LACTOSE. MEDICATIONS: At home included: 1. Atropine. 2. Sodium chloride. 3. Ondansetron. 4. Bacitracin. 5. Cefazolin. 6. Lidocaine. 7. Prevnar. 8. Eliquis 5 mg twice a day. 9. Multaq 400 mg twice a day. 10. Lovastatin. 11. Symbicort. 12. Albuterol. SUBJECTIVE: Ms. Hadley is here with progressive dyspnea, malaise, and fatigue. She was noted to have more fatigue and tiredness for the last couple of days. In prior to that, she has some dyspnea to exertion. She has class 2-3 functional status, chronic. She does not pass out, but has significant dizzy spells. No PND or orthopnea. No lower extremity edema. Rest of 12-point review of system otherwise unremarkable. PAST MEDICAL HISTORY: As above. The patient was hospitalized in August of this year with anemia possibly GI blood loss, but colonoscopy and EGD revealed some gastritis and vascular ectasias in the colon. She was placed on Protonix and transfused and eventually the Eliquis was restarted, currently hemoglobin is stable. She also has history of peripheral vascular disease with recent peripheral vascular procedure by Dr. Parisi. She has history of diastolic heart failure, well compensated and chronic kidney disease stage 3. SOCIAL HISTORY: The patient denies smoking, EtOH, or drug abuse. She is not . Code status is full code. Her daughter, Bri, is her surrogate decision maker. FAMILY HISTORY: Significant for father having coronary artery disease and rectal cancer. OBJECTIVE DATA: VITAL SIGNS: Blood pressure 153/54, heart rate 32, respiratory rate is 14, and temperature 97.7 degrees Fahrenheit. GENERAL: Alert and oriented elderly woman, in no apparent distress. NECK: Supple. Jugular veins are distended. CHEST: Coarse without crackles. HEART: Sounds are bradycardic. No murmur or gallop. ABDOMEN: Benign. Bowel sounds are positive. EXTREMITIES: Lower extremities without edema, clubbing, or cyanosis. DATABASE: EKG was reviewed, revealing sinus rhythm with complete AV block, slow junctional escape in the 30s is noted, somewhat widened QRS. LABORATORY DATA: White cell count 7, hemoglobin 14.5, platelet count is 171. INR 1.3. Sodium 138, potassium 5.3, BUN is 30, creatinine is 1.39. AST is 28 and 20. TSH is 2.4976. Chest x-ray from 01/26/2019 this morning reveals cardiomegaly, small effusion, no pneumothorax. ASSESSMENT AND PLAN: Ms. Hadley is a pleasant 73-year-old woman with history of remote bypass surgery, preserved LVEF, diabetes, hypertension, paroxysmal atrial fibrillation suppressed with Multaq and on Eliquis, who presenting with marked fatigue and complete AV block with marked bradycardia without any additional reason for this to be occurring. This may be senile, AV josseline or disease. I doubt the Multaq alone is the main reason for the bradycardia. In the past, she has been able to tolerate this medication without difficulty. We will discuss with the patient and daughter about potential treatment options. I think it is reasonable to proceed with pacemaker, hence her Multaq will be necessary in the future as well for atrial fibrillation suppression. Hence, the marked bradycardia would like to proceed with that today. We will continue holding Eliquis, and we discussed the risk of infection, bleeding, pneumothorax, tamponade, local hematoma, lead dislodgement, and device malfunctions as well. They understand and willing to proceed. We will schedule her for pacemaker implant promptly. Job ID: [id number]
[2019-01-26 18:14] LABS: Troponin I 0.024 ng/mL (< 0.028)
[2019-01-27] MEDS ORDERED: Albuterol Sulfate 1.25 MG/3 ML NEB NEB PRN (02:35)
[2019-01-27 04:37] LABS: #Eosinphils 0.1 thou/uL (0.0-0.7); #Lymphocytes 0.8 thou/uL (1.20-3.40); #Monocytes 0.7 thou/uL (0.11-0.59); #Neutrophils 4.9 thou/uL (1.40-6.50); %Basophils 0.4 % (0.0-1.0); %Eosinophils 1.7 % (0.0-10.0); %Lymphocytes 12.7 % (21.0-51.0); %Monocytes 10.5 % (0.0-10.0); %Neutrophils 74.7 % (42.0-75.0); Hemoglobin 12.1 g/dL (12.0-16.0); Mean Corpuscular HGB CONC 33.8 g/dL (32.0-36.0); Mean Corpuscular Hemoglobin 32.6 pg (27.0-31.0); Mean Corpuscular Volume 96.4 fL (78.0-98.0); Mean Platelet Volume 7.9 fL (7.4-10.4); Platelet Count 149 thou/uL (130-400); RBC Distribution Width 14.2 % (11.5-14.5); Red Blood Cell (RBC) Count 3.73 mill/uL (4.20-5.40); White Blood Cell (WBC) Count 6.6 thou/uL (4.8-10.8)
[2019-01-27 04:55] LABS: Anion Gap 13 mmol/L (10-20); BUN (Urea Nitrogen) 25 mg/dL (9.8-20.1); Calc. Creatinine Clearance 77 mL/min (70-130); Calcium 8.4 mg/dL (7.8-10.44); Carbon Dioxide 24 mmol/L (23-31); Chloride 108 mmol/L (98-107); Estimated GFR-MDRD 50; Glucose 95 mg/dL (83-110); Potassium 4.7 mmol/L (3.5-5.1); Sodium 140 mmol/L (136-145)
[2019-01-27] MEDS ORDERED: Lidocaine 1% (PF) 30 ML VIAL ONE (06:47)
[2019-01-27] MEDS: PROVENTIL INHALER 6.7 G (200 INHALATIONS) INH SCH ×4 (07:06→23:19)
[2019-01-27] MEDS: Mometasone/Formoterol 120 PUFF INHALER INH SCH ×2 (07:07→19:08)
[2019-01-27] MEDS ORDERED: Midazolam HCl 2 mg/2 ml Vial ONE (07:49)
[2019-01-27] MEDS ORDERED: Fentanyl 100 MCG/2 ML VIAL ONE ×2 (07:49→08:39)
[2019-01-27] MEDS ORDERED: Morphine 2 MG/ML SYRINGE SLOW IVP PRN (10:42)
[2019-01-27] MEDS ORDERED: Acetaminophen/Codeine 30-300mg Tablet PO SCH (10:45)
[2019-01-27] MEDS ORDERED: Furosemide 40 MG/4 ML VIAL SLOW IVP SCH (12:30)
[2019-01-27] MEDS ORDERED: Prevnar 13-Val Conj/PF 0.5 ML SYRINGE IM ONE (14:15)
[2019-01-27] MEDS: Acetaminophen/Codeine 30-300mg Tablet PO PRN ×2 (15:08→20:29)
[2019-01-27] MEDS: Morphine 2 MG/ML SYRINGE SLOW IVP PRN (16:09)
--- NOTE | 2019-01-27 17:32 | PDOC.HOSPP ---
- Subjective Encounter Date: 01/27/19 Encounter Time: 11:27 Subjective: 73 y/o female with CAD s/p CABG, PVD, A fib, DM and others admitted with severe bradycardia associated with generalized weakness, exertional dyspnea and dizziness. Found to have complete heart block and had Pacemaker placement earlier today. No new problem. - Objective Vital Signs & Weight: Vital Signs (12 hours) Temp Pulse Ox 01/27/19 16:00 97.7 F 01/27/19 12:00 97.8 F 01/27/19 10:00 97.7 F 01/27/19 09:20 95 01/27/19 07:08 99 Weight Admit Weight 229 lb 0.964 oz Weight 222 lb 14.197 oz Most Recent Monitor Data Heart Rate from ECG 60 NIBP 141/41 NIBP BP-Mean 74 Respiration from ECG 19 SpO2 92 I&O: 01/26/19 01/27/19 01/28/19 06:59 06:59 06:59 Intake Total 1183 840 Output Total 2950 2400 Balance -1767 -1560 Result Diagrams: 01/27/19 04:18 01/27/19 04:17 Additional Labs: Accuchecks 01/27/19 01/27/19 01/26/19 06:35 00:11 20:23 POC Glucose 92 161 H 177 H 01/26/19 17:11 POC Glucose 85 Hospitalist ROS - Medication Medications: Active Medications Generic Name Dose Route Start Last Admin Trade Name Freq PRN Reason Stop Dose Admin Acetaminophen 650 mg 01/26/19 14:43 01/26/19 23:59 Tylenol PO 650 mg Q4H PRN Administration Headache/Fever/Mild Pain (1-3) Acetaminophen/Codeine Phosphate 1 tab 01/27/19 10:41 01/27/19 15:08 Tylenol #3 PO 1 tab Q4H PRN Administration Mild Pain (1-3) Albuterol Sulfate 2 puff 01/27/19 07:00 01/27/19 13:53 Proventil Hfa INH 2 puff [id number] ISIDORO Administration Mometasone Furoate/Formoterol Fumar 1 puff 01/27/19 06:30 01/27/19 07:07 Dulera 200 Mcg/5 Mcg Inhaler INH 1 puff BID-RT ISIDORO Administration Morphine Sulfate 2 mg 01/27/19 10:43 01/27/19 16:09 Morphine SLOW IVP 2 mg Q2H PRN Administration Severe Pain (8-10) Ondansetron HCl 4 mg 01/26/19 14:43 01/27/19 16:09 Zofran IVP 4 mg Q6H PRN Administration Nausea/Vomiting - Exam General Appearance: awake alert Eye: anicteric sclera ENT: normocephalic atraumatic Neck: supple Heart: RRR Respiratory: no ronchi Respiratory - other findings: Fair air entry bilaterally Gastrointestinal: non-tender, non-distended, normal bowel sounds Gastrointestinal - other findings: obese Extremities: no edema Neurological: cranial nerve grossly intact Psychiatric: A&O x 3 Hosp A/P (1) Complete heart block Code(s): I44.2 - ATRIOVENTRICULAR BLOCK, COMPLETE Status: Acute (2) Chronic kidney disease, stage 3 Code(s): N18.3 - CHRONIC KIDNEY DISEASE, STAGE 3 (MODERATE) Status: Acute (3) CAD (coronary artery disease) Code(s): I25.10 - ATHSCL HEART DISEASE OF [place] CORONARY ARTERY W/O ANG PCTRS Status: Chronic Qualifiers: (4) DM type 2 (diabetes mellitus, type 2) Status: Chronic (5) HTN (hypertension) Code(s): I10 - ESSENTIAL (PRIMARY) HYPERTENSION Status: Chronic Qualifiers: (6) Paroxysmal a-fib Code(s): I48.0 - PAROXYSMAL ATRIAL FIBRILLATION Status: Chronic (7) Physical deconditioning Code(s): R53.81 - OTHER MALAISE Status: Chronic (8) ALISHA (acute kidney injury) Code(s): N17.9 - ACUTE KIDNEY FAILURE, UNSPECIFIED Status: Acute - Plan Continue monitoring. Clode monitoring in the ICU. Continue current medication Follow CBC and renal function
--- NOTE | 2019-01-27 19:46 | CON ---
DATE OF CONSULTATION: 01/27/2019 SERVICE: Pulmonary Medicine. REASON FOR CONSULTATION: ICU patient. HISTORY OF PRESENT ILLNESS: The patient is a 73-year-old white female with past medical history significant for slow heart rate. This was identified by her primary care physician, who called Cardiology. They had directed her to the emergency department. Otherwise, the patient was in her usual state of health. She was having a little bit of nausea come and go. She was not having any fevers or chills. She was coughing up a little bit of clear phlegm. She did not have any syncopal events or vomiting. She did not have any diarrhea. She is not having any hot, red, swollen joints, or arthralgias. She does have a nonhealing lesion on her foot, which looks clean, dry, and intact. She has severe diabetes with neuropathy. This is the reason for that. She is also being worked up for peripheral vascular disease. She is hoping that Dr. Parisi can restore good blood flow to the right leg. PAST MEDICAL HISTORY: 1. Atrial fibrillation. 2. Asthma. 3. Hypertension. 4. Dyslipidemia. 5. Type 2 diabetes mellitus. 6. Coronary artery disease. 7. Peripheral vascular disease. 8. Neuropathy. 9. Major depressive disorder. 10. Chronic diastolic heart failure. 11. Chronic kidney disease, stage 3. 12. Cataracts. PAST SURGICAL HISTORY: 1. Hysterectomy. 2. Tonsillectomy. 3. Coronary artery bypass graft x4 vessels. 4. Carotid endarterectomy, bilateral. 5. Surgery for peripheral vascular disease. FAMILY HISTORY: Noncontributory. SOCIAL HISTORY: Negative for alcohol, tobacco, or illicit drug use. She has no exposure to chemicals, dust, asbestos, or tuberculosis. ALLERGIES: PENICILLIN AND LACTULOSE. MEDICATIONS: List of her inpatient medications was reviewed. No specific updates were made at this time. REVIEW OF SYSTEMS: General; head, ears, eyes, nose, throat; cardiovascular; respiratory; GI; ; musculoskeletal; neurologic; and skin are negative except as mentioned in the HPI. PHYSICAL EXAMINATION: VITAL SIGNS: Afebrile, pulse 60, blood pressure 156/67, respirations 20, and saturation 96% on 3 L nasal cannula. GENERAL: The patient is awake and alert, in no apparent distress. LUNGS: Decent air entry. Dependent crackles are noted. HEART: Normal rate. Regular. ABDOMEN: Soft, nontender, and nondistended. Bowel sounds are positive. MUSCULOSKELETAL: No cyanosis or clubbing. There is diffuse 2 to 3+ pitting throughout. NEUROLOGIC: Grossly nonfocal. LABORATORY DATA: WBC 6.6, hemoglobin 12.1, platelets 149,000. INR 1.3. Creatinine 1.08 and downtrending. Basic metabolic profile is otherwise unremarkable. Sodium 140. Troponin is 0.024. Liver function studies are unremarkable. TSH falls within the normal limits. IMAGIN. Chest x-ray demonstrates pulmonary vascular congestion. There are defibrillator pads overlying the left hemithorax. 2. EKG demonstrates complete heart block. ASSESSMENT: 1. Acute hypoxic respiratory failure. 2. Complete heart block. 3. Presyncope. 4. Acute kidney injury, resolved. DISCUSSION AND PLAN: The patient is touch volume overloaded. She also has slightly increased work of breathing. As such, I am going to provide her with a dose of Lasix. IV fluids will be interrupted. At this point, she is status post pacemaker placement. She is stable for transition out of the ICU to the telemetry unit. When she arrives there, she will have no further requirements for inpatient Pulmonary/Critical Care opinion, and I will sign off. We will change her albuterol over to p.r.n., and continue her Dulera on a daily basis. 70 minutes have been devoted to this patient in various activities. I personally reviewed all imaging studies and laboratory data noted within this document. For fifty percent of this time, I was interacting with the patient at the bedside or coordinating care with the care team. For the remainder of the time I was immediately available to the patient in the hospital unit. Job ID: [id number] [facility]
[2019-01-28] MEDS: Morphine 2 MG/ML SYRINGE SLOW IVP PRN (00:44)
[2019-01-28 05:26] LABS: #Eosinphils 0.2 thou/uL (0.0-0.7); #Lymphocytes 0.7 thou/uL (1.20-3.40); #Neutrophils 6.7 thou/uL (1.40-6.50); %Basophils 0.3 % (0.0-1.0); %Eosinophils 2.3 % (0.0-10.0); %Lymphocytes 8.2 % (21.0-51.0); %Monocytes 11.4 % (0.0-10.0); %Neutrophils 77.8 % (42.0-75.0); Hemoglobin 12.4 g/dL (12.0-16.0); Mean Corpuscular HGB CONC 32.7 g/dL (32.0-36.0); Mean Corpuscular Hemoglobin 31.9 pg (27.0-31.0); Mean Corpuscular Volume 97.5 fL (78.0-98.0); Mean Platelet Volume 7.8 fL (7.4-10.4); Platelet Count 141 thou/uL (130-400); RBC Distribution Width 14.3 % (11.5-14.5); Red Blood Cell (RBC) Count 3.89 mill/uL (4.20-5.40); White Blood Cell (WBC) Count 8.6 thou/uL (4.8-10.8)
[2019-01-28 05:32] LABS: Anion Gap 14 mmol/L (10-20); BUN (Urea Nitrogen) 26 mg/dL (9.8-20.1); Calc. Creatinine Clearance 65 mL/min (70-130); Calcium 8.8 mg/dL (7.8-10.44); Carbon Dioxide 25 mmol/L (23-31); Chloride 103 mmol/L (98-107); Estimated GFR-MDRD 43; Glucose 134 mg/dL (83-110); Potassium 5.2 mmol/L (3.5-5.1); Sodium 137 mmol/L (136-145)
[2019-01-28] MEDS: Mometasone/Formoterol 120 PUFF INHALER INH SCH ×2 (06:36→18:31)
[2019-01-28] MEDS: PROVENTIL INHALER 6.7 G (200 INHALATIONS) INH SCH ×2 (06:36→13:30)
--- NOTE | 2019-01-28 08:23 | PDOC.CPN ---
- Subjective Date: 01/28/19 Time: 08:21 Interval history: No complaints.States she was up in chair yesterday pm Went down yesterday fro lead revision after pacer on thu - Objective Allergies/Adverse Reactions: Allergies Allergy/AdvReac Type Severity Reaction Status Date / Time Penicillins Allergy Intermediate Verified 08/06/18 15:12 lactose Allergy Verified 08/06/18 15:12 Visit Medications: Current Medications Acetaminophen (Tylenol) 650 mg PO Q4H PRN PRN Reason: Headache/Fever/Mild Pain (1-3) Last Admin: 01/26/19 23:59 Dose: 650 mg Acetaminophen/Codeine Phosphate (Tylenol #3) 1 tab PO Q4H PRN PRN Reason: Mild Pain (1-3) Last Admin: 01/27/19 20:29 Dose: 1 tab Albuterol Sulfate (Proventil Hfa) 2 puff INH [id number] ISIDORO Last Admin: 01/28/19 06:36 Dose: 2 puff Albuterol Sulfate (Albuterol Sulfate) 1.25 mg NEB [id number] PRN PRN Reason: Wheezing Dextrose/Water (Dextrose 50%) 25 gm SLOW IVP PRN PRN PRN Reason: Hypoglycemia Furosemide (Lasix) 40 mg SLOW IVP DAILY ISIDORO Stop: 01/28/19 11:00 Last Admin: 01/28/19 07:53 Dose: 40 mg Glucagon (Glucagon) 1 mg IM PRN PRN PRN Reason: Hypoglycemia Hydralazine HCl (Apresoline) 10 mg SLOW IVP Q4H PRN PRN Reason: SBP > 180 and HR < 70 Dextrose/Water (D5w) 1,000 mls @ 0 mls/hr IV .Q0M PRN PRN Reason: Hypoglycemia Insulin Human Lispro (Humalog) 0 units SC .MODERATE SLIDING SC PRN PRN Reason: Moderate Correctional Scale Insulin Human Lispro (Humalog) 0 units SC .BEDTIME SLIDING SC PRN PRN Reason: Bedtime Correctional Scale Mometasone Furoate/Formoterol Fumar (Dulera 200 Mcg/5 Mcg Inhaler) 1 puff INH BID-RT ISIDORO Last Admin: 01/28/19 06:36 Dose: 1 puff Morphine Sulfate (Morphine) 1 mg SLOW IVP Q2H PRN PRN Reason: Moderate Pain (4-7) Morphine Sulfate (Morphine) 2 mg SLOW IVP Q2H PRN PRN Reason: Severe Pain (8-10) Last Admin: 01/28/19 00:44 Dose: 2 mg Ondansetron HCl (Zofran Odt) 4 mg PO Q6H PRN PRN Reason: Nausea/Vomiting Ondansetron HCl (Zofran) 4 mg IVP Q6H PRN PRN Reason: Nausea/Vomiting Last Admin: 01/27/19 16:09 Dose: 4 mg Vital Signs & Weight: Vital Signs Temp Pulse Resp Pulse Ox 01/28/19 07:07 96 01/28/19 04:00 98.5 F 01/28/19 00:00 98.7 F 01/27/19 23:19 62 16 97 Admit Weight 229 lb 0.964 oz Weight 222 lb 3.615 oz - Physical Exam General: alert & oriented x3 Neck: supple neck Cardiac: regular rate and rhythm, no murmur Lungs: clear to auscultation Neuro: grossly intact Abdomen: soft Skin: clear Musculoskeletal: normal range of motion - Labs Result Diagrams: 01/28/19 05:03 01/28/19 05:03 Troponin/CKMB Troponin I 0.024 ng/mL (< 0.028) 01/26/19 17:41 - Problem (1) Chronic kidney disease, stage 3 Code(s): N18.3 - CHRONIC KIDNEY DISEASE, STAGE 3 (MODERATE) Assessment and Plan: stable (2) Complete heart block Code(s): I44.2 - ATRIOVENTRICULAR BLOCK, COMPLETE Assessment and Plan: s/p pacer small hematoma noted Followed by Mai (3) Moderate mitral stenosis Code(s): I05.0 - RHEUMATIC MITRAL STENOSIS Assessment and Plan: stable (4) Near syncope Assessment and Plan: resolved (5) Atrial fibrillation with normal ventricular rate Code(s): I48.91 - UNSPECIFIED ATRIAL FIBRILLATION (6) CAD (coronary artery disease) Code(s): I25.10 - ATHSCL HEART DISEASE OF [place] CORONARY ARTERY W/O ANG PCTRS Qualifiers: Coronary Disease-Associated Artery/Lesion type: bypass graft Assessment and Plan: No symptoms of angina (7) PAD (peripheral artery disease) Code(s): I73.9 - PERIPHERAL VASCULAR DISEASE, UNSPECIFIED - Assessment/Plan Assessment/Plan: Severe PAD noted Contiue wound care
[2019-01-28] MEDS ORDERED: Furosemide 40 MG/4 ML VIAL SLOW IVP SCH (09:00)
[2019-01-28] MEDS ORDERED: CEFAZOLIN 2 GM in Premix Bag 1 BAG IVPB SCH (10:30)
--- NOTE | 2019-01-28 10:40 | RAD ---
EXAM: Portable chest PROVIDED CLINICAL HISTORY: Respiratory insufficiency COMPARISON: 01/26/2019 FINDINGS: Changes of congestive failure are redemonstrated. Interval placement of left subclavian cardiac pacin g device with lead tips overlying the expected locations of RA and RV. Additional significant interval change with respect to the prior examination is not apparent. IMPRESSION: As above.
[2019-01-28] MEDS ORDERED: ceFAZolin 1 GM/D5W 1 GM in Premix Bag 1 BAG IVPB SCH (10:45)
--- NOTE | 2019-01-28 12:18 | PRG ---
DATE OF SERVICE: 01/28/2019 SUBJECTIVE: Ms. Hadley seems to be doing well this morning one day after her RV lead revision. She continues to be with adequate heart rates. No further AV block is seen. She is feeling fair. Some tenderness at the pacemaker site is noted. OBJECTIVE: VITAL SIGNS: Currently, blood pressure 132/52, heart rate is 81, respirations 20, the patient is 98.5 degrees Fahrenheit. GENERAL: Alert, oriented obese woman, in no apparent distress. NECK: Supple. Jugular veins not distended. CHEST: Coarse without crackles. HEART: Sounds are regular rate and rhythm. Left precordial pacemaker insertion site has minor swelling. No obvious hematoma is discernible. Incision site is well approximated. ABDOMEN: Benign. Bowel sounds positive. EXTREMITIES: Lower extremities without edema, clubbing, or cyanosis. DATABASE: Telemetry strips reviewed in detail revealing 2:1 AV block during time of pacemaker test while holding the pacing, but episodic one-to-one conduction is also seen. The patient's normal setting is predominantly ventricular paced at this time. LABORATORY DATA: White cell count 8.6, hemoglobin 12.4, platelet count is 141. Sodium 137, potassium 5.2, BUN is 26, creatinine 1.24. ASSESSMENT AND PLAN: Ms. Hadley is a very pleasant 73-year-old woman with prior history of paroxysmal atrial fibrillation well suppressed with Multaq, who also has preserved left ventricular ejection fraction, significant valvular heart disease, and also history of coronary artery disease with prior bypass graft, diabetes, and obesity. She presented with a complete AV block with symptomatic bradycardia and underwent a dual-chamber pacemaker implantation, but also required RV lead revision on subsequent day, now she seems to be doing well with reposition RV lead, adequate capture, and pacemaker function is noted. Plan is to recheck chest x-ray, although not suspecting pneumothorax and just for lead position, but it seems to be adequate capture. Also, we will reprogram the pacemaker to provide the minimally necessary pacing. We will make arrangements for routine wound check in about 2 weeks. From EP standpoint, she is currently stable. We will resume oral anticoagulation tomorrow evening. I would hold it until then as at this time, she is in sinus rhythm and she also will resume IV then p.o. antibiotics for a total duration of a week. I will continue Multaq for now and we will continue to follow her in the office as well Thank you again for asking me to participate in the care of this patient. I would sign off. Call if I can be of further help. Job ID: [id number]
--- NOTE | 2019-01-28 12:28 | PDOC.HOSPP ---
- Subjective Encounter Date: 01/28/19 Encounter Time: 11:26 Subjective: 73 y/o female with CAD s/p CABG, PVD, A fib, DM and others admitted with severe bradycardia associated with generalized weakness, exertional dyspnea and dizziness. Found to have complete heart block and had Pacemaker placement on followed by RV lead repositioning on 01/27/2019. Feeling better today. - Objective Vital Signs & Weight: Vital Signs (12 hours) Temp Pulse Ox 01/28/19 07:07 96 01/28/19 04:00 98.5 F Weight Admit Weight 229 lb 0.964 oz Weight 222 lb 3.615 oz Most Recent Monitor Data Heart Rate from ECG 68 NIBP 120/44 NIBP BP-Mean 69 Respiration from ECG 20 SpO2 99 I&O: 01/27/19 01/28/19 01/29/19 06:59 06:59 06:59 Intake Total 1183 1200 720 Output Total 2950 2850 101 Balance -1767 -1650 619 Result Diagrams: 01/28/19 05:03 01/28/19 05:03 Additional Labs: Accuchecks 01/28/19 01/28/19 01/28/19 12:19 05:58 00:39 POC Glucose 150 H 124 H 155 H 01/27/19 17:29 POC Glucose 106 Hospitalist ROS - Medication Medications: Active Medications Generic Name Dose Route Start Last Admin Trade Name Freq PRN Reason Stop Dose Admin Acetaminophen 650 mg 01/26/19 14:43 01/26/19 23:59 Tylenol PO 650 mg Q4H PRN Administration Headache/Fever/Mild Pain (1-3) Acetaminophen/Codeine Phosphate 1 tab 01/27/19 10:41 01/27/19 20:29 Tylenol #3 PO 1 tab Q4H PRN Administration Mild Pain (1-3) Albuterol Sulfate 2 puff 01/27/19 07:00 01/28/19 06:36 Proventil Hfa INH 2 puff [id number] ISIDORO Administration Mometasone Furoate/Formoterol Fumar 1 puff 01/27/19 06:30 01/28/19 06:36 Dulera 200 Mcg/5 Mcg Inhaler INH 1 puff BID-RT ISIDORO Administration Morphine Sulfate 2 mg 01/27/19 10:43 01/28/19 00:44 Morphine SLOW IVP 2 mg Q2H PRN Administration Severe Pain (8-10) Ondansetron HCl 4 mg 01/26/19 14:43 01/27/19 16:09 Zofran IVP 4 mg Q6H PRN Administration Nausea/Vomiting - Exam General Appearance: awake alert Eye: anicteric sclera ENT: normocephalic atraumatic Neck: supple Heart: RRR, murmur present Respiratory: no wheezes, no ronchi Respiratory - other findings: fair air entry with some tranmitted sound. No obvious crackles Gastrointestinal: soft, non-tender, non-distended, normal bowel sounds Gastrointestinal - other findings: obese Extremities: no cyanosis, no edema Neurological: cranial nerve grossly intact, no focal deficits Musculoskeletal: generalized weakness Psychiatric: normal affect, A&O x 3 Hosp A/P (1) Complete heart block Code(s): I44.2 - ATRIOVENTRICULAR BLOCK, COMPLETE Status: Acute (2) ALISHA (acute kidney injury) Code(s): N17.9 - ACUTE KIDNEY FAILURE, UNSPECIFIED Status: Acute (3) Chronic kidney disease, stage 3 Code(s): N18.3 - CHRONIC KIDNEY DISEASE, STAGE 3 (MODERATE) Status: Chronic (4) CAD (coronary artery disease) Code(s): I25.10 - ATHSCL HEART DISEASE OF [place] CORONARY ARTERY W/O ANG PCTRS Status: Chronic Qualifiers: Coronary Disease-Associated Artery/Lesion type: bypass graft (5) DM type 2 (diabetes mellitus, type 2) Status: Chronic (6) HTN (hypertension) Code(s): I10 - ESSENTIAL (PRIMARY) HYPERTENSION Status: Chronic Qualifiers: (7) Paroxysmal a-fib Code(s): I48.0 - PAROXYSMAL ATRIAL FIBRILLATION Status: Chronic (8) Physical deconditioning Code(s): R53.81 - OTHER MALAISE Status: Chronic (9) PAD (peripheral artery disease) Code(s): I73.9 - PERIPHERAL VASCULAR DISEASE, UNSPECIFIED Status: Acute (10) Moderate mitral stenosis Code(s): I05.0 - RHEUMATIC MITRAL STENOSIS Status: Acute - Plan Continue monitoring. Transfer out of ICU Continue current medication PT/OT eval and treat.
[2019-01-28] MEDS: HumaLOG 300 UNITS/3 ML VIAL SC PRN ×2 (13:17→22:17)
[2019-01-28] MEDS: Acetaminophen/Codeine 30-300mg Tablet PO PRN ×2 (14:03→21:50)
[2019-01-28 14:26] VITALS: BMI 34.8
--- NOTE | 2019-01-28 14:53 | PRG ---
DATE OF SERVICE: 01/28/2019 SERVICE: Pulmonary Medicine. INTERVAL HISTORY: The patient continues to do a little bit better from breathing standpoint. Overnight, she did not have any respiratory events. No fevers or chills. There is no cough or congestion. Otherwise, she feels like she is moving in the right direction. PHYSICAL EXAMINATION: VITAL SIGNS: Afebrile, pulse 66, blood pressure 119/58, respirations 17, and saturation 91% currently on 2 L nasal cannula. GENERAL: The patient is awake and alert, in no apparent distress. LUNGS: Good air entry. Dependent crackles are noted. No prolonged expiratory phase or wheezing is appreciated. HEART: Normal rate and regular. ABDOMEN: Soft, nontender, and nondistended. Bowel sounds are positive. MUSCULOSKELETAL: No cyanosis or clubbing. No pitting in bilateral lower extremities. NEUROLOGIC: Grossly nonfocal. LABORATORY DATA: Creatinine 1.24 and gently up-trending. Potassium 5.2 and also uptrending. Basic metabolic profile; magnesium is unremarkable. INR 1.3. CBC is unremarkable. IMAGING DATA: Chest x-ray demonstrates new pacemaker. There is no evidence of a pneumothorax present. New pacemaker is present. There is interstitial fullness , spread throughout bilateral lung grijalva. Otherwise, there has not been any significant interval change. Soft tissue attenuation versus layering effusion is present. ASSESSMENT: 1. Acute hypoxic respiratory failure. 2. Complete heart block, status post pacemaker placement. 3. Asthma without acute exacerbation. 4. Acute kidney injury. DISCUSSION AND PLAN: At this point, the patient is stable for transition out of the ICU to the telemetry unit. She has no further requirements for Pulmonary or Critical Care opinion, so when she leaves the ICU, we will sign off. Please call with additional questions or concerns through time. Job ID: [id number] [facility]
[2019-01-29] MEDS: Acetaminophen/Codeine 30-300mg Tablet PO PRN ×2 (02:34→09:59)
[2019-01-29 05:29] LABS: Albumin 3.4 g/dL (3.4-4.8); Anion Gap 10 mmol/L (10-20); BUN (Urea Nitrogen) 30 mg/dL (9.8-20.1); BUN/Creatinine Ratio 26.55; Calc. Creatinine Clearance 72 mL/min (70-130); Calcium 8.9 mg/dL (7.8-10.44); Carbon Dioxide 29 mmol/L (23-31); Chloride 102 mmol/L (98-107); Estimated GFR-MDRD 47; Glucose 140 mg/dL (83-110); Phosphorus 4.8 mg/dL (2.3-4.7); Potassium 4.6 mmol/L (3.5-5.1); Sodium 136 mmol/L (136-145)
[2019-01-29] MEDS: Mometasone/Formoterol 120 PUFF INHALER INH SCH (08:57)
--- NOTE | 2019-01-29 11:43 | PDOC.CPN ---
- Subjective Date: 01/29/19 Time: 12:00 Interval history: The pt seen and examined. No overnight events. No cardiac complaints. - Objective Allergies/Adverse Reactions: Allergies Allergy/AdvReac Type Severity Reaction Status Date / Time Penicillins Allergy Intermediate Verified 08/06/18 15:12 lactose Allergy Verified 08/06/18 15:12 Visit Medications: Current Medications Acetaminophen (Tylenol) 650 mg PO Q4H PRN PRN Reason: Headache/Fever/Mild Pain (1-3) Last Admin: 01/26/19 23:59 Dose: 650 mg Acetaminophen/Codeine Phosphate (Tylenol #3) 1 tab PO Q4H PRN PRN Reason: Mild Pain (1-3) Last Admin: 01/27/19 20:29 Dose: 1 tab Acetaminophen/Codeine Phosphate (Tylenol #3) 2 tab PO Q4H PRN PRN Reason: Moderate Pain (4-6) Last Admin: 01/29/19 09:59 Dose: 2 tab Albuterol Sulfate (Albuterol Sulfate) 1.25 mg NEB [id number] PRN PRN Reason: Wheezing Albuterol/Ipratropium (Duoneb) 3 ml NEB TID-RT ISIDORO Last Admin: 01/29/19 08:49 Dose: 3 ml Apixaban (Eliquis) 5 mg PO BID ISIDORO Dextrose/Water (Dextrose 50%) 25 gm SLOW IVP PRN PRN PRN Reason: Hypoglycemia Glucagon (Glucagon) 1 mg IM PRN PRN PRN Reason: Hypoglycemia Hydralazine HCl (Apresoline) 10 mg SLOW IVP Q4H PRN PRN Reason: SBP > 180 and HR < 70 Dextrose/Water (D5w) 1,000 mls @ 0 mls/hr IV .Q0M PRN PRN Reason: Hypoglycemia Insulin Human Lispro (Humalog) 0 units SC .MODERATE SLIDING SC PRN PRN Reason: Moderate Correctional Scale Insulin Human Lispro (Humalog) 0 units SC .BEDTIME SLIDING SC PRN PRN Reason: Bedtime Correctional Scale Last Admin: 01/28/19 22:17 Dose: 2 units Mometasone Furoate/Formoterol Fumar (Dulera 200 Mcg/5 Mcg Inhaler) 1 puff INH BID-RT ISIDORO Last Admin: 01/29/19 08:57 Dose: 1 puff Morphine Sulfate (Morphine) 1 mg SLOW IVP Q2H PRN PRN Reason: Moderate Pain (4-7) Morphine Sulfate (Morphine) 2 mg SLOW IVP Q2H PRN PRN Reason: Severe Pain (8-10) Last Admin: 01/28/19 00:44 Dose: 2 mg Ondansetron HCl (Zofran Odt) 4 mg PO Q6H PRN PRN Reason: Nausea/Vomiting Ondansetron HCl (Zofran) 4 mg IVP Q6H PRN PRN Reason: Nausea/Vomiting Last Admin: 01/27/19 16:09 Dose: 4 mg Vital Signs & Weight: Vital Signs Temp Pulse Resp BP Pulse Ox 01/29/19 08:57 60 12 01/29/19 08:51 94 L 01/29/19 08:49 60 12 01/29/19 07:55 97.4 F L 59 L 18 134/60 96 01/29/19 04:00 97.7 F 63 16 139/62 93 L Admit Weight 227 lb Weight 222 lb - Physical Exam General: alert & oriented x3 Cardiac: irregularly regular Lungs: clear to auscultation, decreased breath sounds Skin: clear Musculoskeletal: decreased range of motion - Labs Result Diagrams: 01/28/19 05:03 01/29/19 04:54 Troponin/CKMB Troponin I 0.024 ng/mL (< 0.028) 01/26/19 17:41 - Telemetry Sinus rhythms and dysrhythmias: other (AV paced) - Assessment/Plan Assessment/Plan: 1. Complete Heart block with s/p PM placement on 01/28/[address] Oneill - The pM site is [employer] without erythema, swelling or bleeding 2. Parox Afib - well controlled HR; On Eliquis; will resume Metoprolol 12.5mg qd and Multaq 400mg BID from today 3. ALISHA on CKD stage 3 - improving 4. CAD with hx of CABG x4 - stable; on BBlocker, ASA 81mg qd, and simvastatin 5. Severe PAD - cont. wound care 6. HTN - stable 7. DM type 2 - managed by PCP SHAGGY kumar * From Cardiac standpoint, the pt is stable to d/c home if her VS is stable with Metoprolol 12.5mg qd today. * The pt will f/u with Dr Parisi's office with in 2-4 wks. * the pt will f/u with Dr Oneill's office in 10 days for PM site check. pt. seen and eval. by me. I agree with the A/P by the MOTOR DRIVER. Pt. is ready for d/c. Chest clear. pacemaker site okay. kerry
[2019-01-29 12:09] VITALS: TEMP 97.9
[2019-01-29] MEDS ORDERED: Dronedarone HCl 400 MG TAB PO SCH (12:45)
--- NOTE | 2019-01-29 13:33 | PDOC.EVN ---
Event Note - Event Note Event Note: Discharge summary dictated. #[id number]
--- NOTE | 2019-01-29 13:56 | DIS ---
DATE OF ADMISSION: 01/26/2019 DATE OF DISCHARGE: 01/29/2019 PRIMARY CARE PHYSICIAN: Dr. Kristi Weber. DISCHARGE DIAGNOSES: 1. Complete heart block. 2. Status post pacemaker placement. 3. Acute kidney injury. 4. Chronic kidney disease, stage 3. 5. Near syncope. 6. Coronary artery disease. 7. Type 2 diabetes mellitus. 8. Paroxysmal atrial fibrillation. 9. Moderate mitral stenosis. 10. Hypertension. 11. Physical deconditioning. 12. Peripheral artery disease. 13. Obesity. CONSULTS: 1. Cardiology. 2. Pulmonary and Critical Care. 3. Diversity Specialist. PROCEDURE PERFORMED: Pacemaker placement. HOSPITAL COURSE: A 73-year-old female with past medical history significant for coronary artery disease status post CABG, peripheral vascular disease, atrial fibrillation as well as diabetes amongst others, who was admitted with severe bradycardia associated with generalized weakness, exertional dyspnea and near syncope. The patient was found to have complete heart block. Cardiology consult was obtained and electrophysiology consult was subsequently requested. The patient was felt to have complete heart block associated with near syncope and subsequently have pacemaker placement on January 26. However, there was poor capture requiring repositioning of the right ventricular lead on January 27, 2019 with good capture. The patient remained stable and was subsequently moved out of the ICU. The patient had elevated creatinine consistent with ALISHA on presentation, which improved to baseline with IV fluid therapy. The patient was found to have physical deconditioning and was seen by Physical and Occupational therapy with improvement. Home PT was recommended. The patient remained stable and was subsequently discharged home. The patient is to restart both Multaq and Eliquis on discharge. PHYSICAL EXAMINATION: VITAL SIGNS: Temperature 97.9, pulse 62, respiratory rate 18, SpO2 of 97 on room air, blood pressure is 143/59. GENERAL: Elderly female, in no distress. Afebrile. Anicteric. Acyanotic. HEENT: Normocephalic and atraumatic. Oral mucosa is moist. CARDIOVASCULAR: Regular rhythm and rate with normal. heart sounds one and two. Systolic murmur noted. RESPIRATORY: Fair air entry bilaterally with few transmitted breath sounds. No obvious rhonchi were appreciated. GI: Obese, soft, nontender, nondistended with normal bowel sounds. EXTREMITIES: Grossly normal looking, atraumatic with no edema or erythema. COMMERCIAL CARPET INSTALLER: Conscious, alert, oriented x3 with appropriate mental status. Cranial nerves 2 through 12 are grossly intact. The patient moves all extremities. The patient is ambulant with a walker. DISCHARGE CONDITION: Improved. DISCHARGE DISPOSITION: Home with Home Health. DISCHARGE MEDICATIONS: Please see discharge med rec. Note that all home medications were restarted. Discharge took more than 36 minutes. Job ID: [id number]
[2019-01-29] MEDS ORDERED: Clindamycin 150 MG CAP PO SCH (14:45)
[2019-01-29 16:22] VITALS: BP 154/65
[2019-01-29] MEDS ORDERED: Apixaban 5 MG TAB PO SCH (21:00)
[2019-01-29] MEDS ORDERED: Simvastatin 20 MG TAB PO SCH (21:00)
[2019-01-30] MEDS ORDERED: Dronedarone HCl 400 MG TAB PO SCH (08:00)
[2019-01-30] MEDS ORDERED: Aspirin 81 mg Enteric Coated Tablet PO SCH (09:00)
== END 2019-01-29 16:33 | disposition home health service (06) | DRG 242 ==
LOC: ERS 10:20 → CCU 13:31 → 2NO 01-28 16:06
PROVIDERS: ADMIT Internal Medicine; ATTEND Internal Medicine
PROC: 0JH606Z Insertion of Pacemaker, Dual Chamber into Chest Subcutaneous Tissue and Fascia, Open Approach (ICD-10-PCS; principal; 2019-01-26)
PROC: 02HK3JZ Insertion of Pacemaker Lead into Right Ventricle, Percutaneous Approach (ICD-10-PCS; 2019-01-26)
PROC: 02H63JZ Insertion of Pacemaker Lead into Right Atrium, Percutaneous Approach (ICD-10-PCS; 2019-01-26)
PROC: 02WA3MZ Revision of Cardiac Lead in Heart, Percutaneous Approach (ICD-10-PCS; 2019-01-27)
DX: I44.2 Atrioventricular block, complete (principal); J96.01 Acute respiratory failure with hypoxia; I50.32 Chronic diastolic (congestive) heart failure; I13.0 Hypertensive heart and chronic kidney disease with heart failure and stage 1 through stage 4 chronic kidney disease, or unspecified chronic kidney disease; N17.9 Acute kidney failure, unspecified; T82.120A Displacement of cardiac electrode, initial encounter; E78.5 Hyperlipidemia, unspecified; E78.00 Pure hypercholesterolemia, unspecified; M19.90 Unspecified osteoarthritis, unspecified site; J45.909 Unspecified asthma, uncomplicated; E11.40 Type 2 diabetes mellitus with diabetic neuropathy, unspecified; F41.9 Anxiety disorder, unspecified; E11.51 Type 2 diabetes mellitus with diabetic peripheral angiopathy without gangrene; N18.3 Chronic kidney disease, stage 3 (moderate); E11.22 Type 2 diabetes mellitus with diabetic chronic kidney disease; I25.10 Atherosclerotic heart disease of native coronary artery without angina pectoris; I48.0 Paroxysmal atrial fibrillation; F32.9 Major depressive disorder, single episode, unspecified; Z88.0 Allergy status to penicillin; Z79.4 Long term (current) use of insulin; Z90.710 Acquired absence of both cervix and uterus; Z79.01 Long term (current) use of anticoagulants; Z91.011 Allergy to milk products; Z79.899 Other long term (current) drug therapy; Z79.82 Long term (current) use of aspirin; Z87.891 Personal history of nicotine dependence; Z86.73 Personal history of transient ischemic attack (TIA), and cerebral infarction without residual deficits; Z95.1 Presence of aortocoronary bypass graft; Z79.51 Long term (current) use of inhaled steroids; E11.621 Type 2 diabetes mellitus with foot ulcer; L97.519 Non-pressure chronic ulcer of other part of right foot with unspecified severity; I08.0 Rheumatic disorders of both mitral and aortic valves; E66.9 Obesity, unspecified; Z68.34 Body mass index [BMI] 34.0-34.9, adult; Y84.8 Other medical procedures as the cause of abnormal reaction of the patient, or of later complication, without mention of misadventure at the time of the procedure
CPT/HCPCS: 33208; 33215; 36005; 36415; 36416; 71045; 75635; 75820; 80048; 80053; 80069; 82565; 83735; 84443; 84484; 85025; 85610; 85730; 86850; 86870; 86880; 86900; 86901; 86905; 86922; 86970; 93005; 94640; 94760; 96361; 96374; 99152; 99153; C1785; C1898; J0461; J0690; J1940; J2001; J2250; J2270; J2405; J3010; J3490; J7620; Q9967

== ENCOUNTER 2019-03-02 13:00 | Outpatient (CLI) | payer MEDICARE, MEDICAID ==
[2019-03-02] MEDS ORDERED: Sodium Chloride 0.9% 15 ML NEB ONE (18:00)
--- NOTE | 2019-03-02 18:32 | HP ---
HISTORY OF PRESENT ILLNESS: Ms. Chelsea Hadley is a very pleasant 73-year-old accompanied by her daughter, who presents to the [facility]ound Center for evaluation of an ulceration of the plantar surface of the right hallux. The patient's daughter states that Ms. Hadley developed a "blood blister" in August of this year. She states that after the blister "popped" an ulceration developed. The patient began treating the ulceration with Neosporin followed by a Band-Aid. The patient subsequently received dressing changes of Medihoney followed by a secondary dressing with the assistance of Home Health. The patient's daughter states that when the ulceration failed to improve in its appearance, the patient was seen by her nurse practitioner, and at this time, referred to the Wound Center for further evaluation and treatment. The patient states that she has been soaking her right foot in an Epsom salt solution and then allowing the ulceration to "air out". PAST MEDICAL HISTORY: 1. Diabetes mellitus. 2. Osteoarthritis. 3. Asthma. 4. TIA. 5. Peripheral vascular disease. 6. Hypertension. 7. Coronary artery disease. 8. Atrial fibrillation. 9. Chronic kidney disease stage 3. 10. Diastolic heart failure. 11. Valvular heart disease. 12. Anemia. 13. Cataracts. 14. History of GI bleeding. PAST SURGICAL HISTORY: 1. Hysterectomy. 2. Tonsillectomy. 3. Coronary artery bypass grafting x4. 4. Right carotid endarterectomy with bovine pericardial patch, 01/27/2011. 5. Left carotid endarterectomy with bovine patch angioplasty, 03/17/2011. 6. Bilateral common femoral endarterectomies with bovine pericardial patch, 11/17/2012. 7. Pacemaker placement for sinus bradycardia. MEDICATIONS: 1. NovoLog 70/30. 2. Simvastatin. 3. Fish oil. 4. Ferrous sulfate. 5. Fluoxetine. 6. Pregabalin. 7. [place]-3-6-9 fatty acids. 8. AREDS. 9. Flonase. 10. Eliquis. 11. Multaq. 12. Aspirin 81 mg. 13. Montelukast. 14. Symbicort. 15. Albuterol. ALLERGIES: PENICILLIN. SOCIAL HISTORY: Social history is significant for tobacco use of up to 5 cigarettes per day for approximately 40 years. The patient states that she stopped smoking in 2007. Social history is negative for EtOH use. FAMILY HISTORY: Family history is significant for diabetes mellitus. The patient states that her father was diagnosed with diabetes mellitus. Family history is also significant for coronary artery disease. The patient states that her father was also diagnosed with coronary artery disease. The patient also reports that she has multiple relatives on the paternal side of her family who were diagnosed with diabetes mellitus. PHYSICAL EXAMINATION: VITAL SIGNS: Temperature 97.4, pulse 82, respirations 20, and blood pressure 149/70. Accu-Chek 145. GENERAL: A 73-year-old female, lying on stretcher in examination room, in no acute distress. HEENT: Normocephalic, atraumatic. NECK: No nuchal rigidity. CHEST: Clear to auscultation. CV: Regular rate and rhythm. ABDOMEN: Soft. EXTREMITIES: An ulceration of the plantar surface of the right great toe is present, which measures approximately 0.5 x 0.4 cm. No purulent drainage is associated with the wound. No erythema of the skin surrounding the wound is present. No maceration of the skin of the periwound is noted. A dorsalis pedis pulse or posterior tibial pulse is not palpable on the right. No significant of the right hallux or right foot is present on exam today. NEUROLOGIC: Grossly nonfocal. ASSESSMENT AND PLAN: 1. Ulceration of plantar surface of right hallux as described above. Dressing changes of Santyl will be initiated today. These dressing changes are to be performed on a daily basis after cleansing and irrigation with the assistance of Home Health. Arrangements will be made for the home delivery of Santyl. No antibiotics will be prescribed today based upon the appearance of the wound. The patient has also been reminded to keep all followup appointments with Dr. Parisi in regard to percutaneous revascularization of the right lower extremity. We will see Ms. Hadley again in 2 weeks. The patient understands and is in agreement with the preceding treatment plan. The importance of offloading in achieving the healing of the ulceration has also been discussed with the patient and her daughter. Arrangements will also be made for fitting with diabetic shoes with inserts by the wound treatment rn. The patient and her daughter understand and are in agreement with the preceding treatment plan. 2. Diabetes mellitus. The patient's Accu-Chek in clinic today is 145. The patient has been told that for optimal wound healing, her blood glucoses should remain below 150. 3. Osteoarthritis. 4. Asthma. 5. Transient ischemic attack. 6. Peripheral vascular disease. 7. Hypertension. 8. Coronary artery disease. 9. Atrial fibrillation. 10. Chronic kidney disease, stage 3. 11. Diastolic heart failure. 12. Valvular heart disease. 13. Anemia. 14. Cataracts. 15. History of gastrointestinal bleeding. Job ID: [id number]
== END 2019-03-02 13:01 | disposition home or self-care (01) ==
LOC: WCC 13:00
PROVIDERS: ATTEND Family Medicine
DX: E11.621 Type 2 diabetes mellitus with foot ulcer (principal); L97.419 Non-pressure chronic ulcer of right heel and midfoot with unspecified severity; I13.0 Hypertensive heart and chronic kidney disease with heart failure and stage 1 through stage 4 chronic kidney disease, or unspecified chronic kidney disease; N18.3 Chronic kidney disease, stage 3 (moderate); I50.30 Unspecified diastolic (congestive) heart failure; M19.90 Unspecified osteoarthritis, unspecified site; G45.9 Transient cerebral ischemic attack, unspecified; I73.9 Peripheral vascular disease, unspecified; I25.10 Atherosclerotic heart disease of native coronary artery without angina pectoris; I48.91 Unspecified atrial fibrillation; J45.909 Unspecified asthma, uncomplicated; D64.9 Anemia, unspecified; H26.9 Unspecified cataract; Z87.19 Personal history of other diseases of the digestive system
CPT/HCPCS: A4218

== ENCOUNTER 2019-03-16 08:47 | Outpatient (CLI) | payer MEDICARE, MEDICAID ==
[2019-03-16] MEDS ORDERED: Sodium Chloride 0.9% 15 ML NEB ONE (09:00)
[2019-03-16] MEDS ORDERED: Lidocaine 2% PF 100 mg/5 ml Syringe ONE (09:00)
--- NOTE | 2019-03-16 09:47 | PRG ---
DATE OF SERVICE: 03/16/2019 SUBJECTIVE: Ms. Chelsea Hadley is a very pleasant 73-year-old accompanied by her daughter, who presents to the Wound Center for evaluation of an ulceration of the plantar surface of the right hallux. The patient's daughter previously stated that Ms. Hadley developed a "blood blister" in August of this year. She stated that after the blister "popped" and ulceration developed, the patient began treating the ulceration with Neosporin followed by a Band-Aid. The patient subsequently received dressing changes of Medihoney followed by a secondary dressing with the assistance of Home Health. The patient's daughter stated that when the ulceration failed to improve in its appearance, the patient was seen by her nurse practitioner and at this time referred to the Wound Center for further evaluation and treatment. The patient stated that she had been soaking her right foot in an Epsom salt solution and then allowing the ulceration to "air out" prior to being seen in the Wound Center. Since the patient's last visit, Ms. Hadley has been receiving dressing changes of Santyl on a daily basis after cleansing and irrigation with the assistance of Home Health and her daughter. PHYSICAL EXAMINATION: VITAL SIGNS: Temperature 97.7, pulse 57, respirations 17, blood pressure 142/66. Accu-Chek 116. EXTREMITIES: An ulceration of the plantar surface of the right great toe is present, which measures approximately 0.8 x 0.6 cm. No purulent drainage is associated with the wound. No cellulitis of the right hallux is appreciated. No maceration of the skin of the periwound is noted. No significant edema of the right hallux or right foot is present on exam today. ASSESSMENT AND PLAN: 1. Ulceration of plantar surface of right hallux as described above. Santyl followed by Promosarah and Aquacel will be applied to the ulceration of the plantar surface of the right hallux today. These dressing changes are to be performed 3 times per week after cleansing and irrigation with the assistance of Home Health. Arrangements were previously made for the home delivery of Santyl. The patient and her daughter state that Ms. Hadley has a followup appointment with Dr. Parisi in regard to percutaneous revascularization of the right lower extremity in May of next year. I will see Ms. Hadley again in 1 week. At this time, the patient will be seen by the soldering machine tender for fitting with diabetic shoes with inserts. 2. Diabetes mellitus. The patient's Accu-Chek in clinic today is 116. The patient has been reminded that for optimal wound healing her blood glucoses should remain below 150. 3. Osteoarthritis. 4. Asthma. 5. Transient ischemic attack. 6. Peripheral vascular disease. 7. Hypertension. 8. Coronary artery disease. 9. Atrial fibrillation. 10. Chronic kidney disease, stage 3. 11. Diastolic heart failure. 12. Valvular heart disease. 13. Anemia. 14. Cataracts. 15. History of gastrointestinal bleeding. Job ID: [id number]
== END 2019-03-16 08:48 | disposition home or self-care (01) ==
LOC: WCC 08:47
PROVIDERS: ATTEND Family Medicine
DX: E11.621 Type 2 diabetes mellitus with foot ulcer (principal); L97.519 Non-pressure chronic ulcer of other part of right foot with unspecified severity; M19.90 Unspecified osteoarthritis, unspecified site; J45.909 Unspecified asthma, uncomplicated; G45.9 Transient cerebral ischemic attack, unspecified; I73.9 Peripheral vascular disease, unspecified; I25.10 Atherosclerotic heart disease of native coronary artery without angina pectoris; H26.9 Unspecified cataract; I13.0 Hypertensive heart and chronic kidney disease with heart failure and stage 1 through stage 4 chronic kidney disease, or unspecified chronic kidney disease; E11.22 Type 2 diabetes mellitus with diabetic chronic kidney disease; I50.30 Unspecified diastolic (congestive) heart failure; N18.3 Chronic kidney disease, stage 3 (moderate); D63.1 Anemia in chronic kidney disease; Z87.19 Personal history of other diseases of the digestive system
CPT/HCPCS: A4218; J2001

== ENCOUNTER 2019-03-23 13:17 | Outpatient (CLI) | payer MEDICARE, MEDICAID ==
--- NOTE | 2019-03-23 10:29 | PRG ---
DATE OF SERVICE: 03/23/2019 HISTORY: Ms. Chelsea Hadley is a very pleasant 73-year-old accompanied by her daughter, who presents to the Wound Center for evaluation of an ulceration of the plantar surface of the right hallux. The patient's daughter previously stated that Ms. Hadley developed a "blood blister" in August of this year. She stated that after the blister "popped" and an ulceration developed, the patient began treating the ulceration with Neosporin followed by a Band-Aid. The patient subsequently received dressing changes of Medihoney followed by a secondary dressing with the assistance of Home Health. The patient's daughter stated that when the ulceration failed to improve in its appearance, the patient was seen by her nurse practitioner and at this time, referred to the Wound Center for further evaluation and treatment. The patient stated that she had been soaking her right foot in an Epsom salt solution and then allowing the ulceration to "air out" prior to being seen in the Wound Center. Since the patient's last visit, Ms. Hadley has been receiving dressing changes of Santyl followed by Promogran and Aquacel 3 times per week after cleansing and irrigation with the assistance of Home Health. PHYSICAL EXAMINATION: VITAL SIGNS: Temperature 97.5, pulse 61, respirations 16, and blood pressure 140/63. Accu-Chek 99. EXTREMITIES: An ulceration of the plantar surface of the right great toe is present, which measures approximately 0.7 x 0.7 cm. The dimensions of the wound at the time of the patient's last visit were approximately 0.8 x 0.6 cm. No purulent drainage is associated with the wound. No cellulitis of the right hallux is appreciated. No maceration of the skin of the periwound is noted. No significant edema of the right hallux or right foot is present on exam today. ASSESSMENT AND PLAN: 1. Ulceration of plantar surface of right hallux as described above. Santyl followed by Promogran and Aquacel will be continued 3 times per week to the ulceration of the plantar surface of the right hallux after cleansing and irrigation with the assistance of Home Health. Again, the patient and her daughter state that Ms. Hadley has a followup appointment with Dr. Parisi in regard to percutaneous revascularization of the right lower extremity in May of next year. I will see Ms. Hadley again on 04/20/2019, at this time, the patient will be seen again by the aerospace technician for fitting with diabetic shoes with inserts. The patient has also been seen by the aerospace technician today. 2. Diabetes mellitus. The patient's Accu-Chek in clinic today is 99. The patient has been reminded that for optimal wound healing, her blood glucoses should remain below 150. 3. Osteoarthritis. 4. Asthma. 5. Transient ischemic attack. 6. Peripheral vascular disease. 7. Hypertension. 8. Coronary artery disease. 9. Atrial fibrillation. 10. Chronic kidney disease stage 3. 11. Diastolic heart failure. 12. Valvular heart disease. 13. Anemia. 14. Cataracts. 15. History of gastrointestinal bleeding. Job ID: [id number]
[~2019-03-23 13:17] MED LIST: Lidocaine 2% PF 100 mg/5 ml Syringe ONE; Sodium Chloride 0.9% 15 ML NEB ONE
== END 2019-03-23 13:18 | disposition home or self-care (01) ==
LOC: WCC 13:17
PROVIDERS: ATTEND Family Medicine
DX: E11.621 Type 2 diabetes mellitus with foot ulcer (principal); L97.519 Non-pressure chronic ulcer of other part of right foot with unspecified severity; M19.90 Unspecified osteoarthritis, unspecified site; J45.909 Unspecified asthma, uncomplicated; G45.9 Transient cerebral ischemic attack, unspecified; I73.9 Peripheral vascular disease, unspecified; I25.10 Atherosclerotic heart disease of native coronary artery without angina pectoris; I48.91 Unspecified atrial fibrillation; D63.1 Anemia in chronic kidney disease; H26.9 Unspecified cataract; I38 Endocarditis, valve unspecified; Z87.19 Personal history of other diseases of the digestive system; I13.0 Hypertensive heart and chronic kidney disease with heart failure and stage 1 through stage 4 chronic kidney disease, or unspecified chronic kidney disease; E11.22 Type 2 diabetes mellitus with diabetic chronic kidney disease; N18.3 Chronic kidney disease, stage 3 (moderate); I50.30 Unspecified diastolic (congestive) heart failure
CPT/HCPCS: 97602; A4218; J2001

== ENCOUNTER 2019-04-09 17:49 | Inpatient (IN) | payer MEDICARE, MEDICAID ==
[~2019-04-09 17:49] MED LIST changes: +Iopamidol 370 76% 50 ML VIAL FS ONE; -Lidocaine 2% PF 100 mg/5 ml Syringe ONE; +Sodium Bicarb 50 MEQ/50 ML Abboject 8.4% SYRINGE ONE; -Sodium Chloride 0.9% 15 ML NEB ONE
[2019-04-09 18:54] LABS: Hemoglobin 6.7 g/dL (12.0-16.0); Mean Corpuscular HGB CONC 32.7 g/dL (32.0-36.0); Mean Corpuscular Hemoglobin 33.2 pg (27.0-31.0); Mean Platelet Volume 6.8 fL (7.4-10.4); Platelet Count 224 thou/uL (130-400); RBC Distribution Width 19.8 % (11.5-14.5); Red Blood Cell (RBC) Count 2.01 mill/uL (4.20-5.40)
[2019-04-09] MEDS ORDERED: Morphine 4 MG/ML VIAL ONE (19:05)
[2019-04-09 19:07] LABS: Anisocytosis MODERATE=16-30 cells (100X) (0-5/hpf); Band 7 % (5-11); Lymphocytes 11 % (21-51); MDiff Complete? YES; Macrocytosis SLIGHT = 6-15 cells (100X) (0-5/hpf); Monocytes 1 % (0-10); Neutrophil 80 % (42-75); Nucleated RBC 2 % (0); Ovalocytes SLIGHT = 2-5 cells (100X) (0-1/hpf); Platelet Morphology Comment Appears Adequate; Polychromasia MODERATE = 3-4 cells (100X) (0-2/hpf); Reactive Lymphocytes 1 % (0-10); Schistocytes SLIGHT = 2-5 cells (100X) (0-1/hpf); Tear Drops SLIGHT = 2-5 cells (100X) (0-1/hpf); White Blood Cell (WBC) Count 13.8 thou/uL (4.8-10.8)
[2019-04-09 19:09] LABS: ALT (SGPT) 16 U/L (8-55); AST (SGOT) 17 U/L (5-34); Albumin 3.4 g/dL (3.4-4.8); Alkaline Phosphatase 40 U/L (40-110); Anion Gap 13 mmol/L (10-20); BUN (Urea Nitrogen) 60 mg/dL (9.8-20.1); Bilirubin, Total 0.5 mg/dL (0.2-1.2); CK (CPK) 87 U/L (29-168); Calc. Creatinine Clearance 0 mL/min (70-130); Calcium 8.2 mg/dL (7.8-10.44); Carbon Dioxide 19 mmol/L (23-31); Chloride 114 mmol/L (98-107); Estimated GFR-MDRD 55; Globulin 2.1 g/dL (2.4-3.5); Glucose 199 mg/dL (83-110); Potassium 4.7 mmol/L (3.5-5.1); Protein, Total 5.5 g/dL (6.0-8.3); Sodium 141 mmol/L (136-145)
[2019-04-09 19:30] LABS: CKMB 2.5 ng/mL (0-6.6)
[2019-04-09 19:34] LABS: INR-International Normal Ratio 1.4; PTT 29.6 SEC (22.9-36.1)
--- NOTE | 2019-04-09 20:06 | CT ---
CTA ABDOMEN AND PELVIS AND LOWER EXTREMITIES: 04/09/19 INDICATIONS: Peripheral arterial disease. Left lower extremity arterial ischemia. Correlation made to 01/24/19. FINDINGS: Atherosclerotic changes of the abdominal aorta are again noted and unchanged. Bilateral common iliac artery stents. Stenosis in both common iliacs, unchanged from the recent exam. High grade stenosis of left common femoral. Occlusion of the left superficial femoral artery and its origin again noted. There appears to be reconstitution of the popliteal due to collaterals from the p rofunda. Diffuse disease below the knee; however, there does appear to be three vessel runoff to the ankle through these reconstituted vessels. Findings are unchanged from the recent exam. On the right, atherosclerotic changes in the external iliac with significant stenosis. Significant st enosis in the right superficial femoral at its origin with occlusion of the right superficial femoral of the mid thigh. Reconstitution at the popliteal. Three vessels are seen to the ankle. IMPRESSION: Atherosclerotic disease in both lower extremities with findings similar to the recent exam of 01/24/19 . There is occlusion of both superficial femoral arteries with reconstitution of distal popliteal due to collaterals from the profunda bilaterally. POS: AGW
--- NOTE | 2019-04-09 20:06 | RAD ---
Radiograph right foot 3 views: DATE: 04/09/2019 Time: 7:31 PM HISTORY: 73-year-old female with wound at right great toe. Rule out osteomyelitis. COMPARISON: None FINDINGS: Diffuse osteopenia and coarse trabecular markings are such that it is difficult to determine whether or not the apparent region of low attenuation at the lateral base of the first distal phalanx is part of the osteopenia or represents early osteomyelitis. This is on the opposite side of a small cut aneous shallow defect just medial to the first distal tuft. No destruction of the first distal tuft. No destructive osseous lesion at other bones. No high-grade DJD. IMPRESSION: Equivocal findings at the lateral base of the first distal phalanx.
[2019-04-09 22:06] LABS: Troponin I 0.104 ng/mL (< 0.028)
[2019-04-09 22:26] VITALS: BMI 33.5
[2019-04-09] MEDS ORDERED: Dextrose 50% Abboject 50 ML SYRINGE SLOW IVP PRN (22:28)
[2019-04-09] MEDS ORDERED: Dextrose 5% in Water 1,000 ML IV PRN (22:28)
[2019-04-09] MEDS ORDERED: Ondansetron PF 4 MG/2 ML Vial IVP PRN (22:28)
[2019-04-09] MEDS ORDERED: Acetaminophen 325 MG TAB PO PRN (22:28)
[2019-04-09] MEDS ORDERED: HumaLOG 300 UNITS/3 ML VIAL SC PRN (22:28)
[2019-04-09] MEDS ORDERED: PROVENTIL INHALER 6.7 G (200 INHALATIONS) INH PRN (22:28)
[2019-04-09] MEDS ORDERED: Albuterol Sulfate 1.25 MG/3 ML NEB NEB PRN (22:28)
[2019-04-09] MEDS ORDERED: Bisacodyl 10 MG SUPP PR PRN (22:28)
[2019-04-09] MEDS ORDERED: Senokot S 8.6-50 MG TAB PO PRN (22:28)
[2019-04-09] MEDS ORDERED: Guaifenesin DM 100-10/5 ML UDCUP PO PRN (22:28)
[2019-04-09] MEDS ORDERED: Ketorolac Tromethamine 30 MG/ML VIAL IVP SCH (23:00)
[2019-04-09] MEDS: Morphine 2 MG/ML SYRINGE SLOW IVP PRN (23:35)
[2019-04-10] MEDS: HYDROcodone/Acetaminophen 5/325 mg Tablet PO PRN ×3 (01:24→18:33)
[2019-04-10] MEDS ORDERED: Sodium Chloride 0.9% (PF) 10 ML VIAL FS PRN (02:38)
[2019-04-10 02:45] LABS: Troponin I 0.138 ng/mL (< 0.028)
--- NOTE | 2019-04-10 03:20 | HP ---
PRIMARY CARE PHYSICIAN: Kristi Weber. CHIEF COMPLAINT: Leg pain. HISTORY OF PRESENT ILLNESS: Ms. Hadley is a 73-year-old female, who reported to the emergency room today for evaluation of numbness, tingling, and pain to the left lower leg. PAST MEDICAL HISTORY: Pertinent for diabetes; neuropathy; pacemaker, which was placed in January of 2019; quadruple bypass; PAD, has stents in both legs, has 100% blockage in the left lower extremity. She also has a history of AFib and on Eliquis. She has a slowly healing wound to the right great toe that has been followed by Wound Care. Also, has a history of congestive heart failure, hypertension, hyperlipidemia, osteoarthritis, and asthma. She is a former smoker, quit more than 10 years ago. She was evaluated in the ER. White blood cell count 13.8, hemoglobin 6.7, hematocrit 20.4, and platelet count 224. PT 17. Chemistry; chloride 114, carbon dioxide 19, BUN , creatinine is 1, GFR is 55, and glucose 199. Troponin x2 are in the indeterminate range of 0.142 and 0.104. ER ordered a CT, CTA angio with bilateral runoff, which showed the impression of atherosclerotic disease in both lower extremities with findings similar to the recent exam of 01/24/2019. Occlusion of both superficial femoral arteries with reconstitution of distal popliteal due to collaterals from the profunda bilaterally. She was admitted to [facility] for vascular neuro checks q.4 and further evaluation and a Cardiovascular Surgery consultation. She was also found to be anemic with a hemoglobin of 6.8 and blood has been ordered. Patient had an x-ray of the right foot, shows diffuse osteopenia and coarse trabecular markings which makes it difficult to definitively say osteopenia or early osteomyelitis. For further evaluation, Wound Care, possible ID as needed. PAST MEDICAL HISTORY: 1. Diabetes mellitus. 2. Osteoarthritis. 3. Asthma. 4. TIA. 5. Peripheral vascular disease. 6. Hypertension. 7. Coronary artery disease. 8. Atrial fibrillation. 9. Chronic kidney disease, stage 3. 10. Diastolic heart failure. 11. Valvular heart disease. 12. Anemia. 13. Cataracts. 14. History of GI bleeding. 15. Bradycardia requiring a pacemaker in January of this year. PAST SURGICAL HISTORY: Hysterectomy, tonsillectomy, coronary artery bypass x4, right carotid endarterectomy with a bovine pericardial patch, left carotid endarterectomy with bovine patch angioplasty, bilateral common femoral with bovine pericardial patch in 2013, pacemaker placement for sinus bradycardia, hysterectomy, tonsillectomy, 4-vessel CABG, and peripheral vascular disease. FAMILY HISTORY: Significant for coronary artery disease and rectal cancer. SOCIAL HISTORY: Nonsmoker, nondrinker. Full code. Kulwinder is her surrogate decision maker. ALLERGIES: PENICILLIN AND LACTOSE. HOME MEDICATIONS: 1. Tylenol 325 mg p.o. q.6 hours as needed. 2. Albuterol 1.25 mg nebs q.4 hours as needed. 3. Proventil HFA two puffs q.4 hours as needed. 4. Aspirin 81 mg p.o. daily. 5. Budesonide and formoterol 160-4.5 two puffs b.i.d. 6. Vitamin D 2000 units daily. 7. Fish oil one cap p.o. b.i.d. 8. Prozac 40 mg p.o. daily. 9. Flonase 2 sprays each nostril daily. 10. Insulin NovoLog 20 units q.a.m. 11. Isosorbide 30 mg p.o. daily. 12. Metoprolol 12.5 mg p.o. q.p.m. 13. Singulair 10 mg p.o. at bedtime. 14. Lyrica 300 mg p.o. at bedtime. 15. Simvastatin 20 mg p.o. daily. 16. Triamcinolone 1 application topical b.i.d. 17. Eliquis 5 mg p.o. b.i.d. 18. Multaq 400 mg p.o. b.i.d. 19. Multivitamin p.o. daily. REVIEW OF SYSTEMS: Patient reports lower extremity left side cramping, numbness, right foot wound. She denies any injury or trauma. Denies fever or chills. Denies abdominal pain, nausea, vomiting, or diarrhea. Does report some shortness of breath. All systems are reviewed and are negative unless otherwise mentioned in the HPI. PHYSICAL EXAMINATION: VITAL SIGNS: Blood pressure 106/47, pulse is 85, respirations are 18, temperature is 98.1, and O2 sats 98% on 2 L. CONSTITUTIONAL: Patient appears in mild pain and distress. She is pale. She is alert and oriented to person, place and time. HEENT: Head is atraumatic and normocephalic. Eyes, pupils are equally round and reactive to light. Eyelids are normal to inspection. Conjunctivae are pale. ENT; mouth exam is normal. Mucous membranes are pale but moist. NECK: Normal range of motion. Trachea is midline. RESPIRATORY: Chest breath sounds are clear. Breath expansion is equal. CARDIOVASCULAR: Regular rate and rhythm. Heart sounds, she has a loud murmur. ABDOMEN: Nontender. Bowel sounds are heard. BACK: Normal range of motion. No tenderness. EXTREMITIES: Upper extremity, normal range of motion. Sensation intact. Radial pulses are normal. Lower extremity, left foot is cool. Decreased pulse by Doppler on the left versus right. Lower extremity exam, normal range of motion. Motor strength is normal. She has an ulcer on the bottom of the right great toe. SKIN: Warm, dry, and pale. PSYCHIATRIC: Normal affect. LABORATORY: EKG shows atrial sensed ventricular paced rhythm, beats per minute 95. PLAN/ASSESSMENT: 1. Symptomatic anemia. Two units of packed red blood cells have been ordered to transfuse. The first one check CBC after the unit infused. Guaiac occult stool has been ordered. Patient does have a history of gastrointestinal bleed in the past. Patient is on Eliquis and aspirin and these will be held. 2. Left leg pain with cool extremity. History of peripheral artery disease. Cardiovascular Surgery, Dr. Prince, was contacted by Dr. Orourke. Case was discussed. No new orders. Cardiovascular Surgery has been consulted for the a.m. Dr. Damon is patient's normal CV surgeon. JAKE was performed in the ER, right is 0.72, left is 0.35. Patient with severe atherosclerosis on the CTA with runoff, appears when compared to similar in January of 2019 to be similar. 3. History of hypertension. We will restart home medications. We will trend. 4. Hyperlipidemia. We will restart home medications. 5. History of chronic diastolic heart failure. Restart home medications. 6. History of chronic kidney disease, stage 3. We will monitor. Recheck in the a.m. Hold any nephrotoxics. 7. Diabetes, type 2. Accu-Cheks a.c. and at bedtime, sliding scale insulin for coverage. 8. Gastrointestinal prophylaxis started. 9. Hospital course is dependent on clinical findings. Job ID: [id number]
--- NOTE | 2019-04-10 03:50 | PDOC.HOSPP ---
- Subjective Encounter Date: 04/09/19 Encounter Time: 11:00 Subjective: c/o left leg constant pain x 2days, no sob or palp daughter at bedside - Objective Vital Signs & Weight: Vital Signs (12 hours) Temp Pulse Pulse Resp BP BP Pulse Ox 04/10/19 03:19 98 04/10/19 02:59 97.5 F L 99 18 92/45 L 98 04/10/19 00:08 97.6 F 103 H 18 110/52 L 98 04/10/19 00:00 97.9 F 04/09/19 23:52 97.6 F 18 94 L 04/09/19 22:20 97.8 F 102 H 18 107/74 98 Weight Weight 214 lb 8 oz Most Recent Monitor Data Heart Rate from ECG 96 NIBP 104/48 Respiration from ECG 18 I&O: 04/08/19 04/09/19 04/10/19 06:59 06:59 06:59 Intake Total 0 Balance 0 Result Diagrams: 04/09/19 18:43 04/09/19 18:43 Hospitalist ROS - Medication Medications: Active Medications Generic Name Dose Route Start Last Admin Trade Name Freq PRN Reason Stop Dose Admin Hydrocodone Bitart/Acetaminophen 1 tab 04/09/19 22:28 04/10/19 01:24 [place] 5/325 PO 1 tab Q4H PRN Administration Moderate Pain (4-6) Morphine Sulfate 2 mg 04/09/19 22:28 04/09/19 23:35 Morphine SLOW IVP 04/10/19 10:00 2 mg Q2H PRN Administration Severe Pain (7-10) Sodium Chloride 10 ml 04/09/19 22:27 04/09/19 23:36 Flush - Normal Saline IVF 04/10/19 10:00 10 ml PRN PRN Administration Saline Flush - Exam General Appearance: awake alert Eye: PERRL, anicteric sclera Eye - other findings: pallor++ ENT: no oropharyngeal lesions, moist mucosa Neck: supple, no JVD Heart: RRR, no gallops, murmur present Respiratory: no wheezes, no rales Gastrointestinal: soft, non-tender, non-distended, normal bowel sounds Extremities: no cyanosis, no edema Neurological: cranial nerve grossly intact, no focal deficits Psychiatric: normal affect, A&O x 3 Hosp A/P (1) PAD (peripheral artery disease) Code(s): I73.9 - PERIPHERAL VASCULAR DISEASE, UNSPECIFIED Status: Acute (2) Acute on chronic anemia Code(s): D64.9 - ANEMIA, UNSPECIFIED Status: Acute (3) ALISHA (acute kidney injury) Code(s): N17.9 - ACUTE KIDNEY FAILURE, UNSPECIFIED Status: Acute (4) Moderate mitral stenosis Code(s): I05.0 - RHEUMATIC MITRAL STENOSIS Status: Chronic (5) CAD (coronary artery disease) Code(s): I25.10 - ATHSCL HEART DISEASE OF [place] CORONARY ARTERY W/O ANG PCTRS Status: Chronic Qualifiers: Coronary Disease-Associated Artery/Lesion type: bypass graft [place] vs. transplanted heart: [place] heart Associated angina: without angina Qualified Code(s): I25.810 - Atherosclerosis of coronary artery bypass graft(s) without angina pectoris (6) Chronic kidney disease, stage 3 Code(s): N18.3 - CHRONIC KIDNEY DISEASE, STAGE 3 (MODERATE) Status: Chronic (7) DM type 2 (diabetes mellitus, type 2) Status: Chronic Qualifiers: Diabetes mellitus longterm insulin use: with longterm use Diabetes mellitus complication status: with kidney complications Diabetes mellitus complication detail: with chronic kidney disease Chronic kidney disease stage : stage 3 (moderate) Qualified Code(s): E11.22 - Type 2 diabetes mellitus with diabetic chronic kidney disease; N18.3 - Chronic kidney disease, stage 3 ( moderate); Z79.4 - retirement (current) use of insulin (8) Dyslipidemia Code(s): E78.5 - HYPERLIPIDEMIA, UNSPECIFIED Status: Chronic (9) HTN (hypertension) Code(s): I10 - ESSENTIAL (PRIMARY) HYPERTENSION Status: Chronic Qualifiers: (10) Paroxysmal a-fib Code(s): I48.0 - PAROXYSMAL ATRIAL FIBRILLATION Status: Chronic - Plan Patient seen and examined, agree with docomentation of Ms.O'Briant Andujar. Doppler signals are not there in left DP and PT with rest pain, extremities b/l cold to touch, has right gr toe gangrene severe anemia, is getting 2 u prbc toradol prn for pain d/w over phone re-evaluated around 2am on 04/10/2019, is resting comfortably, no pain now hemostable Have given complete updates to patient and daughter at bedside she wants to be full code.
[2019-04-10 04:17] LABS: Band 8 % (5-11); Hemoglobin 7.4 g/dL (12.0-16.0); Hypochromia SLIGHT = 6-15 cells (100X) (0-5/hpf); Lymphocytes 8 % (21-51); MDiff Complete? YES; Mean Corpuscular HGB CONC 33.2 g/dL (32.0-36.0); Mean Corpuscular Hemoglobin 33.1 pg (27.0-31.0); Mean Corpuscular Volume 99.6 fL (78.0-98.0); Mean Platelet Volume 6.9 fL (7.4-10.4); Metamyelocyte 1 % (0-0); Monocytes 7 % (0-10); Neutrophil 76 % (42-75); Nucleated RBC 3 % (0); Platelet Count 231 thou/uL (130-400); Platelet Morphology Comment Appears Adequate; RBC Distribution Width 20.5 % (11.5-14.5); Red Blood Cell (RBC) Count 2.22 mill/uL (4.20-5.40); White Blood Cell (WBC) Count 17.3 thou/uL (4.8-10.8)
[2019-04-10 04:19] LABS: ALT (SGPT) 14 U/L (8-55); AST (SGOT) 21 U/L (5-34); Albumin 3.4 g/dL (3.4-4.8); Alkaline Phosphatase 38 U/L (40-110); Anion Gap 18 mmol/L (10-20); BUN (Urea Nitrogen) 59 mg/dL (9.8-20.1); Bilirubin, Total 1.4 mg/dL (0.2-1.2); Calc. Creatinine Clearance 57 mL/min (70-130); Calcium 8.2 mg/dL (7.8-10.44); Carbon Dioxide 15 mmol/L (23-31); Chloride 113 mmol/L (98-107); Estimated GFR-MDRD 38; Glucose 300 mg/dL (83-110); Magnesium 1.8 mg/dL (1.6-2.6); Potassium 5.2 mmol/L (3.5-5.1); Protein, Total 5.4 g/dL (6.0-8.3); Sodium 141 mmol/L (136-145)
[2019-04-10] MEDS: HumaLOG 300 UNITS/3 ML VIAL SC PRN ×2 (07:20→13:53)
[2019-04-10] MEDS: Mometasone/Formoterol 120 PUFF INHALER INH SCH ×2 (07:58→19:25)
[2019-04-10] MEDS ORDERED: Pantoprazole 40 MG VIAL IVP SCH (09:00)
[2019-04-10] MEDS ORDERED: Aspirin Chewable 81 MG TAB PO SCH (09:00)
[2019-04-10] MEDS ORDERED: Non-Formulary Item 1 EACH (Omega-3 Fatty Acids/Fish Oil [Omega 3 1,000 Mg Softgel] 1 CAP) PO SCH (09:00)
[2019-04-10] MEDS ORDERED: Apixaban 5 MG TAB PO SCH (09:00)
[2019-04-10] MEDS: Morphine 2 MG/ML SYRINGE SLOW IVP PRN (09:15)
[2019-04-10] MEDS: Dronedarone HCl 400 MG TAB PO SCH ×2 (09:16→17:46)
[2019-04-10] MEDS: FLUoxetine HCl 20 MG CAP PO SCH (09:16)
[2019-04-10] MEDS: Vit A,C & E/Lutein/Minerals Tablet PO SCH ×2 (09:17→21:20)
[2019-04-10] MEDS: Fish Oil 1,000 MG CAP PO SCH ×2 (09:17→21:20)
[2019-04-10] MEDS: Isosorbide Mononitrate (ER) 30 MG TAB PO SCH (09:17)
[2019-04-10] MEDS ORDERED: Rocuronium Bromide 10 MG/ML (10ML VIAL) ONE (10:58)
[2019-04-10] MEDS ORDERED: PHENYLEPHRINE-NS 100 MCG/ML 10 ML SYRINGE ONE (10:58)
[2019-04-10] MEDS ORDERED: Sodium Chloride 0.9% 1,000 ML IV SCH (12:45)
[2019-04-10] MEDS ORDERED: Morphine 2 MG/ML SYRINGE SLOW IVP PRN (12:58)
[2019-04-10] MEDS ORDERED: Morphine 4 MG/ML VIAL SLOW IVP PRN (12:58)
[2019-04-10 12:59] LABS: Hemoglobin 7.7 g/dL (12.0-16.0)
[2019-04-10] MEDS: Sodium Chloride 0.9% 1,000 ML IV SCH (14:07)
[2019-04-10] MEDS ORDERED: SUGAMMADEX SODIUM 500 MG/5 ML VIAL ONE (15:07)
--- NOTE | 2019-04-10 15:18 | CON ---
DATE OF CONSULTATION: 04/10/2019 REQUESTING PHYSICIAN: Dr. Orourke. CHIEF COMPLAINT: Left foot pain. HISTORY OF PRESENT ILLNESS: The patient is a 73-year-old woman with a history of diffuse atherosclerotic disease, having undergone coronary, cervical carotid, and lower extremity revascularization procedures in the past by Dr. Damon. She was lost to his followup about 2 years ago and in reviewing recent hospitalizations, it would appear that some of her peripheral vascular followup has been done by Dr. Parisi. On Thursday night, she developed pain in her left foot that has persisted over the last several days. She came to the emergency room last night after three days of continuous pain and was admitted to the hospital. She had a CTA of the lower extremities in January presumably in relation to evaluating the wound on the plantar aspect of her right great toe and the radiologist's interpretation is that the CTA she had last night is reasonably similar to the one she had two months ago. The patient is mostly moaning and is able to give me very few insights as to the suddenness of onset of the pain, why she waited three days to come to the hospital and any antecedent symptoms or how long she has had a wound on her right foot. PAST MEDICAL HISTORY: Significant for coronary artery disease, cerebrovascular disease, peripheral vascular disease, diabetes mellitus, and diabetic neuropathy. PAST SURGICAL HISTORY: Includes tonsillectomy, hysterectomy, coronary artery bypass grafting x4 in October of 2010, that procedure used the left internal mammary artery for her LAD and reverse greater saphenous veins for ramus intermedius and OM1 and a PDA. The vein was harvested from the left thigh and proximal calf. She underwent staged bilateral carotid endarterectomies in the fall of 2010 and in 2012, she underwent bilateral common iliac stenting, stenting of her right external iliac and bilateral common femoral endarterectomies for aortoiliac disease with right foot ischemic rest pain. She has atrial fibrillation. HOME MEDICINES: 1. NovoLog 70/30, 20 units in the morning and in the evening. 2. Lyrica 300 mg at bedtime. 3. Eliquis 5 mg p.o. b.i.d. 4. Baby aspirin a day. 5. Simvastatin 20 mg at bedtime. 6. Symbicort two puffs b.i.d. 7. Singulair 10 mg at bedtime. 8. P.r.n. albuterol. 9. Toprol-XL 12.5 mg in the evening. 10. Fish oil. 11. Multaq 400 mg b.i.d. 12. Prozac 40 mg a day. 13. Vitamin and mineral supplements. ALLERGIES: SHE REPORTS ALLERGIES TO PENICILLINS, CLINDAMYCIN, AND LACTOSE INTOLERANCE. SOCIAL HISTORY: She quit smoking around 10 years ago. FAMILY HISTORY: Significant for diabetes, hypertension, and coronary artery disease in her father. REVIEW OF SYSTEMS: Very difficult to obtain. She is not able to give me any specific answers without claudication symptoms, the onset of her rest pain symptoms or how long she has been dealing with the ulcer on her foot. In reviewing her encounter list, I see wound care visits going back about 6 weeks. CTA in mid January. PHYSICAL EXAMINATION: GENERAL: She is a chronically ill-appearing woman with significant truncal obesity. She is mostly just moaning and groaning. VITAL SIGNS: The patient's height is 5 feet 7 inches, weight is 214.5 pounds. RESPIRATORY: She has coarse breath sounds. CARDIOVASCULAR: Irregular rate and rhythm. ABDOMEN: Obese, soft, and nontender. She has a fairly easily palpable right femoral pulse, left femoral pulse is palpable, but diminished compared to the right, was not able to palpate pedal pulses. There is chronic atrophic skin changes on both feet, more pronounced perhaps on the left than on the right. The left foot is a little bit cooler. Ankles are both mobile, but the right side is a little bit more freely as though compartments are soft and nontender in both lower legs. There is a bandaged wound on the plantar aspect of the right great toe. There is a slight dusky cast that is more pronounced on the left foot than on the right. LABORATORY DATA: White count of 13.8, hemoglobin is 6.7, hematocrit 20.4, platelets 224,000. Potassium 4.7, chloride 114, CO2 of 19, glucose 199, BUN 60, creatinine 1.0, albumin is 3.4, CK is 87. Last chest x-ray that I view for her is from January that showed massive cardiomegaly, very prominent pulmonary markings of hilar fluffy pattern consistent with pulmonary edema, sternal wires and placement of pacemaker that are new versus an x-ray from two days earlier. Transesophageal echocardiogram in June of this year that showed an LVEF of 50% to 55% with moderate aortic and mitral stenosis. Her CT aortogram with an extensive atherosclerotic changes in the aortoiliac system. The report describes a high-grade stenosis of the left common femoral and occlusion of the left SFA, although on my review and the degree of calcification in her vessels makes assessment of the lumen quite difficult. IMPRESSION AND RECOMMENDATIONS: The strength of patient's left femoral pulse could perhaps be consistent with the description of stenosis at that level. She has been taken off her Eliquis. Assessment of her rather profound anemia needs to be undertaken and I will let Dr. Damon know of her admission. Job ID: [id number]
[2019-04-10] MEDS ORDERED: Promethazine HCl 25 MG/ML VIAL SLOW IVP PRN (15:39)
[2019-04-10] MEDS ORDERED: Ondansetron HCl/PF 4 MG/2 ML Vial IVP PRN (15:39)
[2019-04-10] MEDS ORDERED: Promethazine HCl 25 MG/ML VIAL IM PRN (15:39)
[2019-04-10] MEDS: Pantoprazole 80 MG in Sodium Chloride 0.9% 100 ML IVP SCH (16:05)
--- NOTE | 2019-04-10 17:19 | PDOC.HOSPP ---
- Subjective Encounter Date: 04/10/19 Encounter Time: 17:00 Subjective: f/u for anemia with nursing reporting hematemesis of clots today. Previously on Eliquis for PAD. Received 2u PRBC's, Protonix IV and IVF's. - Objective Vital Signs & Weight: Vital Signs (12 hours) Temp Pulse Resp BP Pulse Ox 04/10/19 16:15 97.7 F 04/10/19 16:10 98.3 F 04/10/19 12:00 97.1 F L 04/10/19 09:03 97.7 F 04/10/19 08:00 2 L 04/10/19 07:08 97.0 F L 04/10/19 06:15 97.6 F 102 H 16 112/42 L 100 04/10/19 06:02 97.6 F 105 H 16 108/58 L 100 Weight Weight 214 lb 8 oz Most Recent Monitor Data Heart Rate from ECG 88 NIBP 127/62 NIBP BP-Mean 83 Respiration from ECG 35 SpO2 96 I&O: 04/09/19 04/10/19 04/11/19 06:59 06:59 06:59 Intake Total 870 350 Balance 870 350 Result Diagrams: 04/10/19 11:57 04/10/19 03:25 Additional Labs: Laboratory Tests 09/25/16 09/25/16 09/25/16 23:10 23:10 23:10 WBC Hgb MCV Neutrophils % (Manual) Sodium Potassium Carbon Dioxide Creatinine Iron Troponin I Less than 0.010 B-Natriuretic Peptide 131.9 H TSH 3rd Generation 2.1675 09/26/16 09/26/16 08/06/18 02:48 05:37 18:02 WBC Hgb MCV Neutrophils % (Manual) Sodium Potassium Carbon Dioxide Creatinine Iron 17 L Troponin I Less than 0.010 0.020 B-Natriuretic Peptide TSH 3rd Generation 08/06/18 08/07/18 08/07/18 21:07 06:06 06:06 WBC Hgb 7.7 L 8.6 L MCV Neutrophils % (Manual) Sodium Potassium Carbon Dioxide Creatinine 1.49 H Iron Troponin I B-Natriuretic Peptide TSH 3rd Generation 08/08/18 08/08/18 08/09/18 08:39 08:39 06:31 WBC Hgb 8.8 L 8.5 L MCV Neutrophils % (Manual) Sodium Potassium Carbon Dioxide Creatinine 1.42 H Iron Troponin I B-Natriuretic Peptide TSH 3rd Generation 08/09/18 08/10/18 08/10/18 06:31 09:09 09:09 WBC Hgb 7.9 L MCV Neutrophils % (Manual) Sodium 135 L 134 L Potassium Carbon Dioxide Creatinine 1.48 H 1.37 H Iron Troponin I B-Natriuretic Peptide TSH 3rd Generation 04/09/19 04/09/19 04/09/19 18:43 18:43 18:43 WBC 13.8 H Hgb 6.7 L MCV 102.0 H Neutrophils % (Manual) 80 H Sodium Potassium 4.7 Carbon Dioxide 19 L Creatinine 1.00 Iron Troponin I 0.142 H B-Natriuretic Peptide TSH 3rd Generation 04/09/19 04/10/19 04/10/19 21:38 02:13 03:25 WBC Hgb 7.4 L MCV Neutrophils % (Manual) 76 H Sodium Potassium Carbon Dioxide Creatinine Iron Troponin I 0.104 H 0.138 H B-Natriuretic Peptide TSH 3rd Generation EKG Reviewed by me: Yes (Tele - V-pacing) Hospitalist ROS - Medication Medications: Active Medications Generic Name Dose Route Start Last Admin Trade Name Freq PRN Reason Stop Dose Admin Hydrocodone Bitart/Acetaminophen 1 tab 04/09/19 22:28 04/10/19 08:14 [place] 5/325 PO 1 tab Q4H PRN Administration Moderate Pain (4-6) Dronedarone 400 mg 04/10/19 08:00 04/10/19 09:16 Multaq PO 400 mg BID-WM ISIDORO Administration Fish Oil 1,000 mg 04/10/19 09:00 04/10/19 09:17 Fish Oil PO 1,000 mg BID ISIDORO Administration Fluoxetine HCl 40 mg 04/10/19 09:00 04/10/19 09:16 Prozac PO 40 mg DAILY ISIDORO Administration Sodium Chloride 1,000 mls @ 125 mls/hr 04/10/19 12:45 04/10/19 14:07 Normal Saline 0.9% IV 1,000 mls .Q8H ISIDORO Administration Pantoprazole Sodium 80 mg/ 100 mls @ 10 mls/hr 04/10/19 12:45 04/10/19 16:05 Sodium Chloride IVP 100 mls INF ISIDORO Administration Insulin Human Lispro 0 units 04/09/19 22:28 04/10/19 13:53 Humalog SC 6 unit .MODERATE SLIDING SC PRN Administration Moderate Correctional Scale Isosorbide Mononitrate 30 mg 04/10/19 09:00 04/10/19 09:17 Imdur Er PO 30 mg DAILY ISIDORO Administration Mometasone Furoate/Formoterol Fumar 2 puff 04/10/19 06:30 04/10/19 07:58 Dulera 200 Mcg/5 Mcg Inhaler INH Not Given BID-[facility] Multivitamins/Minerals 1 tab 04/10/19 09:00 04/10/19 09:17 Ocuvite With Lutein PO 1 tab BID ISIDORO Administration Ondansetron HCl 4 mg 04/09/19 22:28 04/10/19 13:53 Zofran IVP 4 mg Q6H PRN Administration Nausea/Vomiting - Exam General - other findings: pale, awake Eye: PERRL, anicteric sclera ENT: normocephalic atraumatic, no oropharyngeal lesions, dry oral mucosa Neck: supple, symmetric, no JVD, no thyromegaly Heart: RRR, no gallops, no rubs Respiratory: CTAB, no wheezes, no rales, no ronchi Gastrointestinal: soft, non-tender, non-distended, no palpable masses, diminished bowl sounds Extremities: no cyanosis, no edema Skin: normal turgor Skin - other findings: pale Neurological: cranial nerve grossly intact, no new deficit Musculoskeletal: normal tone, generalized weakness Psychiatric: normal affect, A&O x 3 Hosp A/P (1) Acute upper GI bleed Code(s): K92.2 - GASTROINTESTINAL HEMORRHAGE, UNSPECIFIED Status: Acute Plan: Start Protonix IV gtt, stat H/H, consult GI service for EGD, hold all NSAID's and anticoagulation, IVF's (2) Acute blood loss anemia Code(s): D62 - ACUTE POSTHEMORRHAGIC ANEMIA Status: Acute Plan: s/p 2u PRBC's, serial H/H, see #1 above, repeat CBC in am (3) ALISHA (acute kidney injury) Code(s): N17.9 - ACUTE KIDNEY FAILURE, UNSPECIFIED Status: Acute Plan: Avoid nephrotoxic medications/limit contrast exposure, serial creatinine (4) Chronic anticoagulation Code(s): Z79.01 - BEVEL POLISHER (CURRENT) USE OF ANTICOAGULANTS Status: Acute Plan: Hold Eliquis pending workup for UGI bleeding (5) Chronic kidney disease, stage 3 Code(s): N18.3 - CHRONIC KIDNEY DISEASE, STAGE 3 (MODERATE) Status: Chronic - Plan PT/OT, pediatric social worker NPO now Consult GI for EGD Hold all anticoagulation/NSAIDs Appreciate Vascular Surgery assistance Continue Protonix IV gtt AM Lab: BMP, CBC
--- NOTE | 2019-04-10 18:08 | CON ---
DATE OF CONSULTATION: 04/10/2019 TIME: 1:30 p.m. REASON FOR CONSULTATION: Hematemesis today while on the IMU. HISTORY OF PRESENT ILLNESS: Ms. Hadley is a 73-year-old female with diffuse vascular disease, prior CABG in 2010, and bilateral carotid endarterectomies in the past as well, who has been in and out of the hospital recently several times every couple of months. She was admitted early this morning after presenting yesterday for complaints of numbness in her left leg and some pain in her left leg. She apparently has chronic peripheral vascular disease, has been followed by Wound Care and has been on Eliquis for this and for atrial fibrillation. She is admitted to the hospital for possible osteomyelitis versus osteopenia and for evaluation by her vascular surgeon. She was additionally found to be anemic and guaiac positive. She was transfused 2 units of blood for a hemoglobin of 6.7. Her hemoglobin had been 12.4 on 01/28, but back in last September, it had dropped down is 7 and 8, at that time she had had a GI bleed. In August, she had upper and lower endoscopy with 2 small gastric erosions, 5 to 6 mm in size. There was some antrum deformity and she had biopsies that also were positive for H pylori, it is unclear if these were treated. She had a colonoscopy as well with a tortuous sigmoid colon and two small vascular ectasias in the cecum and proximal ascending colon. These were cauterized with argon plasma coagulation, and a small benign polyp was removed at that time as well. Apparently today, she began to get nauseated and threw up and threw up blood clot several times. I was asked to come evaluate her. She was being resuscitated with IV fluids. Her hemoglobin had been 7.4 this morning after being transfused 2 units with a hemoglobin of 6.7 last night hemoglobin is 7.7. I had the nurses placed an NG tube. There was some red material came up. She was typed and crossed and we are going to bring her down for endoscopy. PAST MEDICAL HISTORY: Coronary artery disease, previous coronary bypass grafting in 2010; atrial fibrillation; peripheral vascular disease; hypertension; TIAs; asthma; osteoarthritis; diabetes; chronic kidney disease, stage 3; diastolic heart failure; valvular heart disease; chronic anemia; cataracts; bradycardia with pacemaker placement in January of this year. PAST SURGICAL HISTORY: Hysterectomy, tonsillectomy, coronary artery bypass x4, right carotid enterectomy with bovine pericardial patch, left carotid endarterectomy with bovine patch angioplasty, bilateral common femoral bypass with bovine pericardial patch in 2012, pacemaker placement for sinus bradycardia, four-vessel CABG, and peripheral vascular disease. FAMILY HISTORY: Negative for colorectal cancer or liver disease. SOCIAL HISTORY: The patient does not smoke or drink. ALLERGIES: PENICILLIN AND LACTOSE. MEDICATIONS: At home; 1. Tylenol. 2. Albuterol. 3. Proventil. 4. Aspirin 81 mg a day. 5. Budesonide. 6. Vitamin D. 7. Folic acid. 8. Prozac. 9. Flonase. 10. Insulin. 11. Isosorbide. 12. Metoprolol. 13. Singulair. 14. Lyrica. 15. Simvastatin. 16. Triamcinolone. 17. Eliquis 5 mg p.o. b.i.d. 18. Multaq. 19. Multivitamin. REVIEW OF SYSTEMS: She denies any dysphagia or odynophagia. She does not remember if she was treated for H pylori after endoscopy in August of this year. PHYSICAL EXAMINATION: The patient is in the ICU. She is pale. VITAL SIGNS: Temperature is 97.1, blood pressure is 127/62, pulse 87. GENERAL: She is awake, but not alert and not oriented. LUNGS: Clear. HEART: Regular rate and rhythm without clicks or murmurs. ABDOMEN: Soft and nontender. There is no rebound. There is no guarding. EXTREMITIES: No clubbing, cyanosis, or edema. LABORATORY DATA: As per HPI. Platelets were 230. Sodium 141, potassium 5.2, BUN and creatinine are 59 and 1.38. Baseline BUN is around the 20s. Glucose 300s, bilirubin 1.4, magnesium 1.8. AST and ALT are 21 and 14, alkaline phosphatase 38. Troponin 0.138. Protein 5.4, albumin 3.4. ASSESSMENT: Upper gastrointestinal bleeding of unclear source. It does not seem there has been any emesis or retching to indicate a Jodi-Frederick tear. The patient did have upper endoscopy for severe anemia and colonoscopy for the same in August of this year and was found to have small gastric erosions and H pylori. PLAN: Type and cross, two large-bore IVs, lavage stomach, and proceed to endoscopy today. It seems the patient has been off her Eliquis for probably about 24 hours. She has had about 400 mL of emesis of blood, I think we will probably need to embark on endoscopy at this time. Risks, benefits, possible complications were discussed with the patient. She has no family available at the bedside presently. Called the patient's daughter's phone number in the chart and there was no answer. Job ID: [id number]
--- NOTE | 2019-04-10 18:43 | OP ---
DATE OF PROCEDURE: 04/10/2019 PROCEDURES PERFORMED: Esophagogastroduodenoscopy with control of hemorrhage. PREPROCEDURE DIAGNOSES: Gastrointestinal bleed with hematemesis, history of gastric erosions in August of 2018. POSTPROCEDURE DIAGNOSES: 1. There was some blood clot in the proximal stomach and cardia, which was evacuated away. There was found to be oozing in the proximal body/cardia with possible small visible vessel versus atypical ectasia. There was no ulcer seen. Cauterization with 7-Beninese heater probe to control bleeding. There was slight bleeding with cautery, but the vessel was able to be completely ablated and controlled. 2. Otherwise, no bleeding sites identified in the antrum, duodenal bulb, or second or third portions. Also, there were no signs of Jodi-Frederick tear or esophageal lesions. RECOMMENDATIONS: 1. Hold anticoagulation. 2. Continue PPI. 3. Liquids. We will follow along with you. ANESTHESIA: TIVA. PROCEDURE IN DETAIL: The patient was informed of the risks, benefits, and possible complications of endoscopy including perforation, reaction to medication, and aspiration, informed consent was obtained and the patient was brought into the endoscopy suite, where she was sedated in gradual standard fashion. Once she was comfortable, a bite block was placed inside the orifice. The patient had been intubated for airway protection. The endoscope was advanced through the esophagus, stomach, into the second and third portion of the duodenum, and slowly removed. The NG tube was removed and we put endoscope down. The esophagus was normal. No evidence of ulcers or erosions or bleeding sites. The GE junction showed no evidence of Jodi-Frederick tears or bleeding sites in forward or retroflexed views. In the proximal stomach, in the proximal body and cardia, there was old blood. This was all suctioned out and irrigated away. The remainder of the stomach showed no overt lesions when evaluating this area on close up. On retroflexed views, there could be seen some oozing from the mucosa, which seemed to be a small aberrant vessel consistent with an AVM. This was cauterized with 7-Beninese heater probe. Initially, there was more bleeding, but then it stopped with good ablation. This area was irrigated away and no further blood was noted to return. Remainder of the stomach was evaluated with irrigation. No small ulcers or erosions were seen. The incisura was evaluated closely. Then, the scope was advanced into duodenum into the bulb, 2nd and 3rd portions, and there was no active bleeding seen. There was some old blood in the duodenal bulb and this was irrigated away, that was only adherent to the surface with no clots. No underlying lesions were seen. No lesions were seen at the junction of the bulb and the second portion and on the third portion. After this was all irrigated away, there was no reaccumulation of blood. The duodenum was looked at again one more time. The scope was brought back in the stomach and was evaluated again in forward and retroflexed views with full distention. No other lesions were seen. No active bleeding was seen. The scope was used to desufflate the stomach and the scope was removed. The patient tolerated the procedure well with no complications. Job ID: [id number]
[2019-04-10] MEDS ORDERED: Montelukast Sodium 10 mg Tablet PO SCH (21:00)
[2019-04-10] MEDS ORDERED: Pregabalin 75 MG CAP PO SCH (21:00)
[2019-04-10] MEDS ORDERED: Atorvastatin Calcium 10 MG TAB PO SCH (21:00)
[2019-04-11] MEDS: Pantoprazole 80 MG in Sodium Chloride 0.9% 100 ML IVP SCH (00:21)
[2019-04-11] MEDS: Sodium Chloride 0.9% 1,000 ML IV SCH ×2 (00:21→04:45)
[2019-04-11 06:25] LABS: Band 1 % (5-11); Hemoglobin 7.7 g/dL (12.0-16.0); Lymphocytes 10 % (21-51); MDiff Complete? YES; Mean Corpuscular Hemoglobin 33.4 pg (27.0-31.0); Mean Platelet Volume 7.5 fL (7.4-10.4); Monocytes 7 % (0-10); Neutrophil 82 % (42-75); Nucleated RBC 10 % (0); Platelet Count 186 thou/uL (130-400); Platelet Morphology Comment Appears Adequate; RBC Distribution Width 22.6 % (11.5-14.5); Red Blood Cell (RBC) Count 2.29 mill/uL (4.20-5.40); White Blood Cell (WBC) Count 20.6 thou/uL (4.8-10.8)
[2019-04-11 07:45] LABS: Anion Gap 20 mmol/L (10-20); BUN (Urea Nitrogen) 78 mg/dL (9.8-20.1); Calc. Creatinine Clearance 38 mL/min (70-130); Calcium 7.7 mg/dL (7.8-10.44); Carbon Dioxide 12 mmol/L (23-31); Chloride 115 mmol/L (98-107); Estimated GFR-MDRD 24; Glucose 215 mg/dL (83-110); Potassium 5.7 mmol/L (3.5-5.1); Sodium 141 mmol/L (136-145)
[2019-04-11] MEDS: Dronedarone HCl 400 MG TAB PO SCH (08:00)
[2019-04-11] MEDS: Mometasone/Formoterol 120 PUFF INHALER INH SCH (08:29)
[2019-04-11] MEDS: FLUoxetine HCl 20 MG CAP PO SCH (09:00)
[2019-04-11] MEDS: Isosorbide Mononitrate (ER) 30 MG TAB PO SCH (09:00)
[2019-04-11] MEDS: Fish Oil 1,000 MG CAP PO SCH (09:00)
[2019-04-11] MEDS: Vit A,C & E/Lutein/Minerals Tablet PO SCH (09:00)
[2019-04-11] MEDS ORDERED: Norepinephrine 8 MG/0.9% NS 250 ML IVPB SCH (09:22)
[2019-04-11 09:25] LABS: Hemoglobin 7.1 g/dL (12.0-16.0); Mean Corpuscular HGB CONC 30.1 g/dL (32.0-36.0); Mean Corpuscular Hemoglobin 31.9 pg (27.0-31.0); Mean Platelet Volume 7.1 fL (7.4-10.4); Platelet Count 246 thou/uL (130-400); RBC Distribution Width 22.7 % (11.5-14.5); Red Blood Cell (RBC) Count 2.23 mill/uL (4.20-5.40); White Blood Cell (WBC) Count 32.7 thou/uL (4.8-10.8)
[2019-04-11] MEDS ORDERED: Calcium Gluc 4.6 MEQ/10 ML (100 MG/ML) SLOW IVP SCH (09:33)
[2019-04-11 09:41] LABS: ALT (SGPT) 123 U/L (8-55); AST (SGOT) 209 U/L (5-34); Albumin 2.9 g/dL (3.4-4.8); Alkaline Phosphatase 41 U/L (40-110); BUN (Urea Nitrogen) 77 mg/dL (9.8-20.1); Bilirubin, Total 0.8 mg/dL (0.2-1.2); Calc. Creatinine Clearance 34 mL/min (70-130); Calcium 7.5 mg/dL (7.8-10.44); Chloride 114 mmol/L (98-107); Estimated GFR-MDRD 21; Globulin 1.8 g/dL (2.4-3.5); Glucose 291 mg/dL (83-110); Potassium 6.1 mmol/L (3.5-5.1); Protein, Total 4.7 g/dL (6.0-8.3); Sodium 140 mmol/L (136-145)
--- NOTE | 2019-04-11 09:45 | PDOC.EVN ---
Event Note - Event Note Event Note: Code Blue called due to unresponsiveness and hypotension. Hx of GI bleed with gastric ulcers s/p 2u PRBC's with hgb 7. VS: 98.5, 46/32, 72, 24 Gen: lethargic, unresponsive, deluca Chest: LCTAB, minimal airflow in bases CV: S1, S2, no murmur ABD: obese, NT, ND, no mass EXT: cold, mottled, pulses by doppler at femorals bilat Neuro: unresponsive Labs: Laboratory Tests 09/25/16 09/25/16 09/25/16 23:10 23:10 23:10 WBC RBC Hgb Hct MCV Plt Count Neutrophils % (Manual) Sodium Potassium Chloride Carbon Dioxide Anion Gap BUN Creatinine Estimated GFR (MDRD) Glucose Calcium Iron Troponin I Less than 0.010 B-Natriuretic Peptide 131.9 H TSH 3rd Generation 2.1675 09/26/16 09/26/16 08/06/18 02:48 05:37 18:02 WBC RBC Hgb Hct MCV Plt Count Neutrophils % (Manual) Sodium Potassium Chloride Carbon Dioxide Anion Gap BUN Creatinine Estimated GFR (MDRD) Glucose Calcium Iron 17 L Troponin I Less than 0.010 0.020 B-Natriuretic Peptide TSH 3rd Generation 08/06/18 08/07/18 08/07/18 21:07 06:06 06:06 WBC RBC Hgb 7.7 L 8.6 L Hct MCV Plt Count Neutrophils % (Manual) Sodium Potassium Chloride Carbon Dioxide Anion Gap BUN Creatinine 1.49 H Estimated GFR (MDRD) Glucose Calcium Iron Troponin I B-Natriuretic Peptide TSH 3rd Generation 08/08/18 08/08/18 08/09/18 08:39 08:39 06:31 WBC RBC Hgb 8.8 L 8.5 L Hct MCV Plt Count Neutrophils % (Manual) Sodium Potassium Chloride Carbon Dioxide Anion Gap BUN Creatinine 1.42 H Estimated GFR (MDRD) Glucose Calcium Iron Troponin I B-Natriuretic Peptide TSH 3rd Generation 08/09/18 08/10/18 08/10/18 06:31 09:09 09:09 WBC RBC Hgb 7.9 L Hct MCV Plt Count Neutrophils % (Manual) Sodium 135 L 134 L Potassium Chloride Carbon Dioxide Anion Gap BUN Creatinine 1.48 H 1.37 H Estimated GFR (MDRD) Glucose Calcium Iron Troponin I B-Natriuretic Peptide TSH 3rd Generation 11/04/09/19 04/09/19 18:43 18:43 18:43 WBC 13.8 H RBC Hgb 6.7 L Hct MCV 102.0 H Plt Count Neutrophils % (Manual) 80 H Sodium Potassium 4.7 Chloride Carbon Dioxide 19 L Anion Gap BUN Creatinine 1.00 Estimated GFR (MDRD) Glucose Calcium Iron Troponin I 0.142 H B-Natriuretic Peptide TSH 3rd Generation 04/09/19 04/10/19 04/10/19 21:38 02:13 03:25 WBC RBC Hgb 7.4 L Hct MCV Plt Count Neutrophils % (Manual) 76 H Sodium Potassium Chloride Carbon Dioxide Anion Gap BUN Creatinine Estimated GFR (MDRD) Glucose Calcium Iron Troponin I 0.104 H 0.138 H B-Natriuretic Peptide TSH 3rd Generation 04/11/19 04/11/19 06:52 09:14 WBC 32.7 H RBC 2.23 L Hgb 7.1 L Hct 23.6 L MCV 106.0 H Plt Count 246 Neutrophils % (Manual) Sodium 141 Potassium 5.7 H Chloride 115 H Carbon Dioxide 12 L Anion Gap 20 BUN 78 H Creatinine 2.04 H Estimated GFR (MDRD) 24 Glucose 215 H Calcium 7.7 L Iron Troponin I B-Natriuretic Peptide TSH 3rd Generation VB.73/58/39/7.5 PCXR - ETT in place, aeration of bilat grijalva, PM device in place EKG: Paced in 70's Assessment/Plan: Acute Resp Failure - likely multifactorial, intubation now, mech ventilation, serial ABG's, Pulmonology consult, PCXR Sepsis - suspected, start Cefepime/Vanc empirically, blood cx x 2, serial CBC Hypotension - multifactorial, transfuse 2u PRBC's now, IV NS bolus x 2L, Levophed titrated Hyperkalemia - Calcium Gluconate now Severe Metabolic Acidosis - sodium bicarbonate 2 amps now, mech ventilation, IV abx GI bleed with acute blood loss anemia - + gastric ulcers on EGD, 2u PRBC's now, serial H/H, avoid anticoagulation/NSAIDs ALISHA - multifactorial, avoid nephrotoxic meds, IVF's, Cisse catheter for I/O's Total Critical Care Time: 80min
[2019-04-11 09:51] LABS: Carbon Dioxide Less than 8 mmol/L (23-31)
[2019-04-11 09:52] LABS: Anisocytosis MARKED = >30 cells (100X) (0-5/hpf); Band 18 % (5-11); Burr Cells SLIGHT = 2-5 cells (100X) (0-1/hpf); Lymphocytes 14 % (21-51); MDiff Complete? YES; Metamyelocyte 1 % (0-0); Monocytes 8 % (0-10); Myelocyte 1 % (0-0); Neutrophil 58 % (42-75); Nucleated RBC 10 % (0); Platelet Morphology Comment Appears Adequate; Polychromasia MARKED = >4 cells (100X) (0-2/hpf); Reflex for Review?? YES; Toxic Granulation SLIGHT; Vacuoles MODERATE
--- NOTE | 2019-04-11 09:54 | RAD ---
Chest AP view INDICATION: Intubation; code patient COMPARISON: Prior exam dated January 28, 2019 FINDINGS: Lungs:There is perihilar interstitial edema Cardiac silhouette:There is prominent cardiomegaly. Pulmonary vasculature:There is mild to moderate pulmonary vascular congestion Pleural spaces:There are small bilateral pleural effusions Upper abdomen:There is a gastric catheter in place. The tip of the catheter projects below the left h emidiaphragm and beyond the [id number] Osseous structures: No acute osseous abnormality. Additional findings:The patient is intubated. The ET tube tip is seen 3.4 cm a follow-up madi. Dual -lead pacemaker is unchanged in position. IMPRESSION: 1. Interval intubation and gastric catheter placement 2. Findings of mild CHF
[2019-04-11] MEDS ORDERED: Vancomycin HCl 1 GM in Premix Bag 1 BAG IVPB SCH (10:15)
[2019-04-11] MEDS ORDERED: Pantoprazole 80 MG, Admixture Fee 1 EACH in Sodium Chloride 0.9% 100 ML IVP SCH (10:30)
[2019-04-11] MEDS ORDERED: Lactated Ringer's 1,000 ML IV SCH (10:45)
[2019-04-11] MEDS ORDERED: SYSTANE 3.5 GM TUBE EA EYE PRN (10:50)
[2019-04-11] MEDS ORDERED: Cefepime 2 GM in Sodium Chloride 0.9% 100 ML IVPB SCH (11:00)
[2019-04-11] MEDS ORDERED: Ventilator Sedation Protocol 1 EACH FS SCH (11:00)
[2019-04-11] MEDS ORDERED: Vasopressin 40 UNIT, Admixture Fee 1 EACH in Sodium Chloride 0.9% 100 ML IV SCH (11:00)
[2019-04-11] MEDS ORDERED: Fentanyl BOLUS 250 ML IVPB PRN (11:15)
[2019-04-11] MEDS ORDERED: Lorazepam 2 MG/ML VIAL SLOW IVP PRN (11:15)
[2019-04-11] MEDS ORDERED: fentaNYL Citrate/PF 2,000 MCG in Sodium Chloride 0.9% 60 ML IV SCH (11:15)
[2019-04-11] MEDS ORDERED: Morphine 2 MG/ML SYRINGE SLOW IVP PRN (11:15)
[2019-04-11] MEDS ORDERED: Propofol 1,000 MG/100 ML VIAL IV PRN (11:15)
[2019-04-11] MEDS ORDERED: Propofol BOLUS 1,000 MG/100 ML VIAL IV PRN (11:15)
[2019-04-11] MEDS: Hydrocortisone Sod Succ/PF 100 mg/2 ml Vial IVP SCH ×2 (11:30→18:13)
--- NOTE | 2019-04-11 11:30 | RAD ---
PORTABLE CHEST 1 VIEW: DATE: 04/11/2019. TIME: 11:01 a.m. HISTORY: Line placement. Respiratory failure. FINDINGS: There has been interval placement of a right internal jugular central venous catheter with tip in the projection of the cavoatrial junction since the earlier exam of 9:42 a.m. from the same date. No pneumothorax is seen. The remainder of the exam is otherwise stable. POS: [facility]
[2019-04-11 11:45] LABS: Actual Bicarbonate (HCO3a) 4.9 mEq/L (22-28); CO2 Tension 30.9 mmHg (35.0-45.0); Calcium, Ionized 1.14 mmol/L (1.12-1.30); Carboxyhemoglobin (COHb) 0.8 gm% (0.0-3.0); O2 Tension (PaO2) 110.3 mmHg (> 70.0); Potassium - ABG Lab 5.87 mmol/L (3.70-5.30)
[2019-04-11 11:49] LABS: ALV-art Gradient 564.075 (0-20); Puncture Site RBRACH; pH, Arterial 6.81 (7.35-7.45)
[2019-04-11] MEDS ORDERED: Sodium Bicarb 50 MEQ/50 ML VIAL ONE ×2 (11:55→12:02)
[2019-04-11] MEDS: Norepinephrine 16 MG in Dextrose 5% in Water 234 ML IVPB SCH ×2 (11:55→19:35)
[2019-04-11 13:46] LABS: Lactic Acid 17.1 mmol/L (0.5-2.2)
[2019-04-11] MEDS ORDERED: metroNIDAZOLE 500 MG in Premix Bag 1 BAG IVPB SCH (14:00)
[2019-04-11] MEDS ORDERED: Sodium Bicarbonate 150 MEQ in Dextrose 5% in Water 1,000 ML IV SCH (14:00)
[2019-04-11] MEDS: HumaLOG 300 UNITS/3 ML VIAL SC PRN ×2 (15:50→19:35)
--- NOTE | 2019-04-11 16:27 | CON ---
DATE OF CONSULTATION: 04/11/2019 SERVICE: Pulmonary Medicine. REASON FOR CONSULTATION: Shock. HISTORY OF PRESENT ILLNESS: The patient is a 73-year-old female with past medical history significant for horrendous peripheral vascular disease. Ultimately, she was in her usual state of health when she presented to the emergency department with complaints of leg discomfort. She was found to be newly anemic. An EGD was performed yesterday, demonstrating some small peptic ulcers. Ultimately, she was placed on a PPI. I am told that yesterday, she was awake and alert. She was able to communicate well. This morning, she had a change in mentation on morning rounds. Apparently, she was very poorly responsive. She was brought to the ICU. She has very low blood pressures. Her hemoglobins were stable. She was intubated because of respiratory failure and severe acidosis. Apparently, it is a metabolic process. Pressors were initiated and a central line was placed. The patient cannot provide any additional elements of the history and everything is obtained via chart review. PAST MEDICAL HISTORY: 1. Peripheral vascular disease, severe. 2. Type 2 diabetes mellitus. 3. Hypertension. 4. Coronary artery disease. 5. Atrial fibrillation. 6. TIA. 7. Asthma. 8. Osteoarthritis. 9. CKD 3. 10. Chronic diastolic heart failure. 11. Complete heart block, status post pacemaker placement. 12. Peptic ulcer disease. 13. Cataract surgery. PAST SURGICAL HISTORY: 1. Hysterectomy. 2. Tonsillectomy. 3. Coronary artery bypass graft x4 vessels. 4. Carotid endarterectomy on the right. 5. Left carotid endarterectomy. 6. Pericardial patch in 2012. 7. Pacemaker placement. FAMILY HISTORY: Noncontributory. SOCIAL HISTORY: Negative for current alcohol, tobacco, or illicit drug use. ALLERGIES: PENICILLIN, LACTULOSE. MEDICATIONS: List of her inpatient medications was reviewed. Multiple updates were made at this time. REVIEW OF SYSTEMS: Cannot be obtained as the patient is currently intubated and encephalopathic. PHYSICAL EXAMINATION: VITAL SIGNS: Afebrile. Pulse 77, blood pressure 84/65, respirations 29. Saturation previously 98% on 100% FiO2 and a PEEP of 5. GENERAL: The patient is intubated. She is encephalopathic, requiring no sedation. HEENT: Normocephalic and atraumatic. Sclerae are white. Conjunctivae are pink. Oral mucosa is moist without lesions. LUNGS: Decent air entry. No prolonged expiratory phase or wheezing is appreciated. No crackles or rhonchi are noted. HEART: Normal rate. Regular. ABDOMEN: Soft. Bowel sounds are actually present. There is no rebound or guarding. There is no rigidity. MUSCULOSKELETAL: No cyanosis or clubbing. No pitting in the bilateral lower extremities. She has very poor pulses throughout. : Cisse catheter in place. NEUROLOGIC: Grossly nonfocal. She has been witnessed to move all 4 extremities despite having low blood pressures. LABORATORY DATA: WBC 32.7, hemoglobin 7.1, platelets 246,000. INR 1.4. Bicarb is below the assay limit of 8, chloride 114, sodium 140. Potassium 6.1. Creatinine 2.32 and up trending briskly. AST 209, ALT 123. Lactate 13.0. ASSESSMENT: 1. Septic shock, suspected. 2. Severe metabolic acidosis. 3. Respiratory failure secondary to severe acidosis. 4. Asthma without acute exacerbation. 5. Peripheral vascular disease, severe. DISCUSSION AND PLAN: We will give her empiric antibiotics and panculture her. My suspicion is that the patient may have an infection. We will start on stress doses of steroids, Levophed, and vasopressin. Central line has been placed and the patient has been intubated. Two attempts were made at an arterial line in the right femoral region, and both were unsuccessful. As such, this was abandoned. This patient is extremely ill and quite likely to during this hospital stay. Maximal support will be provided however. CRITICAL CARE TIME: 30 minutes. Job ID: [id number] MTDD
--- NOTE | 2019-04-11 17:14 | PRG ---
DATE OF SERVICE: 04/11/2019 REASON FOR CONSULTATION: Hematemesis, status post intervention. SUBJECTIVE: The patient underwent EGD yesterday afternoon after exhibiting hematemesis while in the ICU. During the EGD, she was noted to have an area of blood oozing from the gastric mucosa concerning for a small vessel versus Dieulafoy/AVM. This was subsequently intervened upon with bipolar cauterization with good hemostasis achieved after the maneuver. However, earlier this morning, the patient was noted to have significant hypotension, displayed altered mental status and respiratory distress and subsequently underwent endotracheal tube intubation and placed on mechanical ventilation for further support. Currently, she is on 2 different pressors in order to maintain blood pressure with further workup ongoing at this time. She does have some darker colored/coffee-ground looking appearing fluid coming from her NG tube, but no evidence of gross blood both in the canister and per nursing staff. She has not had any melenic-type stools since the procedure yesterday as well. Early this morning, she did receive 2 units of PRBCs with no repeat CBC after the administration of blood. Currently, she is in no observed distress, however, the patient is intubated and sedated. OBJECTIVE: VITAL SIGNS: Temperature 98.5, pulse 74, blood pressure 46/28 (difficult to obtain an extremity blood pressure at the current time), respiratory rate 28, saturating 100% on mechanical ventilation. GENERAL: The patient was lying in bed, in no acute distress, intubated and sedated on mechanical ventilator. CARDIOVASCULAR: Regular rate and rhythm with no discernible murmurs, gallops, or rubs (although difficult to auscultate over the ventilator sounds). RESPIRATORY: Coarse breath sounds are auscultated in all lung grijalva consistent with mechanical ventilation. ABDOMEN: Hypoactive bowel sounds. Soft. No discernible grimacing to palpation. EXTREMITIES: Trace edema in the bilateral lower extremities extending to mid burger with distal extremities that are cool to the touch and slight pallor. LABORATORY DATA: CBC with a white blood cell count of 32.7, hemoglobin 7.1, hematocrit 23.6, platelets 246. Chemistry with a sodium of 140, potassium 6.1, chloride 114, CO2 less than 8, BUN 77, creatinine 2.32, glucose 291, AST 209, ALT 123, alkaline phosphatase 41, total bilirubin 0.8, albumin 2.8. Lactic acid 13. IMAGING DATA: No current GI imaging is available for review. ASSESSMENT AND PLAN: The patient is a 73-year-old female with past medical history including coronary artery disease, status post coronary artery bypass grafting; atrial fibrillation, on chronic anticoagulation; peripheral vascular/arterial disease; hypertension; asthma; transient ischemic attacks; osteoarthritis; diabetes; chronic kidney disease stage 3; diastolic heart failure; chronic anemia; and bradycardia, status post pacemaker placement; presenting with hematemesis and now with respiratory compromise, hypotension, and significant leukocytosis. Hematemesis: The patient initially presented to the hospital with complaints of lower extremity pain, and during the course of her workup, was noted to have a significant anemia when compared to previous. When she was transferred to the ICU, she exhibited hematemesis, characterized as dark black/coffee-ground emesis, and subsequently underwent EGD performed on April 10, 2019. During the EGD, she was noted to have oozing within the proximal body/cardia of a possible small visible vessel versus an atypical ectasia. This was subsequently intervened upon with 7-Maldivian bipolar cautery probe with good hemostasis achieved. Repeat CBC after the procedure did show a mild decrease in her hemoglobin and hematocrit, but there has been no evidence of acute or gross hematemesis or melena since the procedure. At this time, it is unclear if the gastrointestinal bleed contributed to her hypotension and respiratory compromise, but it seems unlikely to have done so given her relatively small decrease in H and H when compared to the blood loss that would have been needed in order to generate the change in her respiratory status. She does continue to have some darker-colored fluid coming from her NG tube, which is concerning for the possible presence of continued GI bleed, but it is unclear if this was related to the initial gastrointestinal bleed versus intervention that was done yesterday: Recommendations: 1. We would continue to trend her H and H and transfuse as necessary to maintain an H and H of /. 2. Continue to monitor clinically for signs of active GI bleeding. 3. If the patient's H and H continue to drop, we would then consider repeat upper endoscopy for further evaluation. 4. We would continue to hold all anticoagulation in light of GI bleeding. Lactic acidosis/metabolic acidosis: The patient exhibited significant decompensation this morning with respiratory compromise that appears to have resulted in both respiratory and metabolic acidosis. This is most likely related to the significant hypotension exhibited earlier this morning. With the hypotension this morning, it also has generated a probable ischemic type event within the liver as denoted by an elevation in both her AST and ALT as well as the significantly elevated lactic acid. The origin of this significant ischemia though is unclear with being within the liver, small bowel, or distal extremities given her significant vasculopathy prior to admission. At this time, it seems to be less likely related to a gastrointestinal process, given the lack of abdominal rigidity on physical exam that may be consistent with ischemic bowel nor has she exhibited increased diarrhea that may be accompanied with diagnosis well, although it cannot be ruled out at this time. Recommendations: 1. We would continue with pressor support to maintain normotensive pressures as you are doing. 2. Agree with continued management within the ICU setting. 3. We would defer to critical care team for further management of the acidosis. We will continue to follow. Please call with any questions. Job ID: [id number]
[2019-04-11 17:32] LABS: Lactic Acid 20.1 mmol/L (0.5-2.2)
[2019-04-11 20:16] VITALS: TEMP 97.5
[2019-04-11 20:22] VITALS: BP 77/65
--- NOTE | 2019-04-11 20:54 | PDOC.OP ---
Operative Note - Operative Note Operative Note: Right IJ Central Line Placement INDICATION: Hypotension requiring vasopressors PHYSICIAN: Amalia Mccray MD PGY-2 ATTENDING PHYSICIAN: Dr. Wellington Lundy CONSENT: The procedure was performed emergently and the permission was implied because of the emergent nature and metabolic encephalopathy. PROCEDURE SUMMARY: Sterile technique was preformed. The patient was placed in Trendelenburg position. Right chest region was prepped using chlorhexidine scrub and draped in sterile fashion using a full drape and sterile probe cover employed. The medial and lateral heads of the sternocleidomastoid muscle were identified. The Internal Jugular vein was identified using the ultrasound. Using real-time out of plane guidance, the introducer needle was inserted into the Internal Jugular vein under direct ultrasound visualization. Venous blood was withdrawn. The syringe was removed and a guidewire was advanced into the introducer needle. The guidewire was visualized in the Internal Jugular Vein by ultrasound. A small incision was made at the skin surface with a scalpel and the introducer needle was exchanged for a dilator over the guidewire. After appropriate dilation was obtained, the dilator was exchanged over the wire for a central venous catheter. The wire was removed and the catheter was sutured in place. Dressing was applied. The patient tolerated the procedure wwell. At time of procedure completion, all ports aspirated and flushed properly. Post-procedure chest x-ray is pending at this time. Estimated blood loss is 5ml.
[2019-04-11] MEDS ORDERED: Pantoprazole 40 MG VIAL IVP SCH (21:00)
[2019-04-12] MEDS ORDERED: Cefepime 1 GM in Sodium Chloride 0.9% 100 ML IVPB SCH (11:00)
--- NOTE | 2019-04-12 13:30 | DIS ---
DATE OF ADMISSION: 04/09/2019 DATE OF DISCHARGE: 04/11/2019 DATE OF EXPIRATION: 04/11/2019. FINAL DIAGNOSES: 1. Acute hypoxic hypercapnic respiratory failure, multifactorial. 2. Severe sepsis with septic shock, suspected. 3. Severe hypotension. 4. Severe metabolic acidosis. 5. Hyperkalemia. 6. Acute upper GI bleed secondary to gastric ulceration, status post 4 units of packed red blood cells. 7. Gastric ulcerations status post cauterization. 8. Acute kidney injury, multifactorial. 9. Severe peripheral vascular disease. 10. Diabetes mellitus type 2, insulin-requiring with nephropathy and peripheral neuropathy. CONSULTATIONS: 1. Dr. Cleary with Pulmonary/Critical Care Service. 2. Dr. Jennings and Dr. Dorsey with GI Service. 3. Dr. Prince and Dr. Damon with Vascular Surgery Service. PERTINENT LABORATORY AND X-RAY FINDINGS: Potassium ranged between 4.7 to 6.1, carbon dioxide level ranged between less than 8 to 19, creatinine ranged between 1.0 to 2.32. Lactic acid level ranged between 13 to 20.1. Magnesium level 1.8. AST ranged between 17 to 209. ALT ranged between 16 to 123. Troponin I ranged between 0.104 to 0.142. CBC showed a white blood cell count ranging between 13.8 to 32.7, hemoglobin ranged between 6.7 to 7.7. Blood cultures x2 dated 04/11/2019, showed no growth to date. Urine culture dated 04/11/2019, showed mixed culture. Three views of the right foot dated 04/09/2019, showed equivocal findings in the lateral base of the first distal phalanx concerning for osteopenia versus early osteomyelitis. CT angiogram of the aorta with bilateral runoff dated 04/09/2019, showed atherosclerotic disease of bilateral lower extremities similar to previous exam on 01/24/2019, please see dictated report for full details. EGD dated 04/10/2019, showed possible small visible vessel versus atypical ectasia in the proximal body and cardia of the stomach. 2D transthoracic echocardiogram dated 04/11/2019, showed a technically limited exam, severe mitral regurgitation noted, moderate mitral stenosis and moderate aortic stenosis, severe tricuspid regurgitation, ejection fraction of 25% to 30%. HOSPITAL COURSE: The patient was initially admitted to the intermediate care unit after presenting with a lower extremity pain in the context of severe peripheral vascular disease in addition to symptomatic anemia with initial hemoglobin of 6.8. The patient received 2 units of packed red blood cells after presentation and evaluated by the GI Service. The patient is on chronic Eliquis and aspirin due to severe peripheral vascular disease. Anticoagulation was held at the time of admission; however, the patient exhibited worsening anemia; undergoing EGD evaluation on 04/10/2019, showing atypical ectasia with fresh blood in the stomach. The patient underwent cauterization of the area and continued on a Protonix infusion. The patient was also evaluated by the Vascular Surgery Service with recommendations to consider amputation of the lower extremity due to severe peripheral vascular disease. The patient was discovered unresponsive in the upholsterer limousine and hearse hours on 04/11/2019, with severe hypotension. The patient was also noted with respiratory distress and transferred to the Critical Care Unit. Due to the patient's unresponsiveness and hypotension, the patient underwent intubation with placement of endotracheal tube and mechanical ventilation. The patient also received aggressive IV fluids in addition to additional 2 units of packed red blood cells, undergoing ACLS protocol and a code blue activation. The patient was also placed on a vasopressor support with Levophed and continued with aggressive volume replacement. The patient was noted severely acidotic with metabolic process suspected. The patient received IV antibiotics empirically, however, with aggressive and comprehensive resuscitation and evaluation by the Critical Care Service, the patient was unable to respond and recover. Discussions were had with the family regarding ongoing aggressive measures and the family decided to pursue do not attempt resuscitation status. The patient at 2243 on 04/11/2019, with family present at the bedside. No autopsy was performed and decedent affairs were notified. Job ID: [id number]
--- NOTE | 2019-04-13 19:36 | PQF ---
SORAIDA BARBA CHARLES DO [id number] CLINICAL DOCUMENTATION CLARIFICATION FORM: POST DISCHARGE Addendum to original discharge summary date: ____ Late entry note date: __ DATE: 04/13/19 ATTN: Surjit Mariano Please exercise your independent, professional judgment in responding to the clarification form. Clinical indicators are provided on the bottom of this form for your review Diagnosis: Severe sepsis with septic shock Present on Admission (POA): [ ] Yes [ x ] No [ ] Unable to determine Coding guidelines require hospitals to identify whether a diagnosis was present on admission (POA) or not. To accurately assign the appropriate POA indicator, this information must be clearly documented within the medical record. CLINICAL INDICATORS - SIGNS / SYMPTOMS / LABS H and P pg.3- "Symptomatic anemia" Event Note 04/11 pg.1- code blue called due to unresponsiveness and hypotension Event Note 04/11 pg.5- sepsis suspected Consult 04/11 Dr. Cleary pg.2- septic shock, suspected DS pg.1- Severe sepsis with septic shock, suspected DS pg.1- lactic acid level ranged between 13 to 20.1 RISK FACTORS: Acute kidney injury- Hospitalist PN 04/10 Dr. Henriquez pg.7 Acute respiratory failure- Event Note 04/11 pg.6 GI Bleed with acute blood loss anemia-Event Note 04/11 pg.6 Hypotension-Event Note 04/11 pg.6 Laboratory- WBC 13.8, 17.3, 20.6, 32.7H TREATMENT: Levophed and vasopressin- Consult Dr. Cleary 04/11 pg.3 PICC Placement-OP Note 04/11 Dr. Mccray IV Fluids- MAR IV Antibiotics- MAR Blood transfusion- Blood bank (This form is maintained as a part of the permanent medical record) 2014 [employer]. All Rights Reserved Karoline [email or web address] [phone] DELLA
--- NOTE | 2019-04-14 21:13 | EKG ---
Test Reason : CODE GREEN - BLUE Blood Pressure : / mmHG Vent. Rate : 079 BPM Atrial Rate : 079 BPM P-R Int : 168 ms QRS Dur : 136 ms QT Int : 458 ms P-R-T Axes : 044 -88 088 degrees QTc Int : 525 ms Electronic ventricular pacemaker When compared with ECG of 09-APR-2019 19:09, (Unconfirmed) Vent. rate has decreased BY 16 BPM Confirmed by Efra ORNELAS ([id number]) on 04/14/2019 9:13:00 PM Referred By: ABHILASH Confirmed By:Efra ORNELAS
== END 2019-04-11 22:43 | disposition expired | DRG 377 ==
LOC: ERS 17:49 → IMCU/EMU 22:19 → CCU 04-11 09:07
PROVIDERS: ADMIT Internal Medicine; ATTEND Internal Medicine
PROC: 30233N1 Transfusion of Nonautologous Red Blood Cells into Peripheral Vein, Percutaneous Approach (ICD-10-PCS; 2019-04-09)
PROC: 0W3P8ZZ Control Bleeding in Gastrointestinal Tract, Via Natural or Artificial Opening Endoscopic (ICD-10-PCS; principal; 2019-04-10)
PROC: 0BH17EZ Insertion of Endotracheal Airway into Trachea, Via Natural or Artificial Opening (ICD-10-PCS; 2019-04-10)
PROC: 5A1935Z Respiratory Ventilation, Less than 24 Consecutive Hours (ICD-10-PCS; 2019-04-10)
PROC: 02HV33Z Insertion of Infusion Device into Superior Vena Cava, Percutaneous Approach (ICD-10-PCS; 2019-04-11)
PROC: 3E043XZ Introduction of Vasopressor into Central Vein, Percutaneous Approach (ICD-10-PCS; 2019-04-11)
DX: K25.4 Chronic or unspecified gastric ulcer with hemorrhage (principal); G93.41 Metabolic encephalopathy; R65.21 Severe sepsis with septic shock; A41.9 Sepsis, unspecified organism; J96.01 Acute respiratory failure with hypoxia; J96.02 Acute respiratory failure with hypercapnia; I50.32 Chronic diastolic (congestive) heart failure; I13.0 Hypertensive heart and chronic kidney disease with heart failure and stage 1 through stage 4 chronic kidney disease, or unspecified chronic kidney disease; N17.9 Acute kidney failure, unspecified; I25.810 Atherosclerosis of coronary artery bypass graft(s) without angina pectoris; D62 Acute posthemorrhagic anemia; E87.2 Acidosis; E11.51 Type 2 diabetes mellitus with diabetic peripheral angiopathy without gangrene; Z66 Do not resuscitate; E78.5 Hyperlipidemia, unspecified; E78.00 Pure hypercholesterolemia, unspecified; M19.90 Unspecified osteoarthritis, unspecified site; J45.909 Unspecified asthma, uncomplicated; N18.3 Chronic kidney disease, stage 3 (moderate); I48.0 Paroxysmal atrial fibrillation; E66.8 Other obesity; D63.1 Anemia in chronic kidney disease; E11.22 Type 2 diabetes mellitus with diabetic chronic kidney disease; E11.42 Type 2 diabetes mellitus with diabetic polyneuropathy; I05.0 Rheumatic mitral stenosis; F41.9 Anxiety disorder, unspecified; Z79.4 Long term (current) use of insulin; Z95.1 Presence of aortocoronary bypass graft; Z95.0 Presence of cardiac pacemaker; Z79.01 Long term (current) use of anticoagulants; Z86.73 Personal history of transient ischemic attack (TIA), and cerebral infarction without residual deficits; Z87.891 Personal history of nicotine dependence; Z88.0 Allergy status to penicillin; Z88.1 Allergy status to other antibiotic agents; Z88.8 Allergy status to other drugs, medicaments and biological substances; Z79.51 Long term (current) use of inhaled steroids; Z79.82 Long term (current) use of aspirin; Z79.899 Other long term (current) drug therapy; Z68.33 Body mass index [BMI] 33.0-33.9, adult; Z90.710 Acquired absence of both cervix and uterus; E87.5 Hyperkalemia; I95.9 Hypotension, unspecified
CPT/HCPCS: 36415; 36416; 36430; 71045; 75635; 80048; 80053; 82550; 82553; 82805; 83605; 83735; 84484; 85025; 85060; 85610; 85730; 86850; 86870; 86900; 86901; 86922; 87040; 87077; 87086; 87186; 93005; 93010; 93306; 94002; 94640; 94664; C9113; J0692; J1720; J1885; J2270; J2405; J2704; J3010; J3370; J3490; J7070; J7620; P9016; Q9967